=== PATIENT | male | born 1955 | race Caucasian/White ===

== ENCOUNTER 2019-10-03 13:52 | Inpatient (IN) | payer MEDICARE ==
[~2019-10-03] VITALS: Ht 175.3 cm; Wt 82.0 kg
[2019-10-03] MEDS ORDERED: LORazepam 2 mg/ml vial IV ONE (15:40)
[2019-10-03] MEDS ORDERED: thiamine 100mg/ml 2ml inj. IV ONE (15:40)
[2019-10-03] MEDS ORDERED: folic acid 1mg/0.2ml inj IV ONE (15:40)
[2019-10-03] MEDS ORDERED: normal saline 1000ML IV soln IVB ONE (15:40)
[2019-10-03 16:38] LABS: ALANINE AMINOTRANSFERASE 125 U/L (12-78); ALBUMIN 4.1 G/DL (3.4-5.0); ALKALINE PHOSPHATASE 87 IU/L (46-116); AMYLASE 80 U/L (25-115); ANION GAP 13 (8-16); ASPARTATE AMINO TRANSFERASE 111 U/L (10-37); BILIRUBIN,TOTAL 1.2 MG/DL (0.1-1.0); BLOOD UREA NITROGEN 40 MG/DL (7-18); BUN/CREATININE RATIO 15.2 (5.4-32.0); CALCIUM 10.2 MG/DL (8.5-10.1); CHLORIDE 90 MMOL/L (99-107); CREATININE 2.63 MG/DL (0.60-1.10); ETHANOL < 0.010 GM/DL (0.0-0.010); GLUCOSE 112 MG/DL (70-104); LIPASE 321 U/L (73-393); MAGNESIUM 1.4 MG/DL (1.5-2.4); POTASSIUM 5.2 MMOL/L (3.5-5.1); SODIUM 124 MMOL/L (135-145); TOTAL CARBON DIOXIDE 20.7 MMOL/L (24-32); TOTAL PROTEIN 8.1 G/DL (6.4-8.2); eGFR 24 ML/MIN
[2019-10-03] MEDS ORDERED: ondansetron/PF 4mg/2ml inj IV PRN (19:45)
[2019-10-03] MEDS ORDERED: acetaminophen 325mg tablet PO PRN (19:45)
[2019-10-03] MEDS ORDERED: potassium Cl 20 mEq SR tablet PO PRN ×2 (19:45)
[2019-10-03] MEDS ORDERED: potassium CL 10mEq/100ml bag 100 ML IV PRN ×2 (19:45)
[2019-10-03] MEDS ORDERED: magnesium 2GM in 50ml NS 50 ML IV PRN (19:45)
[2019-10-03] MEDS ORDERED: magnesium 4gm in 100ml NS 100 ML IV PRN (19:45)
[2019-10-03] MEDS: K and/or MAG REPLACEMENT MC SCH (20:00)
[2019-10-03 20:13] LABS: CLARITY,URINE CLEAR (Clear); COLOR,URINE AMBER (Yellow); GLUCOSE, URINE NEGATIVE (Neg); KETONES,URINE TRACE mg/dl (Neg); LEUKOCYTE ESTERASE ,URINE NEGATIVE (Neg); NITRITES, URINE NEGATIVE (Neg); OCCULT BLOOD,URINE NEGATIVE (Neg); PH,URINE 5.5 (4.8-8.0); PROTEIN,URINE NEGATIVE (Neg)
[2019-10-03 20:14] LABS: UA COLLECTION TYPE CLN CATCH MIDSTREAM
[2019-10-03 20:26] LABS: URINE AMPHETAMINE SCREEN NEGATIVE (Neg); URINE BARBITUATE SCREEN NEGATIVE (Neg); URINE BENZODIAZEPINES SCREEN NEGATIVE (Neg); URINE CANNABINOID SCREEN NEGATIVE (Neg); URINE COCAINE SCREEN NEGATIVE (Neg); URINE METHADONE SCREEN NEGATIVE (Neg); URINE OPIATE SCREEN NEGATIVE (Neg); URINE PHENCYCLIDINE SCREEN NEGATIVE (Neg)
--- NOTE | 2019-10-03 20:30 | NUR ---
Patient ER to be transferred in room PCU 3013A. I have received bedside report from Dale Campos RN and had the opportunity to ask questions and assume patient care.
[2019-10-03 20:50] VITALS: BP 152/61
[2019-10-03] MEDS: normal saline 1000ml 1,000 ML IV SCH (21:30)
[2019-10-03] MEDS: magnesium Cl slow-release 64mg tablet PO PRN (22:40)
[2019-10-03 23:00] VITALS: BP 134/57
--- NOTE | 2019-10-04 00:07 | NUR ---
PAGER ID: [phone] MESSAGE: Patient Sukhdeep Bolton in room 3013A is requesting a sleeping pill and/or pain pill due to ETOH tremor aches. [facility] Margo [phone]
--- NOTE | 2019-10-04 00:15 | NUR ---
has ordered PRN Tylenol 650 MG and stated she will soon be at bedside to do assessment.
[2019-10-04] MEDS ORDERED: dextrose 50%-water 50ml dispensing syringe IV PRN (00:55)
[2019-10-04] MEDS ORDERED: thiamine 100mg/ml 2ml inj. IV ONE (00:55)
[2019-10-04] MEDS ORDERED: haloperidol lactate 5mg/ml inj IM PRN (00:55)
[2019-10-04] MEDS ORDERED: haloperidol 5mg tablet PO PRN (00:55)
[2019-10-04] MEDS ORDERED: LORazepam 2 mg/ml vial IV PRN (00:55)
[2019-10-04] MEDS ORDERED: acetaminophen 325mg tablet PO PRN (01:00)
[2019-10-04 01:09] LABS: BASOPHILS # (AUTO) 0.1 X10'3 (0-0.2); BASOPHILS % (AUTO) 1.7 % (0-1); EOSINOPHILS # (AUTO) 0.1 X10'3 (0-0.9); EOSINOPHILS % (AUTO) 0.8 % (0-6); HEMOGLOBIN 12.8 g/dl (14.0-17.9); LYMPHOCYTES # (AUTO) 2.5 X10'3 (1.1-4.8); LYMPHOCYTES % (AUTO) 32.7 % (21-51); MEAN CORPUSCULAR HEMOGLOBIN 37.6 PG (27.0-31.0); MEAN CORPUSCULAR HGB CONC 34.7 g/dL (33.0-36.5); MEAN CORPUSCULAR VOLUME 108.5 FL (78-98); MEAN PLATELET VOLUME 8.7 FL (7.4-10.4); MONOCYTES # (AUTO) 1.1 X10'3 (0-0.9); MONOCYTES % (AUTO) 14.3 % (2-12); NEUTROPHILS # (AUTO) 3.8 X10'3 (1.8-7.7); NEUTROPHILS % (AUTO) 50.5 % (42-75); PLATELET COUNT 189 X10'3 (140-440); RED BLOOD COUNT 3.41 X10'6 (4.70-6.10); RED CELL DISTRIBUTION WIDTH 12.6 % (11.5-14.5); WHITE BLOOD COUNT 7.6 X10'3 (4.5-11.0)
[2019-10-04] MEDS: LORazepam 1 MG tablet PO PRN ×2 (01:12→20:32)
[2019-10-04] MEDS: Melatonin 3mg tablet PO PRN ×2 (01:13→20:32)
[2019-10-04 01:15] LABS: ALBUMIN 4.1 G/DL (3.4-5.0); ANION GAP 13 (8-16); BLOOD UREA NITROGEN 40 MG/DL (7-18); BUN/CREATININE RATIO 17.8 (5.4-32.0); CHLORIDE 91 MMOL/L (99-107); CREATININE 2.25 MG/DL (0.60-1.10); GLUCOSE 122 MG/DL (70-104); MAGNESIUM 1.4 MG/DL (1.5-2.4); SODIUM 125 MMOL/L (135-145); TOTAL CARBON DIOXIDE 20.8 MMOL/L (24-32); eGFR 29 ML/MIN
[2019-10-04 01:16] LABS: POTASSIUM 4.5 MMOL/L (3.5-5.1)
--- NOTE | 2019-10-04 01:20 | NUR ---
PAGER ID: [phone] MESSAGE: Patient Sukhdeep Bolton in room 3017P is experiencing constipation and is in need of MOM. U Margo [phone]
--- NOTE | 2019-10-04 01:25 | NUR ---
MD Garduno ordered a 1x order of MOM and BID colace 100 MG.
[2019-10-04] MEDS ORDERED: magnesium hydroxide 30ml (MOM) UD suspension PO ONE (01:30)
[2019-10-04 03:00] VITALS: BP 117/62
[2019-10-04 06:00] VITALS: BP 109/64
--- NOTE | 2019-10-04 06:24 | NUR ---
Patient in room PCU 3013. I have received report from RAFAELA Aragon and had the opportunity to ask questions and assume patient care.
--- NOTE | 2019-10-04 06:39 | NUR ---
Problems reprioritized. Patient report given, questions answered & plan of care reviewed with RAFAELA Esquivel.
[2019-10-04] MEDS: K and/or MAG REPLACEMENT MC SCH ×2 (08:00→20:00)
[2019-10-04] MEDS: docusate sod 100mg capsule PO SCH ×2 (08:24→20:30)
[2019-10-04] MEDS ORDERED: METO-411 (09:17)
[2019-10-04] MEDS ORDERED: SPIR25TA5 (09:17)
[2019-10-04] MEDS ORDERED: AMLO10TA13 (09:17)
[2019-10-04] MEDS ORDERED: LISI40TA4 (09:17)
[2019-10-04] MEDS ORDERED: PANT40TA4 (09:17)
[2019-10-04] MEDS ORDERED: HYDR12.55 (09:17)
[2019-10-04] MEDS ORDERED: pneumococcal 23-VAL P-sac vacc 25 mcg/0.5ml vial IMVAC ONE (10:00)
[2019-10-04] MEDS: normal saline 1000ml 1,000 ML IV SCH ×2 (10:51→21:12)
[2019-10-04] MEDS ORDERED: METO-411 PO (10:57)
[2019-10-04 11:00] VITALS: BP 100/52
[2019-10-04] MEDS ORDERED: PANT40TA4 PO (11:21)
[2019-10-04] MEDS ORDERED: HYDR12.55 PO (11:21)
[2019-10-04] MEDS ORDERED: AMLO10TA48 PO (11:21)
[2019-10-04] MEDS ORDERED: LISI40TA4 PO (11:21)
[2019-10-04] MEDS ORDERED: SPIR25TA5 PO (11:23)
[2019-10-04] MEDS: magnesium Cl slow-release 64mg tablet PO PRN (11:41)
[2019-10-04] MEDS ORDERED: bisacodyl 10mg suppository rectal RC STA (11:49)
[2019-10-04] MEDS: pantoprazole 40mg Tablet.DR PO SCH (14:03)
[2019-10-04 18:00] VITALS: BP 127/72
--- NOTE | 2019-10-04 18:16 | NUR ---
Problems reprioritized. Patient report given, questions answered & plan of care reviewed with RAFAELA Araujo.
--- NOTE | 2019-10-04 18:44 | NUR ---
Patient in room PCU 3013. I have received report from Eran RUSSO and had the opportunity to ask questions and assume patient care.
[2019-10-04] MEDS: lisinopril 20mg tablet PO SCH (20:31)
[2019-10-04 22:00] VITALS: BP 103/61
[2019-10-05 02:00] VITALS: BP 98/68
[2019-10-05] MEDS: LORazepam 1 MG tablet PO PRN (02:10)
[2019-10-05 06:00] VITALS: BP 132/69
[2019-10-05 06:07] LABS: BASOPHILS % (AUTO) 0.8 % (0-1); EOSINOPHILS % (AUTO) 0.6 % (0-6); HEMATOCRIT 29.3 % (42.0-52.0); HEMOGLOBIN 10.1 g/dl (14.0-17.9); LYMPHOCYTES # (AUTO) 1.7 X10'3 (1.1-4.8); LYMPHOCYTES % (AUTO) 30.4 % (21-51); MEAN CORPUSCULAR HEMOGLOBIN 37.5 PG (27.0-31.0); MEAN CORPUSCULAR HGB CONC 34.4 g/dL (33.0-36.5); MEAN CORPUSCULAR VOLUME 108.9 FL (78-98); MEAN PLATELET VOLUME 8.5 FL (7.4-10.4); MONOCYTES # (AUTO) 0.8 X10'3 (0-0.9); MONOCYTES % (AUTO) 14.5 % (2-12); NEUTROPHILS # (AUTO) 3.1 X10'3 (1.8-7.7); NEUTROPHILS % (AUTO) 53.7 % (42-75); PLATELET COUNT 145 X10'3 (140-440); RED BLOOD COUNT 2.69 X10'6 (4.70-6.10); RED CELL DISTRIBUTION WIDTH 13.1 % (11.5-14.5); WHITE BLOOD COUNT 5.8 X10'3 (4.5-11.0)
[2019-10-05 06:12] LABS: ALBUMIN 3.1 G/DL (3.4-5.0); ANION GAP 9 (8-16); BLOOD UREA NITROGEN 34 MG/DL (7-18); BUN/CREATININE RATIO 19.3 (5.4-32.0); CALCIUM 8.6 MG/DL (8.5-10.1); CHLORIDE 99 MMOL/L (99-107); CREATININE 1.76 MG/DL (0.60-1.10); GLUCOSE 103 MG/DL (70-104); MAGNESIUM 1.2 MG/DL (1.5-2.4); POTASSIUM 4.5 MMOL/L (3.5-5.1); SODIUM 131 MMOL/L (135-145); TOTAL CARBON DIOXIDE 22.6 MMOL/L (24-32); eGFR 39 ML/MIN
--- NOTE | 2019-10-05 07:22 | NUR ---
Problems reprioritized. Patient report given, questions answered & plan of care reviewed with Randa RUSSO.
[2019-10-05 07:25] LABS: PLATELET ESTIMATE NORMAL
[2019-10-05 07:26] LABS: ACANTHOCYTES FEW; BURR CELLS FEW
[2019-10-05] MEDS: K and/or MAG REPLACEMENT MC SCH ×2 (08:00→19:21)
[2019-10-05] MEDS ORDERED: amLODIPine 5mg tablet PO SCH (08:00)
[2019-10-05] MEDS: docusate sod 100mg capsule PO SCH ×2 (08:33→19:20)
[2019-10-05] MEDS: pantoprazole 40mg Tablet.DR PO SCH (08:33)
[2019-10-05] MEDS: lisinopril 20mg tablet PO SCH ×2 (08:34→19:20)
[2019-10-05] MEDS: normal saline 1000ml 1,000 ML IV SCH ×3 (08:36→22:37)
[2019-10-05 11:00] VITALS: BP 119/59
--- NOTE | 2019-10-05 12:44 | NUR ---
Patient in room PCU 3013. I have received report from RAFAELA Araujo and had the opportunity to ask questions and assume patient care. Patient currently sleeping, bed locked and low, call light in reach, visible rise and fall of chest, no acute distress, will continue to monitor.
[2019-10-05 15:00] VITALS: BP 149/70
[2019-10-05 18:00] VITALS: BP 125/70
--- NOTE | 2019-10-05 18:16 | NUR ---
Problems reprioritized. Patient report given, questions answered & plan of care reviewed with RAFAELA Dozier.
[2019-10-05] MEDS: magnesium Cl slow-release 64mg tablet PO PRN (19:21)
[2019-10-05] MEDS: Melatonin 3mg tablet PO PRN (21:47)
[2019-10-05 22:00] VITALS: BP 132/87
[2019-10-06 02:00] VITALS: BP 130/70
[2019-10-06 06:00] VITALS: BP 130/60
[2019-10-06 06:01] LABS: BASOPHILS # (AUTO) 0.1 X10'3 (0-0.2); BASOPHILS % (AUTO) 0.8 % (0-1); EOSINOPHILS % (AUTO) 0.7 % (0-6); HEMATOCRIT 26.9 % (42.0-52.0); HEMOGLOBIN 9.3 g/dl (14.0-17.9); LYMPHOCYTES # (AUTO) 2.1 X10'3 (1.1-4.8); LYMPHOCYTES % (AUTO) 31.5 % (21-51); MEAN CORPUSCULAR HEMOGLOBIN 37.9 PG (27.0-31.0); MEAN CORPUSCULAR HGB CONC 34.6 g/dL (33.0-36.5); MEAN CORPUSCULAR VOLUME 109.4 FL (78-98); MEAN PLATELET VOLUME 8.7 FL (7.4-10.4); MONOCYTES # (AUTO) 0.9 X10'3 (0-0.9); MONOCYTES % (AUTO) 13.1 % (2-12); NEUTROPHILS # (AUTO) 3.6 X10'3 (1.8-7.7); NEUTROPHILS % (AUTO) 53.9 % (42-75); PLATELET COUNT 137 X10'3 (140-440); RED BLOOD COUNT 2.46 X10'6 (4.70-6.10); WHITE BLOOD COUNT 6.7 X10'3 (4.5-11.0)
[2019-10-06 06:20] LABS: ALBUMIN 3.2 G/DL (3.4-5.0); ANION GAP 11 (8-16); BLOOD UREA NITROGEN 21 MG/DL (7-18); BUN/CREATININE RATIO 15.7 (5.4-32.0); CALCIUM 8.5 MG/DL (8.5-10.1); CHLORIDE 101 MMOL/L (99-107); CREATININE 1.34 MG/DL (0.60-1.10); GLUCOSE 100 MG/DL (70-104); POTASSIUM 3.9 MMOL/L (3.5-5.1); SODIUM 133 MMOL/L (135-145); TOTAL CARBON DIOXIDE 21.2 MMOL/L (24-32); eGFR 53 ML/MIN
--- NOTE | 2019-10-06 06:20 | NUR ---
Pt is stable on shift change. Patient report given, questions answered & plan of care reviewed with RAFAELA Tolentino.
--- NOTE | 2019-10-06 06:20 | NUR ---
Patient in room PCU 3013A. I have received report from aTsia RUSSO and had the opportunity to ask questions and assume patient care. Patient laying in bed, wakes to voice, stable at this time.
--- NOTE | 2019-10-06 06:24 | NUR ---
Critical lab result paged to Dr. Metcalf, replacement protocol in place. PAGER ID: [phone] MESSAGE: Randa duffy [phone]. Sandra Appiah [id number]. Critical lab: Mag 1.0. Replacement protocol in place. Will start replacement.
[2019-10-06] MEDS: normal saline 1000ml 1,000 ML IV SCH ×2 (08:07→17:45)
[2019-10-06] MEDS: K and/or MAG REPLACEMENT MC SCH ×2 (08:07→19:39)
[2019-10-06] MEDS: pantoprazole 40mg Tablet.DR PO SCH (08:08)
[2019-10-06] MEDS: amLODIPine 5mg tablet PO SCH (08:08)
[2019-10-06] MEDS: docusate sod 100mg capsule PO SCH ×2 (08:09→19:38)
[2019-10-06] MEDS: lisinopril 20mg tablet PO SCH ×2 (08:09→19:39)
[2019-10-06] MEDS: magnesium Cl slow-release 64mg tablet PO PRN ×2 (08:10→19:38)
[2019-10-06 11:00] VITALS: BP 145/85
[2019-10-06 15:00] VITALS: BP 135/65
[2019-10-06 18:00] VITALS: BP 135/63
--- NOTE | 2019-10-06 18:15 | NUR ---
Patient in room PCU 3013. I have received report from RAFAELA Tolentino and had the opportunity to ask questions and assume patient care.
--- NOTE | 2019-10-06 18:18 | NUR ---
Problems reprioritized. Patient report given, questions answered & plan of care reviewed with Dorothy RUSSO.
[2019-10-06 19:12] LABS: % IRON SATURATION 31 % (11-46); IRON 74 UG/DL (53-167); TOTAL IRON BINDING CAPACITY 241 UG/DL (259-388)
[2019-10-06] MEDS: Melatonin 3mg tablet PO PRN (21:01)
[2019-10-06 22:00] VITALS: BP 138/58
[2019-10-07 02:00] VITALS: BP 148/79
[2019-10-07] MEDS: normal saline 1000ml 1,000 ML IV SCH (03:51)
[2019-10-07 04:57] LABS: BASOPHILS % (AUTO) 0.8 % (0-1); EOSINOPHILS # (AUTO) 0.1 X10'3 (0-0.9); EOSINOPHILS % (AUTO) 0.9 % (0-6); HEMATOCRIT 28.8 % (42.0-52.0); HEMOGLOBIN 10.1 g/dl (14.0-17.9); LYMPHOCYTES # (AUTO) 1.8 X10'3 (1.1-4.8); MEAN CORPUSCULAR HEMOGLOBIN 38.5 PG (27.0-31.0); MEAN CORPUSCULAR VOLUME 109.8 FL (78-98); MEAN PLATELET VOLUME 8.6 FL (7.4-10.4); MONOCYTES # (AUTO) 0.7 X10'3 (0-0.9); MONOCYTES % (AUTO) 11.9 % (2-12); NEUTROPHILS # (AUTO) 3.3 X10'3 (1.8-7.7); NEUTROPHILS % (AUTO) 55.4 % (42-75); PLATELET COUNT 149 X10'3 (140-440); RED BLOOD COUNT 2.62 X10'6 (4.70-6.10); WHITE BLOOD COUNT 5.9 X10'3 (4.5-11.0)
[2019-10-07 05:07] LABS: ALBUMIN 3.2 G/DL (3.4-5.0); ANION GAP 10 (8-16); BLOOD UREA NITROGEN 13 MG/DL (7-18); BUN/CREATININE RATIO 10.5 (5.4-32.0); CALCIUM 8.6 MG/DL (8.5-10.1); CHLORIDE 104 MMOL/L (99-107); CREATININE 1.24 MG/DL (0.60-1.10); GLUCOSE 97 MG/DL (70-104); SODIUM 136 MMOL/L (135-145); TOTAL CARBON DIOXIDE 22.3 MMOL/L (24-32); eGFR 58 ML/MIN
[2019-10-07 05:10] LABS: POTASSIUM 4.1 MMOL/L (3.5-5.1)
[2019-10-07 05:13] LABS: MAGNESIUM 0.9 MG/DL (1.5-2.4)
[2019-10-07] MEDS: magnesium Cl slow-release 64mg tablet PO PRN ×2 (05:53→13:17)
--- NOTE | 2019-10-07 06:29 | NUR ---
Pt is stable on shift change. Patient report given, questions answered & plan of care reviewed with RAFAELA Bello.
--- NOTE | 2019-10-07 06:39 | NUR ---
Patient in room PCU 3013. I have received report from RAFAELA Ch and had the opportunity to ask questions and assume patient care.
[2019-10-07 07:00] VITALS: BP 153/76
--- NOTE | 2019-10-07 07:25 | NUR ---
Mark Garduno PAGER ID: [phone] MESSAGE: [id number]: Sukhdeep Bolton: FYI pt morning mag level was 0.9 from 1.0 yesterday. Currently being replaced with PO mag -Eugenia [phone]
--- NOTE | 2019-10-07 07:28 | NUR ---
New orders to place pt on Magnesium protocol from Laureen.
[2019-10-07] MEDS ORDERED: potassium CL 10mEq/100ml bag 100 ML IV PRN (07:30)
[2019-10-07] MEDS ORDERED: magnesium 2GM in 50ml NS 50 ML IV PRN (07:30)
[2019-10-07] MEDS ORDERED: magnesium Cl slow-release 64mg tablet PO PRN (07:30)
[2019-10-07] MEDS ORDERED: magnesium 4gm in 100ml NS 100 ML IV PRN (07:30)
[2019-10-07] MEDS ORDERED: potassium Cl 20 mEq SR tablet PO PRN ×2 (07:30)
[2019-10-07] MEDS: K and/or MAG REPLACEMENT MC SCH ×3 (08:00→08:10)
[2019-10-07] MEDS: docusate sod 100mg capsule PO SCH (08:09)
[2019-10-07] MEDS: pantoprazole 40mg Tablet.DR PO SCH (08:09)
[2019-10-07 08:11] VITALS: BP_SYST 137
[2019-10-07] MEDS: lisinopril 20mg tablet PO SCH (08:11)
[2019-10-07] MEDS: amLODIPine 5mg tablet PO SCH (08:11)
[2019-10-07] MEDS ORDERED: B12/1TAB3 PO (10:06)
--- NOTE | 2019-10-07 12:41 | NUR ---
Mark Garduno PAGER ID: [phone] MESSAGE: [id number]: Sukhdeep Bolton: Pt d/c paperwork states he is a transfer to a SNF, but case management does not see fit. Did you want to pt to be d/c home or with HH? Kindly advise! -zoe [phone]
--- NOTE | 2019-10-07 13:15 | NUR ---
Pt stable to be discharge per MD orders. Provided discharge teaching and instructions. Answered pt questions and concerns. No new medications to take shrimp picker from pharmacy at this time. Tele monitor removed. PIV removed with cannula intact. Belongings sent with pt. Pt transfer with aid via wheelchair to cab to home.
--- NOTE | 2019-10-07 13:18 | NUR ---
Notified Laureen of pts magnesium level of 0.9 today. Pt given 2gm of Mag IV per MD order. Pts PIV was infiltrated and pending discharge orders. Administered 128mg PO slow mag.
== END 2019-10-07 13:15 | disposition home or self-care (01) | DRG 640 ==
LOC: ER 13:52 → PCU 3S 21:10 → CMPBEDREQ 10-06 12:51
PROVIDERS: ADMIT Internal Medicine; ATTEND Internal Medicine
PROC: 3E0234Z Introduction of Serum, Toxoid and Vaccine into Muscle, Percutaneous Approach (ICD-10-PCS; principal; 2019-10-04)
DX: E87.1 Hypo-osmolality and hyponatremia (principal); N17.0 Acute kidney failure with tubular necrosis; F10.239 Alcohol dependence with withdrawal, unspecified; E86.0 Dehydration; G89.29 Other chronic pain; K21.9 Gastro-esophageal reflux disease without esophagitis; M10.9 Gout, unspecified; M54.9 Dorsalgia, unspecified; D53.9 Nutritional anemia, unspecified; E83.42 Hypomagnesemia; B18.2 Chronic viral hepatitis C; I10 Essential (primary) hypertension; Z23 Encounter for immunization
CPT/HCPCS: 36415; 80048; 80053; 80305; 80320; 81003; 82140; 82150; 82607; 82948; 83540; 83550; 83690; 83735; 85025; 87081; 90732; 96374; 96375; 99285; G0378; J2060; J3411; J3475; J3490; J7030

== ENCOUNTER 2019-11-17 18:41 | Inpatient (IN) | payer MEDICARE, MEDICAID ==
[~2019-11-17] VITALS: Ht 177.8 cm; Wt 87.0 kg
[~2019-11-17 18:41] MED LIST: ALLO100T PO; AMLO10TA13 PO; ATI1T PO; B12/1TAB3 PO; CHLO25CA10 PO; LISI40TA4 PO; METO-411 PO; PANT40TA4 PO; SPIR25TA5 PO
--- NOTE | 2019-11-17 19:15 | NUR ---
Pt arrived on floor acompanied by CROWN BLOCKER Pt ambulatory. Pt pleasant but confused asked to go to bathroom then urinated on floor of bed next to his. Easily redirected to use BR. Pt unable to provide History or Medication list.
[2019-11-17 20:05] LABS: MEAN PLATELET VOLUME 8.3 FL (7.4-10.4)
[2019-11-17 20:07] LABS: BASOPHILS % (AUTO) 0.6 % (0-1); EOSINOPHILS # (AUTO) 0.1 X10'3 (0-0.9); EOSINOPHILS % (AUTO) 0.7 % (0-6); HEMATOCRIT 28.8 % (42.0-52.0); LYMPHOCYTES # (AUTO) 1.8 X10'3 (1.1-4.8); LYMPHOCYTES % (AUTO) 21.9 % (21-51); MEAN CORPUSCULAR HEMOGLOBIN 38.2 PG (27.0-31.0); MEAN CORPUSCULAR HGB CONC 34.7 g/dL (33.0-36.5); MONOCYTES # (AUTO) 1.1 X10'3 (0-0.9); MONOCYTES % (AUTO) 13.3 % (2-12); NEUTROPHILS # (AUTO) 5.3 X10'3 (1.8-7.7); NEUTROPHILS % (AUTO) 63.5 % (42-75); PLATELET COUNT 229 X10'3 (140-440); RED BLOOD COUNT 2.61 X10'6 (4.70-6.10); RED CELL DISTRIBUTION WIDTH 13.5 % (11.5-14.5); WHITE BLOOD COUNT 8.3 X10'3 (4.5-11.0)
[2019-11-17 20:25] LABS: ALANINE AMINOTRANSFERASE 53 U/L (12-78); ALBUMIN 2.9 G/DL (3.4-5.0); ALBUMIN/GLOBULIN RATIO 0.8 (1.1-1.5); ALKALINE PHOSPHATASE 99 IU/L (46-116); ANION GAP 10 (8-16); ASPARTATE AMINO TRANSFERASE 55 U/L (10-37); BILIRUBIN,TOTAL 0.4 MG/DL (0.1-1.0); BLOOD UREA NITROGEN 12 MG/DL (7-18); BUN/CREATININE RATIO 8.7 (5.4-32.0); CALCIUM 8.7 MG/DL (8.5-10.1); CHLORIDE 100 MMOL/L (99-107); CREATININE 1.38 MG/DL (0.60-1.10); ETHANOL < 0.010 GM/DL (0.0-0.010); GLUCOSE 110 MG/DL (70-104); POTASSIUM 3.7 MMOL/L (3.5-5.1); SODIUM 135 MMOL/L (135-145); TOTAL CARBON DIOXIDE 25.3 MMOL/L (24-32); TOTAL PROTEIN 6.6 G/DL (6.4-8.2); eGFR 52 ML/MIN
[2019-11-17 21:16] LABS: TOTAL CELLS COUNTED 100
[2019-11-17 21:17] LABS: PLATELET ESTIMATE NORMAL
--- NOTE | 2019-11-17 21:51 | NUR ---
Up with assist to BR. Pt cooperative confused not oriented to place or situation.
--- NOTE | 2019-11-18 00:30 | NUR ---
This patient awoke and requested a urinal. The tech brought one to bedside and patient voided over self and bed. Patient is combative at times. Patient remains confused. Patient jumps out of bed. He is gently guided back to bed. Patient continues to get out of bed. Patient was cleaned and changed into new scrubs. Patient attempts to take clothing off.
[2019-11-18] MEDS ORDERED: LORazepam 2 mg/ml vial IM ONE ×2 (01:50→08:00)
[2019-11-18] MEDS ORDERED: diphenhydrAMINE 50 mg/ml inj IM ONE (01:50)
[2019-11-18] MEDS ORDERED: haloperidol lactate 5mg/ml inj IM ONE (01:50)
--- NOTE | 2019-11-18 01:50 | NUR ---
Patient is out of bed multiple times. Security at bedside. Patient postures at staff with an angry face. Patient raises a fist to staff. Patient gently placed to bed.
--- NOTE | 2019-11-18 02:26 | NUR ---
Patient has been given a B-52 IM. He still remains verbal and wants to get out of bed. Patient is redirected to person, place, and time.
--- NOTE | 2019-11-18 03:21 | NUR ---
Patient is restless, he still gets out of bed but can be brought to bed with gentle hands on and coaching. Patient remains disoriented.
--- NOTE | 2019-11-18 04:00 | NUR ---
Patient is awake and restless, somewhat sedate and more cooperative. Patient can now be coached to stay in bed.
[2019-11-18 04:22] LABS: CLARITY,URINE CLEAR (Clear); COLOR,URINE YELLOW (Yellow); GLUCOSE, URINE NEGATIVE (Neg); KETONES,URINE NEGATIVE (Neg); LEUKOCYTE ESTERASE ,URINE NEGATIVE (Neg); NITRITES, URINE NEGATIVE (Neg); OCCULT BLOOD,URINE NEGATIVE (Neg); PH,URINE 6.5 (4.8-8.0); PROTEIN,URINE NEGATIVE (Neg); UROBILINOGEN,URINE 0.2 E.U/dL (0.2-1.0)
[2019-11-18 04:23] LABS: UA COLLECTION TYPE VOIDED
[2019-11-18 04:39] LABS: URINE AMPHETAMINE SCREEN NEGATIVE (Neg); URINE BARBITUATE SCREEN POSITIVE (Neg); URINE BENZODIAZEPINES SCREEN POSITIVE (Neg); URINE CANNABINOID SCREEN NEGATIVE (Neg); URINE COCAINE SCREEN NEGATIVE (Neg); URINE METHADONE SCREEN NEGATIVE (Neg); URINE OPIATE SCREEN NEGATIVE (Neg); URINE PHENCYCLIDINE SCREEN NEGATIVE (Neg)
--- NOTE | 2019-11-18 05:00 | NUR ---
Patient is sleeping quietly on his left side.
--- NOTE | 2019-11-18 05:39 | NUR ---
Patient is now awake and out of bed. He is still confused. Patient ambulates to the restroom with assistance. After voiding in bathroom he returned to bed. Patient was given a clean scrub top as he kept taking the old one off. Patient was given warm blankets.
--- NOTE | 2019-11-18 06:30 | NUR ---
Patient is resting in bed peacefully right now on his right side. No distress observed.
[2019-11-18] MEDS ORDERED: LEVOMEFOLATE CALCIUM PO SCH (08:00)
[2019-11-18] MEDS ORDERED: B6 PO SCH (08:00)
[2019-11-18] MEDS ORDERED: B12 PO SCH (08:00)
[2019-11-18] MEDS: metoprolol succinate 25mg (24-HOUR) SR. Tablet PO SCH (08:00)
[2019-11-18] MEDS ORDERED: LORazepam 2 mg/ml vial ONE (08:03)
--- NOTE | 2019-11-18 08:15 | NUR ---
Received phone call from Hina in creative services writer. She is inquiring about patient's admit plan to the hospital. Discussed plan. Referred Hina to Dr. Lynch for further clarification of plan of care.
--- NOTE | 2019-11-18 08:28 | NUR ---
Patient woke up disoriented and soiled. Patient is oriented only to self with poor safety awareness and poor impulse control. Patient removed pants and was trying to leave the unit naked. Patient became agitated and was cussing when redirection was attempted. He states, "where is the kid? I want to see the kid". When asked who "the kid was" he responded "Allan". Patient was given Ativan IM for agitation. Patient is now sitting at side of bed eating.
--- NOTE | 2019-11-18 08:43 | NUR ---
Sangeetha santa in [facility] - 11/18/19 at 0928 by JOANNA Patient is Speaking on the phone to Ranjeet [phone].
--- NOTE | 2019-11-18 09:00 | NUR ---
RAFAELA Vigil at bedside attempting to place IV. Unsuccessful. Patient is pleasant and cooperative. No distress observed.
[2019-11-18] MEDS ORDERED: potassium CL 10mEq/100ml bag 100 ML IV PRN ×2 (09:15)
[2019-11-18] MEDS ORDERED: HYDROcodone/acetaminophen 10/325mg tab PO PRN (09:15)
[2019-11-18] MEDS ORDERED: magnesium 2GM in 50ml NS 50 ML IV PRN (09:15)
[2019-11-18] MEDS ORDERED: acetaminophen 325mg tablet PO PRN (09:15)
[2019-11-18] MEDS ORDERED: thiamine inj. 100 MG in normal saline 100ml IV soln 100 ML IV ONE (09:15)
[2019-11-18] MEDS ORDERED: potassium Cl 20 mEq SR tablet PO PRN ×2 (09:15)
[2019-11-18] MEDS ORDERED: mag hydrox/Alum hydrox/simeth 30ml oral suspension PO PRN (09:15)
[2019-11-18] MEDS ORDERED: magnesium 4gm in 100ml NS 100 ML IV PRN (09:15)
[2019-11-18] MEDS ORDERED: HYDROcodone/acetaminophen 5mg/325mg tablet PO PRN (09:15)
[2019-11-18] MEDS ORDERED: ondansetron/PF 4mg/2ml inj IV PRN (09:15)
--- NOTE | 2019-11-18 09:15 | NUR ---
Sangeetha santa in [facility] - 11/18/19 at 0928 by JOANNA Patient is being evaluated by Juan howe [facility].
[2019-11-18] MEDS: spironolactone 25 MG tablet PO SCH ×2 (09:46→20:37)
[2019-11-18] MEDS: amLODIPine 5mg tablet PO SCH (09:46)
[2019-11-18] MEDS: lisinopril 20mg tablet PO SCH ×2 (09:46→20:38)
[2019-11-18] MEDS: pantoprazole 40mg Tablet.DR PO SCH (09:47)
[2019-11-18] MEDS: allopurinol 100mg tablet PO SCH (09:55)
[2019-11-18] MEDS ORDERED: folic acid 1mg/0.2ml inj IV SCH (10:00)
[2019-11-18] MEDS ORDERED: thiamine 100mg/ml 2ml inj. IV SCH (10:00)
[2019-11-18] MEDS ORDERED: MVI, adult No.4 with vit. K 10 ML in dextrose 5% water 500ml 500 ML IV SCH ×2 (10:00)
--- NOTE | 2019-11-18 10:14 | NUR ---
Patient is seen attempting to get up out of bed. He reports that he needs to urinate and urinal was provided due to unsteady gait. Patient urinated small amount of dark yellow urine. He proceeds to try to walk towards other patient's bed on the unit. States "I want to go see the kids". Patient was re-directed back to bed.
--- NOTE | 2019-11-18 11:08 | NUR ---
Patient in room ED 21. I have received report from RAFAELA Serrano and had the opportunity to ask questions and assume patient care.
--- NOTE | 2019-11-18 11:09 | NUR ---
Called and gave report to RAFAELA Hunt on surgical who will be taking over care of this patient. IV saline locked in right wrist. Ordered fluids and medication are being transferred with patient. All items with patient and time of transfer to floor. He is transferred with assistance to W/C. Patient is pleasant and cooperative with care. No respiratory distress observed.
[2019-11-18 11:37] VITALS: BP 130/65
[2019-11-18 12:00] VITALS: BP 130/65
[2019-11-18] MEDS ORDERED: thiamine inj. 100 MG in normal saline 100ml IV soln 100 ML IV SCH (12:00)
[2019-11-18] MEDS: LORazepam 1 MG tablet PO PRN (16:14)
[2019-11-18 18:30] VITALS: BP 171/81
--- NOTE | 2019-11-18 18:45 | NUR ---
Problems reprioritized. Patient report given, questions answered & plan of care reviewed with RAFAELA Tejada. Pt had increased agitation this afternoon. Removed IV and Tele monitor by himself. PO Ativan given and notified. New order for sitter. Head MRI done. No s/s of seizure noted. will cont. to monitor.
[2019-11-18] MEDS: K and/or MAG REPLACEMENT MC SCH (20:00)
[2019-11-18] MEDS: QUEtiapine 25mg tablet PO SCH (20:39)
[2019-11-18] MEDS: lactulose 20gm/30ml cup PO SCH (20:39)
[2019-11-18] MEDS: chlordiazePOXIDE 25mg capsule PO SCH (20:39)
[2019-11-18] MEDS: heparin, porcine 5000 units/ml vial SQ SCH (20:39)
[2019-11-19] MEDS: LORazepam 1 MG tablet PO PRN ×5 (01:04→22:43)
[2019-11-19] MEDS ORDERED: LORazepam 2 mg/ml vial IV PRN (04:50)
--- NOTE | 2019-11-19 06:45 | NUR ---
Problems reprioritized. Patient report given, questions answered & plan of care reviewed with KAILASH. Addendum: 11/19/19 at 0646 by Hipolito Keating RN Amended: Links added.
--- NOTE | 2019-11-19 06:57 | NUR ---
Patient in room IGOR 355. I have received report from Terrell RUSSO and had the opportunity to ask questions and assume patient care.
[2019-11-19 07:41] VITALS: BP 148/63
[2019-11-19] MEDS: K and/or MAG REPLACEMENT MC SCH ×4 (08:00→20:00)
[2019-11-19] MEDS: thiamine 100mg tablet PO SCH (08:01)
[2019-11-19] MEDS: pantoprazole 40mg Tablet.DR PO SCH (08:01)
[2019-11-19] MEDS: allopurinol 100mg tablet PO SCH (08:02)
[2019-11-19] MEDS: folic acid 1mg tablet PO SCH (08:02)
[2019-11-19] MEDS: multivitamins, therapeutics tablet PO SCH (08:02)
[2019-11-19] MEDS: spironolactone 25 MG tablet PO SCH ×2 (08:03→20:17)
[2019-11-19] MEDS: lactulose 20gm/30ml cup PO SCH ×3 (08:03→20:17)
[2019-11-19] MEDS: heparin, porcine 5000 units/ml vial SQ SCH ×2 (08:04→20:00)
[2019-11-19] MEDS: amLODIPine 5mg tablet PO SCH (08:04)
[2019-11-19 09:17] LABS: BASOPHILS # (AUTO) 0.1 X10'3 (0-0.2); BASOPHILS % (AUTO) 1.7 % (0-1); EOSINOPHILS # (AUTO) 0.1 X10'3 (0-0.9); EOSINOPHILS % (AUTO) 1.5 % (0-6); HEMATOCRIT 35.4 % (42.0-52.0); HEMOGLOBIN 11.7 g/dl (14.0-17.9); LYMPHOCYTES # (AUTO) 2.2 X10'3 (1.1-4.8); LYMPHOCYTES % (AUTO) 33.9 % (21-51); MEAN CORPUSCULAR HEMOGLOBIN 36.7 PG (27.0-31.0); MEAN CORPUSCULAR HGB CONC 32.9 g/dL (33.0-36.5); MEAN CORPUSCULAR VOLUME 111.4 FL (78-98); MEAN PLATELET VOLUME 8.6 FL (7.4-10.4); MONOCYTES # (AUTO) 0.6 X10'3 (0-0.9); MONOCYTES % (AUTO) 9.5 % (2-12); NEUTROPHILS # (AUTO) 3.5 X10'3 (1.8-7.7); NEUTROPHILS % (AUTO) 53.4 % (42-75); PLATELET COUNT 213 X10'3 (140-440); RED BLOOD COUNT 3.18 X10'6 (4.70-6.10); RED CELL DISTRIBUTION WIDTH 13.8 % (11.5-14.5); WHITE BLOOD COUNT 6.6 X10'3 (4.5-11.0)
[2019-11-19 09:39] LABS: ALANINE AMINOTRANSFERASE 55 U/L (12-78); ALBUMIN 2.8 G/DL (3.4-5.0); ALBUMIN/GLOBULIN RATIO 0.7 (1.1-1.5); ALKALINE PHOSPHATASE 90 IU/L (46-116); AMYLASE 79 U/L (25-115); ANION GAP 11 (8-16); ASPARTATE AMINO TRANSFERASE 65 U/L (10-37); BILIRUBIN,TOTAL 0.4 MG/DL (0.1-1.0); BLOOD UREA NITROGEN 10 MG/DL (7-18); BUN/CREATININE RATIO 8.6 (5.4-32.0); CHLORIDE 100 MMOL/L (99-107); CREATININE 1.16 MG/DL (0.60-1.10); GLUCOSE 146 MG/DL (70-104); LIPASE 139 U/L (73-393); PHOSPHORUS 3.3 MG/DL (2.3-4.5); POTASSIUM 3.5 MMOL/L (3.5-5.1); SODIUM 135 MMOL/L (135-145); TOTAL CARBON DIOXIDE 24.1 MMOL/L (24-32); TOTAL PROTEIN 6.6 G/DL (6.4-8.2); eGFR 63 ML/MIN
[2019-11-19 09:41] LABS: MAGNESIUM 0.8 MG/DL (1.5-2.4)
--- NOTE | 2019-11-19 09:46 | NUR ---
PAGER ID: [phone] MESSAGE: Parker Hoang#[phone] - FYI critical mag of 0.8, will start Protocol ARJUN unless you want to do otherwise. Please advise. Thank you Tammy [phone] Notifmayela.
[2019-11-19 10:06] VITALS: BP 147/74
[2019-11-19] MEDS: metoprolol succinate 25mg (24-HOUR) SR. Tablet PO SCH (10:07)
[2019-11-19] MEDS: lisinopril 20mg tablet PO SCH ×2 (10:07→20:16)
[2019-11-19] MEDS: donepezil 5mg tablet PO SCH (10:09)
--- NOTE | 2019-11-19 10:27 | NUR ---
PAGER ID: [phone] MESSAGE: Sukhdeep mahoney#[phone] - Pt pulled his IV, do you want to leave him without one?? This is the 2nd IV pulled. Also, do you want to proceed replacing Mag 0.8 with PO per protocol, please call me let me know. Thank you so much. Tammy [phone]
[2019-11-19] MEDS ORDERED: potassium Cl 20 mEq SR tablet PO PRN ×2 (10:30)
[2019-11-19] MEDS ORDERED: potassium CL 10mEq/100ml bag 100 ML IV PRN (10:30)
[2019-11-19 11:00] VITALS: BP 157/75
[2019-11-19] MEDS: magnesium Cl slow-release 64mg tablet PO PRN ×2 (11:12→20:17)
--- NOTE | 2019-11-19 17:07 | NUR ---
PAGER ID: [phone] MESSAGE: Sukhdeep Hoang#[phone]-Spoke to my charge nurse Heide, she advised that Pt can be without an IV but we have to DC pt's telli. Or we can start new IV.Can you please advise.If IV off please put an order in for IV/telli DC.Thank you.Tammy [phone] order to either start a new IV or DC Iv & Telli.
[2019-11-19] MEDS: amox tr/potassium clavulanate 875/125mg TAB PO SCH (17:35)
--- NOTE | 2019-11-19 18:50 | NUR ---
Problems reprioritized. Patient report given, questions answered & plan of care reviewed with Ernesto RUSSO.
[2019-11-19] MEDS: QUEtiapine 25mg tablet PO SCH (20:16)
[2019-11-19] MEDS: lactobacillus rhamnosus 10,000 MMU CELLS/CAPSULE PO SCH (20:16)
[2019-11-19] MEDS: chlordiazePOXIDE 25mg capsule PO SCH (20:17)
[2019-11-20] VITALS: BP 141/57
--- NOTE | 2019-11-20 06:00 | NUR ---
Patient in room IGOR 355. I have received report from RAFAELA Orozco and had the opportunity to ask questions and assume patient care.
--- NOTE | 2019-11-20 06:11 | NUR ---
Problems reprioritized. Patient report given, questions answered & plan of care reviewed with Kelly RUSSO.
[2019-11-20 07:00] VITALS: BP 126/75
[2019-11-20] MEDS: K and/or MAG REPLACEMENT MC SCH ×2 (08:00→20:00)
[2019-11-20] MEDS: lactulose 20gm/30ml cup PO SCH ×3 (08:36→21:09)
[2019-11-20] MEDS: allopurinol 100mg tablet PO SCH (08:36)
[2019-11-20] MEDS: multivitamins, therapeutics tablet PO SCH (08:38)
[2019-11-20] MEDS: thiamine 100mg tablet PO SCH (08:38)
[2019-11-20] MEDS: amLODIPine 5mg tablet PO SCH (08:38)
[2019-11-20] MEDS: metoprolol succinate 25mg (24-HOUR) SR. Tablet PO SCH (08:38)
[2019-11-20] MEDS: folic acid 1mg tablet PO SCH (08:39)
[2019-11-20] MEDS: pantoprazole 40mg Tablet.DR PO SCH (08:39)
[2019-11-20] MEDS: amox tr/potassium clavulanate 875/125mg TAB PO SCH ×2 (08:39→17:23)
[2019-11-20] MEDS: heparin, porcine 5000 units/ml vial SQ SCH ×2 (08:39→21:10)
[2019-11-20] MEDS: spironolactone 25 MG tablet PO SCH ×2 (08:39→21:09)
[2019-11-20] MEDS: donepezil 5mg tablet PO SCH (08:39)
[2019-11-20] MEDS: lactobacillus rhamnosus 10,000 MMU CELLS/CAPSULE PO SCH ×2 (08:39→21:08)
[2019-11-20 08:50] LABS: BASOPHILS % (AUTO) 0.3 % (0-1); EOSINOPHILS # (AUTO) 0.1 X10'3 (0-0.9); HEMATOCRIT 32.2 % (42.0-52.0); HEMOGLOBIN 10.9 g/dl (14.0-17.9); LYMPHOCYTES # (AUTO) 1.9 X10'3 (1.1-4.8); LYMPHOCYTES % (AUTO) 27.8 % (21-51); MEAN CORPUSCULAR HEMOGLOBIN 37.1 PG (27.0-31.0); MEAN CORPUSCULAR HGB CONC 33.7 g/dL (33.0-36.5); MEAN CORPUSCULAR VOLUME 110.1 FL (78-98); MEAN PLATELET VOLUME 8.6 FL (7.4-10.4); MONOCYTES # (AUTO) 0.8 X10'3 (0-0.9); MONOCYTES % (AUTO) 11.6 % (2-12); NEUTROPHILS % (AUTO) 58.3 % (42-75); PLATELET COUNT 228 X10'3 (140-440); RED BLOOD COUNT 2.93 X10'6 (4.70-6.10); RED CELL DISTRIBUTION WIDTH 13.5 % (11.5-14.5); WHITE BLOOD COUNT 6.8 X10'3 (4.5-11.0)
[2019-11-20 10:38] LABS: ALANINE AMINOTRANSFERASE 57 U/L (12-78); ALBUMIN 2.9 G/DL (3.4-5.0); ALBUMIN/GLOBULIN RATIO 0.7 (1.1-1.5); ALKALINE PHOSPHATASE 78 IU/L (46-116); AMYLASE 70 U/L (25-115); ANION GAP 3 (8-16); ASPARTATE AMINO TRANSFERASE 63 U/L (10-37); BILIRUBIN,TOTAL 0.3 MG/DL (0.1-1.0); BLOOD UREA NITROGEN 8 MG/DL (7-18); BUN/CREATININE RATIO 6.5 (5.4-32.0); CALCIUM 9.2 MG/DL (8.5-10.1); CHLORIDE 101 MMOL/L (99-107); CREATININE 1.23 MG/DL (0.60-1.10); GLUCOSE 113 MG/DL (70-104); LIPASE 135 U/L (73-393); PHOSPHORUS 3.7 MG/DL (2.3-4.5); POTASSIUM 4.2 MMOL/L (3.5-5.1); SODIUM 133 MMOL/L (135-145); TOTAL CARBON DIOXIDE 28.9 MMOL/L (24-32); TOTAL PROTEIN 6.8 G/DL (6.4-8.2); eGFR 59 ML/MIN
[2019-11-20 10:46] LABS: PLATELET ESTIMATE NORMAL
[2019-11-20 11:00] VITALS: BP 132/63
[2019-11-20] MEDS: lisinopril 20mg tablet PO SCH ×2 (11:21→21:09)
[2019-11-20] MEDS: magnesium Cl slow-release 64mg tablet PO PRN ×2 (11:22→21:08)
[2019-11-20] MEDS: magnesium oxide 400mg tablet PO SCH ×2 (17:23→23:32)
--- NOTE | 2019-11-20 18:16 | NUR ---
Problems reprioritized. Patient report given, questions answered & plan of care reviewed with RAFAELA Owens.
--- NOTE | 2019-11-20 18:20 | NUR ---
Patient in room IGOR 359A. I have received report from Kelly RUSSO and had the opportunity to ask questions and assume patient care.
[2019-11-20 20:00] VITALS: BP 135/63
[2019-11-20] MEDS: chlordiazePOXIDE 25mg capsule PO SCH (21:08)
[2019-11-20] MEDS: QUEtiapine 25mg tablet PO SCH (21:09)
[2019-11-20] MEDS: LORazepam 1 MG tablet PO PRN (23:56)
[2019-11-21] MEDS: haloperidol lactate 5mg/ml inj IM PRN (00:47)
--- NOTE | 2019-11-21 06:00 | NUR ---
Patient in room IGOR 359. I have received report from RAFAELA Owens and had the opportunity to ask questions and assume patient care.
--- NOTE | 2019-11-21 06:31 | NUR ---
Problems reprioritized. Patient report given, questions answered & plan of care reviewed with Kelly RUSSO.
[2019-11-21 08:00] VITALS: BP 132/72
[2019-11-21] MEDS: lactulose 20gm/30ml cup PO SCH ×3 (08:00→21:27)
[2019-11-21] MEDS: K and/or MAG REPLACEMENT MC SCH ×2 (08:00→19:01)
[2019-11-21] MEDS: magnesium oxide 400mg tablet PO SCH ×3 (08:00→21:29)
[2019-11-21 08:08] LABS: BASOPHILS % (AUTO) 0.6 % (0-1); EOSINOPHILS # (AUTO) 0.1 X10'3 (0-0.9); EOSINOPHILS % (AUTO) 1.7 % (0-6); HEMATOCRIT 33.2 % (42.0-52.0); HEMOGLOBIN 11.3 g/dl (14.0-17.9); LYMPHOCYTES # (AUTO) 2.1 X10'3 (1.1-4.8); LYMPHOCYTES % (AUTO) 36.5 % (21-51); MEAN CORPUSCULAR HEMOGLOBIN 36.8 PG (27.0-31.0); MEAN CORPUSCULAR HGB CONC 33.9 g/dL (33.0-36.5); MEAN CORPUSCULAR VOLUME 108.5 FL (78-98); MEAN PLATELET VOLUME 8.5 FL (7.4-10.4); MONOCYTES # (AUTO) 0.6 X10'3 (0-0.9); MONOCYTES % (AUTO) 10.4 % (2-12); NEUTROPHILS # (AUTO) 2.9 X10'3 (1.8-7.7); NEUTROPHILS % (AUTO) 50.8 % (42-75); PLATELET COUNT 244 X10'3 (140-440); RED BLOOD COUNT 3.06 X10'6 (4.70-6.10); RED CELL DISTRIBUTION WIDTH 13.6 % (11.5-14.5); WHITE BLOOD COUNT 5.7 X10'3 (4.5-11.0)
[2019-11-21 08:31] LABS: ALANINE AMINOTRANSFERASE 57 U/L (12-78); ALBUMIN/GLOBULIN RATIO 0.8 (1.1-1.5); ALKALINE PHOSPHATASE 79 IU/L (46-116); AMYLASE 64 U/L (25-115); ANION GAP 8 (8-16); ASPARTATE AMINO TRANSFERASE 70 U/L (10-37); BILIRUBIN,TOTAL 0.4 MG/DL (0.1-1.0); BLOOD UREA NITROGEN 13 MG/DL (7-18); BUN/CREATININE RATIO 11.9 (5.4-32.0); CALCIUM 9.3 MG/DL (8.5-10.1); CHLORIDE 99 MMOL/L (99-107); CREATININE 1.09 MG/DL (0.60-1.10); GLUCOSE 79 MG/DL (70-104); LIPASE 123 U/L (73-393); MAGNESIUM 1.1 MG/DL (1.5-2.4); PHOSPHORUS 4.1 MG/DL (2.3-4.5); POTASSIUM 3.8 MMOL/L (3.5-5.1); SODIUM 134 MMOL/L (135-145); TOTAL CARBON DIOXIDE 26.7 MMOL/L (24-32); TOTAL PROTEIN 6.9 G/DL (6.4-8.2); eGFR 68 ML/MIN
--- NOTE | 2019-11-21 09:09 | NUR ---
Patient wakes with ease, but patient is too sedated to take oral medications at this time.
[2019-11-21 11:00] VITALS: BP 113/62
[2019-11-21] MEDS: folic acid 1mg tablet PO SCH (12:40)
[2019-11-21] MEDS: lisinopril 20mg tablet PO SCH ×2 (12:40→21:27)
[2019-11-21] MEDS: thiamine 100mg tablet PO SCH (12:40)
[2019-11-21] MEDS: pantoprazole 40mg Tablet.DR PO SCH (12:41)
[2019-11-21] MEDS: multivitamins, therapeutics tablet PO SCH (12:41)
[2019-11-21] MEDS: spironolactone 25 MG tablet PO SCH ×2 (12:41→21:26)
[2019-11-21] MEDS: allopurinol 100mg tablet PO SCH (12:41)
[2019-11-21] MEDS: amLODIPine 5mg tablet PO SCH (12:41)
[2019-11-21] MEDS: metoprolol succinate 25mg (24-HOUR) SR. Tablet PO SCH (12:41)
[2019-11-21] MEDS: amox tr/potassium clavulanate 875/125mg TAB PO SCH ×2 (12:42→17:46)
[2019-11-21] MEDS: donepezil 5mg tablet PO SCH (12:42)
[2019-11-21] MEDS: lactobacillus rhamnosus 10,000 MMU CELLS/CAPSULE PO SCH ×2 (12:42→21:25)
[2019-11-21] MEDS: heparin, porcine 5000 units/ml vial SQ SCH ×2 (12:43→21:29)
--- NOTE | 2019-11-21 18:00 | NUR ---
Problems reprioritized. Patient report given, questions answered & plan of care reviewed with RAFAELA Owens.
--- NOTE | 2019-11-21 18:10 | NUR ---
Patient in room IGOR 359. I have received report from Kelly RUSSO and had the opportunity to ask questions and assume patient care.
[2019-11-21 19:00] VITALS: BP 108/70
[2019-11-21] MEDS: QUEtiapine 25mg tablet PO SCH (21:26)
[2019-11-21] MEDS: chlordiazePOXIDE 25mg capsule PO SCH (21:26)
[2019-11-21] MEDS: LORazepam 0.5 MG tablet PO PRN (23:35)
--- NOTE | 2019-11-22 | NUR ---
Patient uncooperative and refuses to take vitals.
[2019-11-22] MEDS: haloperidol 5mg tablet PO PRN (00:54)
--- NOTE | 2019-11-22 01:00 | NUR ---
Patient received 0.5mg of Ativan but ineffective. Patient continues to be agitated, curses staff and refuses to wear hospital gown. Haldol given 5mg tab PRN as ordered.
--- NOTE | 2019-11-22 02:00 | NUR ---
Haldol 0.5mg effective, patient is resting comfortably in bed. No signs of distress.
[2019-11-22 06:30] VITALS: BP 127/77
--- NOTE | 2019-11-22 06:51 | NUR ---
Problems reprioritized. Patient report given, questions answered & plan of care reviewed with Evonne RUSSO.
[2019-11-22 07:46] LABS: BASOPHILS # (AUTO) 0.1 X10'3 (0-0.2); BASOPHILS % (AUTO) 1.4 % (0-1); EOSINOPHILS # (AUTO) 0.1 X10'3 (0-0.9); EOSINOPHILS % (AUTO) 1.6 % (0-6); HEMATOCRIT 33.4 % (42.0-52.0); HEMOGLOBIN 11.3 g/dl (14.0-17.9); LYMPHOCYTES # (AUTO) 2.1 X10'3 (1.1-4.8); MEAN CORPUSCULAR HEMOGLOBIN 36.7 PG (27.0-31.0); MEAN CORPUSCULAR HGB CONC 33.8 g/dL (33.0-36.5); MEAN CORPUSCULAR VOLUME 108.5 FL (78-98); MEAN PLATELET VOLUME 8.5 FL (7.4-10.4); MONOCYTES # (AUTO) 0.7 X10'3 (0-0.9); MONOCYTES % (AUTO) 10.6 % (2-12); NEUTROPHILS # (AUTO) 3.1 X10'3 (1.8-7.7); NEUTROPHILS % (AUTO) 51.4 % (42-75); PLATELET COUNT 251 X10'3 (140-440); RED BLOOD COUNT 3.08 X10'6 (4.70-6.10); RED CELL DISTRIBUTION WIDTH 13.5 % (11.5-14.5); WHITE BLOOD COUNT 6.1 X10'3 (4.5-11.0)
[2019-11-22 07:56] LABS: ALANINE AMINOTRANSFERASE 58 U/L (12-78); ALBUMIN 3.2 G/DL (3.4-5.0); ALBUMIN/GLOBULIN RATIO 0.8 (1.1-1.5); ALKALINE PHOSPHATASE 84 IU/L (46-116); AMYLASE 75 U/L (25-115); ANION GAP 8 (8-16); ASPARTATE AMINO TRANSFERASE 65 U/L (10-37); BILIRUBIN,TOTAL 0.5 MG/DL (0.1-1.0); BLOOD UREA NITROGEN 14 MG/DL (7-18); BUN/CREATININE RATIO 10.1 (5.4-32.0); CALCIUM 9.5 MG/DL (8.5-10.1); CHLORIDE 99 MMOL/L (99-107); CREATININE 1.38 MG/DL (0.60-1.10); GLUCOSE 99 MG/DL (70-104); LIPASE 131 U/L (73-393); MAGNESIUM 1.1 MG/DL (1.5-2.4); PHOSPHORUS 3.6 MG/DL (2.3-4.5); POTASSIUM 3.9 MMOL/L (3.5-5.1); SODIUM 133 MMOL/L (135-145); TOTAL CARBON DIOXIDE 25.9 MMOL/L (24-32); eGFR 52 ML/MIN
[2019-11-22] MEDS: K and/or MAG REPLACEMENT MC SCH ×2 (08:00→20:00)
[2019-11-22] MEDS: lisinopril 20mg tablet PO SCH ×2 (08:00→21:06)
[2019-11-22] MEDS: amox tr/potassium clavulanate 875/125mg TAB PO SCH ×2 (08:38→17:29)
[2019-11-22] MEDS: spironolactone 25 MG tablet PO SCH ×2 (08:38→21:06)
[2019-11-22] MEDS: lactobacillus rhamnosus 10,000 MMU CELLS/CAPSULE PO SCH ×2 (08:39→21:07)
[2019-11-22] MEDS: metoprolol succinate 25mg (24-HOUR) SR. Tablet PO SCH (08:39)
[2019-11-22] MEDS: thiamine 100mg tablet PO SCH (08:39)
[2019-11-22] MEDS: multivitamins, therapeutics tablet PO SCH (08:39)
[2019-11-22] MEDS: allopurinol 100mg tablet PO SCH (08:39)
[2019-11-22] MEDS: folic acid 1mg tablet PO SCH (08:39)
[2019-11-22] MEDS: magnesium oxide 400mg tablet PO SCH ×3 (08:39→21:05)
[2019-11-22] MEDS: amLODIPine 5mg tablet PO SCH (08:39)
[2019-11-22] MEDS: donepezil 5mg tablet PO SCH (08:40)
[2019-11-22] MEDS: QUEtiapine 25mg tablet PO SCH ×2 (08:40→21:05)
[2019-11-22] MEDS: heparin, porcine 5000 units/ml vial SQ SCH ×2 (08:40→21:07)
[2019-11-22] MEDS: pantoprazole 40mg Tablet.DR PO SCH (08:40)
[2019-11-22] MEDS: lactulose 20gm/30ml cup PO SCH ×3 (08:41→21:06)
--- NOTE | 2019-11-22 10:33 | NUR ---
Initial: Pt admit with ALOC with hx EtOH abuse. Pt currently receiving routine Thiamine, Folic acid, and MVI. Pt documented as confused and A/O x2, with a sitter at bedside. Despite ALOC pt eating well, on average with 75-100% PO intake on heart healthy diet meeting nutrient needs. LBM 11/20. Pt receiving routine Lactulose which may contribute to diarrhea. No nutrition intervention implemented at this time. Will continue to follow. Recommendations: 1) Continue heart healthy diet 2) Continue routine Thiamine, Folic acid, and MVI given EtOH hx and elevated MCV 3) Wt per rx Addendum: 11/22/19 at [address] Amended: Links added.
[2019-11-22] MEDS ORDERED: magnesium Cl slow-release 64mg tablet PO PRN (11:35)
[2019-11-22] MEDS ORDERED: magnesium 4gm in 100ml NS 100 ML IV PRN (11:35)
--- NOTE | 2019-11-22 15:15 | NUR ---
Patient in room IGOR 359. I have received report from RAFAELA Douglass and had the opportunity to ask questions and assume patient care.
--- NOTE | 2019-11-22 15:26 | NUR ---
Gave report to Tara RN.
[2019-11-22 15:36] VITALS: BP 145/70
--- NOTE | 2019-11-22 18:25 | NUR ---
Problems reprioritized. Patient report given, questions answered & plan of care reviewed with RAFAELA Owens.
--- NOTE | 2019-11-22 18:33 | NUR ---
Patient in room IGOR 359. I have received report from Tara RUSSO and had the opportunity to ask questions and assume patient care.
[2019-11-22 20:00] VITALS: BP 132/67
[2019-11-22] MEDS: chlordiazePOXIDE 25mg capsule PO SCH (21:04)
[2019-11-22] MEDS: LORazepam 0.5 MG tablet PO PRN (23:31)
[2019-11-23] VITALS: BP 135/72
[2019-11-23 06:00] VITALS: BP 134/68
[2019-11-23 06:37] LABS: BASOPHILS # (AUTO) 0.1 X10'3 (0-0.2); BASOPHILS % (AUTO) 1.3 % (0-1); EOSINOPHILS # (AUTO) 0.1 X10'3 (0-0.9); EOSINOPHILS % (AUTO) 1.1 % (0-6); HEMOGLOBIN 11.7 g/dl (14.0-17.9); LYMPHOCYTES # (AUTO) 2.1 X10'3 (1.1-4.8); MEAN CORPUSCULAR HEMOGLOBIN 36.2 PG (27.0-31.0); MEAN CORPUSCULAR HGB CONC 33.3 g/dL (33.0-36.5); MEAN CORPUSCULAR VOLUME 108.6 FL (78-98); MEAN PLATELET VOLUME 8.8 FL (7.4-10.4); MONOCYTES # (AUTO) 0.9 X10'3 (0-0.9); NEUTROPHILS # (AUTO) 3.8 X10'3 (1.8-7.7); NEUTROPHILS % (AUTO) 54.6 % (42-75); PLATELET COUNT 263 X10'3 (140-440); RED BLOOD COUNT 3.23 X10'6 (4.70-6.10); RED CELL DISTRIBUTION WIDTH 13.6 % (11.5-14.5)
--- NOTE | 2019-11-23 06:53 | NUR ---
Problems reprioritized. Patient report given, questions answered & plan of care reviewed with Annie RUSSO.
[2019-11-23 06:54] LABS: ALANINE AMINOTRANSFERASE 64 U/L (12-78); ALBUMIN 3.3 G/DL (3.4-5.0); ALBUMIN/GLOBULIN RATIO 0.8 (1.1-1.5); ALKALINE PHOSPHATASE 85 IU/L (46-116); AMYLASE 68 U/L (25-115); ANION GAP 9 (8-16); ASPARTATE AMINO TRANSFERASE 69 U/L (10-37); BILIRUBIN,TOTAL 0.5 MG/DL (0.1-1.0); BLOOD UREA NITROGEN 14 MG/DL (7-18); BUN/CREATININE RATIO 9.7 (5.4-32.0); CALCIUM 9.6 MG/DL (8.5-10.1); CHLORIDE 100 MMOL/L (99-107); CREATININE 1.44 MG/DL (0.60-1.10); GLUCOSE 105 MG/DL (70-104); LIPASE 127 U/L (73-393); MAGNESIUM 1.2 MG/DL (1.5-2.4); PHOSPHORUS 3.8 MG/DL (2.3-4.5); POTASSIUM 4.1 MMOL/L (3.5-5.1); SODIUM 134 MMOL/L (135-145); TOTAL CARBON DIOXIDE 25.1 MMOL/L (24-32); TOTAL PROTEIN 7.5 G/DL (6.4-8.2); eGFR 49 ML/MIN
--- NOTE | 2019-11-23 06:56 | NUR ---
Patient in room IGOR 359. I have received report from Graciela RUSSO and had the opportunity to ask questions and assume patient care.
[2019-11-23] MEDS: K and/or MAG REPLACEMENT MC SCH ×2 (08:00→20:00)
[2019-11-23] MEDS: metoprolol succinate 25mg (24-HOUR) SR. Tablet PO SCH (08:44)
[2019-11-23] MEDS: folic acid 1mg tablet PO SCH (08:44)
[2019-11-23] MEDS: pantoprazole 40mg Tablet.DR PO SCH (08:44)
[2019-11-23] MEDS: donepezil 5mg tablet PO SCH (08:44)
[2019-11-23] MEDS: multivitamins, therapeutics tablet PO SCH (08:44)
[2019-11-23] MEDS: magnesium oxide 400mg tablet PO SCH ×3 (08:45→20:29)
[2019-11-23] MEDS: lactobacillus rhamnosus 10,000 MMU CELLS/CAPSULE PO SCH ×2 (08:45→20:27)
[2019-11-23] MEDS: spironolactone 25 MG tablet PO SCH ×2 (08:45→20:27)
[2019-11-23] MEDS: amox tr/potassium clavulanate 875/125mg TAB PO SCH ×2 (08:45→17:54)
[2019-11-23] MEDS: QUEtiapine 25mg tablet PO SCH ×2 (08:45→20:29)
[2019-11-23] MEDS: lisinopril 20mg tablet PO SCH ×2 (08:45→20:28)
[2019-11-23] MEDS: allopurinol 100mg tablet PO SCH (08:45)
[2019-11-23] MEDS: lactulose 20gm/30ml cup PO SCH ×3 (08:46→20:29)
[2019-11-23] MEDS: amLODIPine 5mg tablet PO SCH (08:46)
[2019-11-23] MEDS: heparin, porcine 5000 units/ml vial SQ SCH ×2 (08:46→20:28)
[2019-11-23] MEDS: thiamine 100mg tablet PO SCH (08:46)
[2019-11-23 11:00] VITALS: BP 112/41
[2019-11-23] MEDS: LORazepam 0.5 MG tablet PO PRN (18:47)
--- NOTE | 2019-11-23 19:22 | NUR ---
patient has sitter all cares given. patient sleepy at times reluctant towards care. AGitated at times when awake. Ambulated x3 times with sitter which appears to help . Incontinent of B&B . Patient seen by Dr Clay. This staff member asked DR clay if she should continue to replace MG as it was 1,2. patient is already been given MG oxide TID so DR Clay recommended to not give any extra mg supplement and recheck labs in am as scheduled. Report given to Naz RUSSO
[2019-11-23 19:30] VITALS: BP 128/71
--- NOTE | 2019-11-23 20:08 | NUR ---
informed by am shift nurse Annie that Dr Garduno did not want any addition magnesium given; has scheduled mag ordered
[2019-11-23] MEDS: chlordiazePOXIDE 25mg capsule PO SCH (20:29)
[2019-11-24] MEDS: LORazepam 0.5 MG tablet PO PRN (02:44)
[2019-11-24 07:39] VITALS: BP 122/57
[2019-11-24] MEDS: amLODIPine 5mg tablet PO SCH (08:00)
[2019-11-24] MEDS: lisinopril 20mg tablet PO SCH ×2 (08:00→20:12)
[2019-11-24] MEDS: metoprolol succinate 25mg (24-HOUR) SR. Tablet PO SCH (08:00)
[2019-11-24] MEDS: heparin, porcine 5000 units/ml vial SQ SCH ×2 (08:00→20:08)
[2019-11-24] MEDS: K and/or MAG REPLACEMENT MC SCH ×2 (08:00→20:00)
[2019-11-24] MEDS: multivitamins, therapeutics tablet PO SCH (09:07)
[2019-11-24] MEDS: allopurinol 100mg tablet PO SCH (09:07)
[2019-11-24] MEDS: spironolactone 25 MG tablet PO SCH (09:07)
[2019-11-24] MEDS: thiamine 100mg tablet PO SCH (09:07)
[2019-11-24] MEDS: lactobacillus rhamnosus 10,000 MMU CELLS/CAPSULE PO SCH ×2 (09:07→20:08)
[2019-11-24] MEDS: folic acid 1mg tablet PO SCH (09:07)
[2019-11-24] MEDS: donepezil 5mg tablet PO SCH (09:08)
[2019-11-24] MEDS: QUEtiapine 25mg tablet PO SCH ×2 (09:08→20:09)
[2019-11-24] MEDS: amox tr/potassium clavulanate 875/125mg TAB PO SCH ×2 (09:08→20:31)
[2019-11-24] MEDS: pantoprazole 40mg Tablet.DR PO SCH (09:08)
[2019-11-24] MEDS: magnesium oxide 400mg tablet PO SCH ×3 (09:08→20:08)
[2019-11-24] MEDS: lactulose 20gm/30ml cup PO SCH ×3 (09:09→20:07)
--- NOTE | 2019-11-24 18:15 | NUR ---
Patient in room IGOR 359. I have received report from Tammy RUSSO and had the opportunity to ask questions and assume patient care.
--- NOTE | 2019-11-24 18:30 | NUR ---
Problems reprioritized. Patient report given, questions answered & plan of care reviewed with Manasa RUSSO.
[2019-11-24 20:00] VITALS: BP 120/65
[2019-11-24] MEDS: chlordiazePOXIDE 25mg capsule PO SCH (20:09)
[2019-11-24] MEDS: dextrose 5%-water 1,000 ML IV SCH (23:41)
[2019-11-24] MEDS: haloperidol 5mg tablet PO PRN (23:45)
[2019-11-25] VITALS: BP 100/53
--- NOTE | 2019-11-25 06:30 | NUR ---
Problems reprioritized. Patient report given, questions answered & plan of care reviewed with Camille RUSSO.
--- NOTE | 2019-11-25 06:34 | NUR ---
Patient in room IGOR 359. I have received report from RAFAELA GARCIAS and had the opportunity to ask questions and assume patient care.
[2019-11-25] MEDS: lisinopril 20mg tablet PO SCH ×2 (07:51→20:26)
[2019-11-25] MEDS: amox tr/potassium clavulanate 875/125mg TAB PO SCH ×2 (07:51→17:17)
[2019-11-25] MEDS: donepezil 5mg tablet PO SCH (07:51)
[2019-11-25] MEDS: thiamine 100mg tablet PO SCH (07:51)
[2019-11-25] MEDS: QUEtiapine 25mg tablet PO SCH ×2 (07:51→20:26)
[2019-11-25] MEDS: magnesium oxide 400mg tablet PO SCH ×3 (07:52→20:26)
[2019-11-25] MEDS: lactobacillus rhamnosus 10,000 MMU CELLS/CAPSULE PO SCH ×2 (07:52→20:26)
[2019-11-25] MEDS: folic acid 1mg tablet PO SCH (07:52)
[2019-11-25] MEDS: metoprolol succinate 25mg (24-HOUR) SR. Tablet PO SCH (07:52)
[2019-11-25] MEDS: multivitamins, therapeutics tablet PO SCH (07:52)
[2019-11-25] MEDS: pantoprazole 40mg Tablet.DR PO SCH (07:52)
[2019-11-25] MEDS: amLODIPine 5mg tablet PO SCH (07:52)
[2019-11-25] MEDS: lactulose 20gm/30ml cup PO SCH ×3 (07:52→20:25)
[2019-11-25] MEDS: heparin, porcine 5000 units/ml vial SQ SCH ×3 (07:53→20:25)
[2019-11-25 08:00] VITALS: BP 127/60
[2019-11-25] MEDS: allopurinol 100mg tablet PO SCH (08:00)
[2019-11-25] MEDS: K and/or MAG REPLACEMENT MC SCH ×2 (08:00→20:00)
[2019-11-25] MEDS: dextrose 5%-water 1,000 ML IV SCH (10:15)
[2019-11-25 11:32] VITALS: BP 119/62
--- NOTE | 2019-11-25 18:39 | NUR ---
Problems reprioritized. Patient report given, questions answered & plan of care reviewed with RAFAELA GARCIAS.
[2019-11-25 20:00] VITALS: BP 117/66
[2019-11-25] MEDS: chlordiazePOXIDE 25mg capsule PO SCH (20:26)
[2019-11-26 00:12] VITALS: BP 107/66
--- NOTE | 2019-11-26 06:24 | NUR ---
Problems reprioritized. Patient report given, questions answered & plan of care reviewed with Maryan RUSSO.
--- NOTE | 2019-11-26 06:29 | NUR ---
Patient in room IGOR 359. I have received report from RAFAELA Goel and had the opportunity to ask questions and assume patient care.
[2019-11-26 07:00] VITALS: BP 128/72
[2019-11-26] MEDS: lactulose 20gm/30ml cup PO SCH (07:04)
[2019-11-26] MEDS: dextrose 5%-water 1,000 ML IV SCH (07:31)
[2019-11-26] MEDS: allopurinol 100mg tablet PO SCH (07:31)
[2019-11-26] MEDS: QUEtiapine 25mg tablet PO SCH ×2 (07:31→20:39)
[2019-11-26] MEDS: amLODIPine 5mg tablet PO SCH (07:31)
[2019-11-26] MEDS: metoprolol succinate 25mg (24-HOUR) SR. Tablet PO SCH (07:31)
[2019-11-26] MEDS: lactobacillus rhamnosus 10,000 MMU CELLS/CAPSULE PO SCH ×2 (07:31→20:39)
[2019-11-26] MEDS: thiamine 100mg tablet PO SCH (07:31)
[2019-11-26] MEDS: lisinopril 20mg tablet PO SCH ×2 (07:31→20:40)
[2019-11-26] MEDS: donepezil 5mg tablet PO SCH (07:31)
[2019-11-26] MEDS: folic acid 1mg tablet PO SCH (07:32)
[2019-11-26] MEDS: heparin, porcine 5000 units/ml vial SQ SCH ×2 (07:32→20:41)
[2019-11-26] MEDS: pantoprazole 40mg Tablet.DR PO SCH (07:32)
[2019-11-26] MEDS: multivitamins, therapeutics tablet PO SCH (07:32)
[2019-11-26] MEDS: magnesium oxide 400mg tablet PO SCH ×3 (07:32→20:39)
[2019-11-26] MEDS: amox tr/potassium clavulanate 875/125mg TAB PO SCH ×2 (07:33→17:11)
[2019-11-26] MEDS: K and/or MAG REPLACEMENT MC SCH ×2 (08:00→20:00)
--- NOTE | 2019-11-26 10:20 | NUR ---
Pt moved to room 357A with all belongings.
[2019-11-26 11:00] VITALS: BP 108/43
[2019-11-26] MEDS: haloperidol 5mg tablet PO PRN ×2 (12:35→17:11)
[2019-11-26] MEDS: haloperidol lactate 5mg/ml inj IM PRN (13:42)
--- NOTE | 2019-11-26 17:00 | NUR ---
Pt becoming increasingly agitated and combative. Hospitalist paged.
--- NOTE | 2019-11-26 17:15 | NUR ---
Orders received for 1mg IV ativan x1 dose. Repeat in 15 minutes if not effective.
[2019-11-26] MEDS ORDERED: LORazepam 2 mg/ml vial IV ONE ×2 (17:30→17:55)
--- NOTE | 2019-11-26 18:30 | NUR ---
Patient in room IGOR 357. I have received report from Maryan RUSSO and had the opportunity to ask questions and assume patient care.
--- NOTE | 2019-11-26 18:37 | NUR ---
Problems reprioritized. Patient report given, questions answered & plan of care reviewed with RAFAELA Goel.
[2019-11-26 20:00] VITALS: BP 128/66
[2019-11-26] MEDS: chlordiazePOXIDE 25mg capsule PO SCH (20:40)
[2019-11-27] VITALS: BP 143/76
[2019-11-27] MEDS: haloperidol lactate 5mg/ml inj IM PRN (02:07)
[2019-11-27] MEDS: dextrose 5%-water 1,000 ML IV SCH ×2 (02:22→22:25)
--- NOTE | 2019-11-27 06:19 | NUR ---
Problems reprioritized. Patient report given, questions answered & plan of care reviewed with Maryan RUSSO.
--- NOTE | 2019-11-27 06:33 | NUR ---
Patient in room IGOR 357. I have received report from RAFAELA Goel and had the opportunity to ask questions and assume patient care.
[2019-11-27 07:30] VITALS: BP 119/60
[2019-11-27 07:32] LABS: BASOPHILS # (AUTO) 0.1 X10'3 (0-0.2); BASOPHILS % (AUTO) 0.9 % (0-1); EOSINOPHILS # (AUTO) 0.3 X10'3 (0-0.9); HEMATOCRIT 35.9 % (42.0-52.0); LYMPHOCYTES # (AUTO) 2.4 X10'3 (1.1-4.8); LYMPHOCYTES % (AUTO) 33.7 % (21-51); MEAN CORPUSCULAR HEMOGLOBIN 36.3 PG (27.0-31.0); MEAN CORPUSCULAR HGB CONC 33.6 g/dL (33.0-36.5); MEAN CORPUSCULAR VOLUME 108.3 FL (78-98); MEAN PLATELET VOLUME 8.8 FL (7.4-10.4); MONOCYTES % (AUTO) 13.2 % (2-12); NEUTROPHILS # (AUTO) 3.5 X10'3 (1.8-7.7); NEUTROPHILS % (AUTO) 48.2 % (42-75); PLATELET COUNT 245 X10'3 (140-440); RED BLOOD COUNT 3.31 X10'6 (4.70-6.10); RED CELL DISTRIBUTION WIDTH 13.3 % (11.5-14.5); WHITE BLOOD COUNT 7.2 X10'3 (4.5-11.0)
[2019-11-27] MEDS: folic acid 1mg tablet PO SCH (08:00)
[2019-11-27] MEDS: magnesium oxide 400mg tablet PO SCH ×3 (08:00→20:45)
[2019-11-27] MEDS: lactobacillus rhamnosus 10,000 MMU CELLS/CAPSULE PO SCH ×2 (08:00→20:45)
[2019-11-27] MEDS: multivitamins, therapeutics tablet PO SCH (08:00)
[2019-11-27] MEDS: lisinopril 20mg tablet PO SCH ×2 (08:00→20:46)
[2019-11-27] MEDS: metoprolol succinate 25mg (24-HOUR) SR. Tablet PO SCH (08:00)
[2019-11-27] MEDS: pantoprazole 40mg Tablet.DR PO SCH (08:00)
[2019-11-27] MEDS: K and/or MAG REPLACEMENT MC SCH ×2 (08:00→20:00)
[2019-11-27] MEDS: thiamine 100mg tablet PO SCH (08:00)
[2019-11-27 08:01] LABS: ALBUMIN 3.1 G/DL (3.4-5.0); ANION GAP 8 (8-16); BLOOD UREA NITROGEN 17 MG/DL (7-18); BUN/CREATININE RATIO 12.1 (5.4-32.0); CALCIUM 9.5 MG/DL (8.5-10.1); CHLORIDE 102 MMOL/L (99-107); GLUCOSE 102 MG/DL (70-104); POTASSIUM 4.1 MMOL/L (3.5-5.1); SODIUM 136 MMOL/L (135-145); TOTAL CARBON DIOXIDE 25.8 MMOL/L (24-32); eGFR 51 ML/MIN
[2019-11-27] MEDS: amox tr/potassium clavulanate 875/125mg TAB PO SCH (09:12)
[2019-11-27] MEDS: heparin, porcine 5000 units/ml vial SQ SCH ×2 (09:16→20:00)
[2019-11-27] MEDS: lactulose 20gm/30ml cup PO SCH (09:17)
[2019-11-27] MEDS: donepezil 5mg tablet PO SCH (09:19)
[2019-11-27] MEDS: QUEtiapine 25mg tablet PO SCH ×2 (09:19→20:45)
[2019-11-27] MEDS: allopurinol 100mg tablet PO SCH (09:21)
[2019-11-27] MEDS: amLODIPine 5mg tablet PO SCH (09:21)
[2019-11-27 11:00] VITALS: BP 114/56
--- NOTE | 2019-11-27 11:19 | NUR ---
Reassessment: Pt remains A/O x 1 and confused. Pt combative at times per physical assessment. Per MD notes pt with possible Wernicke encephalopathy and MRI is negative for any acute CVA. PO intake fluctuates with average 50-75% with some 100% PO intake likely closely meeting nutrient needs. Pt continues with a sitter and documented to be receiving assistance with meals. LBM 11/26. Per MD notes Lactulose rx was decreased d/t patient's c/o diarrhea. Will continue to follow and make recommendations as appropriate. Recommendations: 1) Continue heart healthy diet 2) Encourage PO intake 3) Continue routine Thiamine, Folic acid, and MVI given EtOH hx and elevated MCV 4) Wt per rx Addendum: 11/27/19 at [address] Amended: Links added.
--- NOTE | 2019-11-27 18:28 | NUR ---
Problems reprioritized. Patient report given, questions answered & plan of care reviewed with RAFAELA Orozco.
[2019-11-27 20:00] VITALS: BP 136/65
[2019-11-27] MEDS: chlordiazePOXIDE 25mg capsule PO SCH (20:46)
[2019-11-27] MEDS: haloperidol 5mg tablet PO PRN (22:10)
[2019-11-28] VITALS: BP 144/62
--- NOTE | 2019-11-28 06:33 | NUR ---
Patient in room IGOR 357. I have received report from Ernesto RUSSO and had the opportunity to ask questions and assume patient care.
[2019-11-28 07:44] VITALS: BP 99/47
[2019-11-28] MEDS: allopurinol 100mg tablet PO SCH (08:00)
[2019-11-28] MEDS: folic acid 1mg tablet PO SCH (08:00)
[2019-11-28] MEDS: K and/or MAG REPLACEMENT MC SCH ×2 (08:00→20:00)
[2019-11-28] MEDS: pantoprazole 40mg Tablet.DR PO SCH (08:00)
[2019-11-28] MEDS: multivitamins, therapeutics tablet PO SCH (08:00)
[2019-11-28] MEDS: thiamine 100mg tablet PO SCH (08:00)
[2019-11-28] MEDS: lactobacillus rhamnosus 10,000 MMU CELLS/CAPSULE PO SCH ×2 (08:00→22:02)
[2019-11-28] MEDS: metoprolol succinate 25mg (24-HOUR) SR. Tablet PO SCH (08:00)
[2019-11-28] MEDS: QUEtiapine 25mg tablet PO SCH ×2 (08:00→22:01)
[2019-11-28] MEDS: lisinopril 20mg tablet PO SCH ×2 (08:00→22:01)
[2019-11-28] MEDS: magnesium oxide 400mg tablet PO SCH ×3 (08:00→22:02)
[2019-11-28] MEDS: amLODIPine 5mg tablet PO SCH (08:00)
[2019-11-28] MEDS: lactulose 20gm/30ml cup PO SCH (08:00)
[2019-11-28] MEDS: heparin, porcine 5000 units/ml vial SQ SCH ×2 (08:47→20:00)
[2019-11-28 11:00] VITALS: BP 111/56
--- NOTE | 2019-11-28 16:00 | NUR ---
Patient very sleepy woke a few times. Sitter present, patient when awake refusing to take meds. 1100hrs managed to give patient meds in applesauce. Seen by DR segovia. B/P 56 ,, Dr henriquez aware, Refused to keep clothes on, restless at times but able to calm down without meds. will continue to monitor Addendum: 11/28/19 at 1800 by Annie Vazquez RN patient only seen by Dr Eisenberg not Dr Segovia
[2019-11-28] MEDS: dextrose 5%-water 1,000 ML IV SCH (17:23)
--- NOTE | 2019-11-28 18:00 | NUR ---
Problems reprioritized. Patient report given, questions answered & plan of care reviewed with Ernesto RUSSO.
[2019-11-28 20:00] VITALS: BP 111/54
[2019-11-28] MEDS: chlordiazePOXIDE 25mg capsule PO SCH (22:02)
[2019-11-29] VITALS: BP 120/60
--- NOTE | 2019-11-29 06:00 | NUR ---
Patient in room IGOR 357. I have received report from RAFAELA Orozco and had the opportunity to ask questions and assume patient care.
[2019-11-29 08:00] VITALS: BP 124/52
[2019-11-29] MEDS: K and/or MAG REPLACEMENT MC SCH ×2 (08:00→20:00)
[2019-11-29] MEDS: folic acid 1mg tablet PO SCH (08:18)
[2019-11-29] MEDS: lactulose 20gm/30ml cup PO SCH (08:18)
[2019-11-29] MEDS: metoprolol succinate 25mg (24-HOUR) SR. Tablet PO SCH (08:19)
[2019-11-29] MEDS: pantoprazole 40mg Tablet.DR PO SCH (08:19)
[2019-11-29] MEDS: lisinopril 20mg tablet PO SCH ×2 (08:19→20:52)
[2019-11-29] MEDS: magnesium oxide 400mg tablet PO SCH ×3 (08:19→20:49)
[2019-11-29] MEDS: allopurinol 100mg tablet PO SCH (08:20)
[2019-11-29] MEDS: lactobacillus rhamnosus 10,000 MMU CELLS/CAPSULE PO SCH ×2 (08:20→20:52)
[2019-11-29] MEDS: amLODIPine 5mg tablet PO SCH (08:20)
[2019-11-29] MEDS: heparin, porcine 5000 units/ml vial SQ SCH ×2 (08:20→20:00)
[2019-11-29] MEDS: multivitamins, therapeutics tablet PO SCH (08:20)
[2019-11-29] MEDS: QUEtiapine 25mg tablet PO SCH ×2 (08:20→20:52)
[2019-11-29] MEDS: thiamine 100mg tablet PO SCH (08:20)
[2019-11-29 11:00] VITALS: BP 122/61
[2019-11-29] MEDS: dextrose 5%-water 1,000 ML IV SCH (11:06)
[2019-11-29 18:00] VITALS: BP 108/60
--- NOTE | 2019-11-29 18:12 | NUR ---
Problems reprioritized. Patient report given, questions answered & plan of care reviewed with RAFAELA Orozco.
[2019-11-29] MEDS: chlordiazePOXIDE 25mg capsule PO SCH (20:49)
[2019-11-30] VITALS: BP 140/57
[2019-11-30 07:38] VITALS: BP 107/63
[2019-11-30] MEDS: lisinopril 20mg tablet PO SCH ×2 (08:00→19:59)
[2019-11-30] MEDS: K and/or MAG REPLACEMENT MC SCH ×2 (08:00→20:00)
[2019-11-30] MEDS: metoprolol succinate 25mg (24-HOUR) SR. Tablet PO SCH (08:00)
[2019-11-30] MEDS: lactulose 20gm/30ml cup PO SCH (09:22)
[2019-11-30] MEDS: pantoprazole 40mg Tablet.DR PO SCH (09:23)
[2019-11-30] MEDS: multivitamins, therapeutics tablet PO SCH (09:23)
[2019-11-30] MEDS: magnesium oxide 400mg tablet PO SCH ×3 (09:23→20:20)
[2019-11-30] MEDS: lactobacillus rhamnosus 10,000 MMU CELLS/CAPSULE PO SCH ×2 (09:23→20:02)
[2019-11-30] MEDS: allopurinol 100mg tablet PO SCH (09:23)
[2019-11-30] MEDS: amLODIPine 5mg tablet PO SCH (09:24)
[2019-11-30] MEDS: folic acid 1mg tablet PO SCH (09:24)
[2019-11-30] MEDS: thiamine 100mg tablet PO SCH (09:27)
[2019-11-30] MEDS: QUEtiapine 25mg tablet PO SCH ×2 (09:27→19:53)
[2019-11-30] MEDS: heparin, porcine 5000 units/ml vial SQ SCH ×2 (09:33→20:08)
[2019-11-30] MEDS: dextrose 5%-water 1,000 ML IV SCH (10:25)
[2019-11-30 11:00] VITALS: BP 107/64
--- NOTE | 2019-11-30 13:43 | NUR ---
Reassessment: Pt PO fluctuates overall 25-50% meals, 50% avg outside of 3 meal refusals past 5 days w/ Wernicke's encephalopathy and AOx1. PO does increase to 100% some meals as well. Ensure pudding added to breakfasts since appear to be pt most consistent PO intake. LBM 11/26 receiving lactulose. Will continue to monitor. Recommendations: 1) Continue heart healthy diet 2) Encourage PO intake; ensure pudding at breakfasts 3) Continue routine Thiamine, Folic acid, and MVI given EtOH hx and elevated MCV 4) Routine bowel care 5) Wt per rx Addendum: 11/30/19 at [address] Amended: Links added.
--- NOTE | 2019-11-30 18:40 | NUR ---
Patient in room IGOR 357. I have received report from Evonne RUSSO and had the opportunity to ask questions and assume patient care.
--- NOTE | 2019-11-30 18:58 | NUR ---
Gave report to Marleny RUSSO.
[2019-11-30 20:00] VITALS: BP 101/62
[2019-11-30] MEDS: chlordiazePOXIDE 25mg capsule PO SCH (20:01)
[2019-12-01 00:04] VITALS: BP 121/40
[2019-12-01] MEDS: haloperidol 5mg tablet PO PRN (00:27)
[2019-12-01] MEDS: dextrose 5%-water 1,000 ML IV SCH (00:37)
[2019-12-01 05:34] LABS: BASOPHILS # (AUTO) 0.1 X10'3 (0-0.2); BASOPHILS % (AUTO) 0.6 % (0-1); EOSINOPHILS # (AUTO) 0.2 X10'3 (0-0.9); EOSINOPHILS % (AUTO) 1.9 % (0-6); HEMATOCRIT 32.2 % (42.0-52.0); HEMOGLOBIN 11.2 g/dl (14.0-17.9); MEAN CORPUSCULAR HEMOGLOBIN 36.7 PG (27.0-31.0); MEAN CORPUSCULAR HGB CONC 34.7 g/dL (33.0-36.5); MEAN CORPUSCULAR VOLUME 105.7 FL (78-98); MONOCYTES # (AUTO) 1.1 X10'3 (0-0.9); MONOCYTES % (AUTO) 12.7 % (2-12); NEUTROPHILS # (AUTO) 4.5 X10'3 (1.8-7.7); NEUTROPHILS % (AUTO) 50.8 % (42-75); PLATELET COUNT 237 X10'3 (140-440); RED BLOOD COUNT 3.05 X10'6 (4.70-6.10); RED CELL DISTRIBUTION WIDTH 13.1 % (11.5-14.5); WHITE BLOOD COUNT 8.9 X10'3 (4.5-11.0)
[2019-12-01 06:05] LABS: ALBUMIN 3.1 G/DL (3.4-5.0); ANION GAP 13 (8-16); BLOOD UREA NITROGEN 23 MG/DL (7-18); BUN/CREATININE RATIO 10.8 (5.4-32.0); CALCIUM 9.3 MG/DL (8.5-10.1); CHLORIDE 93 MMOL/L (99-107); CREATININE 2.12 MG/DL (0.60-1.10); GLUCOSE 107 MG/DL (70-104); SODIUM 127 MMOL/L (135-145); TOTAL CARBON DIOXIDE 20.9 MMOL/L (24-32); eGFR 31 ML/MIN
--- NOTE | 2019-12-01 06:35 | NUR ---
Problems reprioritized. Patient report given, questions answered & plan of care reviewed with Dale RN.
--- NOTE | 2019-12-01 06:57 | NUR ---
Patient in room IGOR 357. I have received report from Marleny RUSSO and had the opportunity to ask questions and assume patient care.
[2019-12-01 07:38] VITALS: BP 141/56
[2019-12-01] MEDS: K and/or MAG REPLACEMENT MC SCH ×2 (08:00→20:00)
[2019-12-01] MEDS: lisinopril 20mg tablet PO SCH ×2 (09:22→21:44)
[2019-12-01] MEDS: magnesium oxide 400mg tablet PO SCH ×3 (09:22→21:38)
[2019-12-01] MEDS: multivitamins, therapeutics tablet PO SCH (09:23)
[2019-12-01] MEDS: folic acid 1mg tablet PO SCH (09:23)
[2019-12-01] MEDS: allopurinol 100mg tablet PO SCH (09:23)
[2019-12-01] MEDS: QUEtiapine 25mg tablet PO SCH ×2 (09:24→21:39)
[2019-12-01] MEDS: lactobacillus rhamnosus 10,000 MMU CELLS/CAPSULE PO SCH ×2 (09:24→21:35)
[2019-12-01] MEDS: pantoprazole 40mg Tablet.DR PO SCH (09:25)
[2019-12-01] MEDS: thiamine 100mg tablet PO SCH (09:25)
[2019-12-01] MEDS: metoprolol succinate 25mg (24-HOUR) SR. Tablet PO SCH (09:25)
[2019-12-01] MEDS: lactulose 20gm/30ml cup PO SCH (09:26)
[2019-12-01] MEDS: heparin, porcine 5000 units/ml vial SQ SCH ×2 (09:40→21:51)
[2019-12-01 11:53] VITALS: BP 92/44
[2019-12-01] MEDS: normal saline 1000ml 1,000 ML IV SCH (12:21)
--- NOTE | 2019-12-01 18:35 | NUR ---
Problems reprioritized. Patient report given, questions answered & plan of care reviewed with Marleny RUSSO.
[2019-12-01] MEDS: chlordiazePOXIDE 25mg capsule PO SCH (21:36)
[2019-12-01 21:40] VITALS: BP 155/80
--- NOTE | 2019-12-01 22:02 | NUR ---
Called MD about patient being ALOC and not wanting a new PIV (d/t last one infiltrating). MD orderd 1 x ativan 1 MG po and then try to start an IV.
[2019-12-01] MEDS ORDERED: LORazepam 1 MG tablet PO ONE (22:05)
--- NOTE | 2019-12-01 23:30 | NUR ---
On the 4th attempt, new PIV 22 gauge started on RFA. NS is now infusing per MD orders.
[2019-12-02] MEDS: normal saline 1000ml 1,000 ML IV SCH ×2 (02:18→09:45)
[2019-12-02] MEDS: dextrose 5%-water 1,000 ML IV SCH ×2 (02:25→22:25)
--- NOTE | 2019-12-02 06:20 | NUR ---
Reported off to Daxa RUSSO
[2019-12-02] MEDS: lactobacillus rhamnosus 10,000 MMU CELLS/CAPSULE PO SCH ×2 (07:25→21:12)
[2019-12-02] MEDS: pantoprazole 40mg Tablet.DR PO SCH (07:25)
[2019-12-02] MEDS: magnesium oxide 400mg tablet PO SCH ×3 (07:25→21:15)
[2019-12-02] MEDS: metoprolol succinate 25mg (24-HOUR) SR. Tablet PO SCH (07:25)
[2019-12-02] MEDS: folic acid 1mg tablet PO SCH (07:25)
[2019-12-02] MEDS: multivitamins, therapeutics tablet PO SCH (07:25)
[2019-12-02] MEDS: allopurinol 100mg tablet PO SCH (07:25)
[2019-12-02] MEDS: thiamine 100mg tablet PO SCH (07:25)
[2019-12-02] MEDS: QUEtiapine 25mg tablet PO SCH ×2 (07:26→21:13)
[2019-12-02] MEDS: lisinopril 20mg tablet PO SCH ×2 (07:27→21:25)
[2019-12-02] MEDS: lactulose 20gm/30ml cup PO SCH ×2 (07:27→08:00)
[2019-12-02] MEDS: heparin, porcine 5000 units/ml vial SQ SCH ×2 (07:27→21:14)
[2019-12-02 07:30] VITALS: BP 122/63
[2019-12-02] MEDS: K and/or MAG REPLACEMENT MC SCH ×2 (08:00→20:00)
[2019-12-02 11:49] VITALS: BP 108/50
--- NOTE | 2019-12-02 18:25 | NUR ---
Patient in room IGOR 357. I have received report from Daxa RUSSO and had the opportunity to ask questions and assume patient care.
--- NOTE | 2019-12-02 18:29 | NUR ---
Problems reprioritized. Patient report given, questions answered & plan of care reviewed with RAFAELA OCAMPO.
[2019-12-02 19:00] VITALS: BP 134/61
[2019-12-02] MEDS: chlordiazePOXIDE 25mg capsule PO SCH (21:13)
[2019-12-02] MEDS: acetaminophen 325mg tablet PO PRN (21:33)
[2019-12-03] VITALS: BP 143/80
[2019-12-03] MEDS: normal saline 1000ml 1,000 ML IV SCH (05:39)
[2019-12-03 06:00] VITALS: BP 137/66
[2019-12-03 06:01] LABS: BASOPHILS % (AUTO) 0.6 % (0-1); EOSINOPHILS # (AUTO) 0.2 X10'3 (0-0.9); EOSINOPHILS % (AUTO) 3.1 % (0-6); HEMATOCRIT 35.3 % (42.0-52.0); LYMPHOCYTES # (AUTO) 2.5 X10'3 (1.1-4.8); LYMPHOCYTES % (AUTO) 38.8 % (21-51); MEAN CORPUSCULAR HEMOGLOBIN 36.3 PG (27.0-31.0); MEAN CORPUSCULAR VOLUME 106.7 FL (78-98); MEAN PLATELET VOLUME 8.4 FL (7.4-10.4); MONOCYTES # (AUTO) 0.8 X10'3 (0-0.9); MONOCYTES % (AUTO) 12.9 % (2-12); NEUTROPHILS # (AUTO) 2.8 X10'3 (1.8-7.7); NEUTROPHILS % (AUTO) 44.6 % (42-75); PLATELET COUNT 259 X10'3 (140-440); RED BLOOD COUNT 3.31 X10'6 (4.70-6.10); RED CELL DISTRIBUTION WIDTH 13.3 % (11.5-14.5); WHITE BLOOD COUNT 6.3 X10'3 (4.5-11.0)
--- NOTE | 2019-12-03 06:07 | NUR ---
Problems reprioritized. Patient report given, questions answered & plan of care reviewed with Anita RUSSO.
[2019-12-03 06:11] LABS: ANION GAP 6 (8-16); BLOOD UREA NITROGEN 16 MG/DL (7-18); CALCIUM 9.5 MG/DL (8.5-10.1); CHLORIDE 102 MMOL/L (99-107); CREATININE 1.33 MG/DL (0.60-1.10); GLUCOSE 82 MG/DL (70-104); POTASSIUM 4.5 MMOL/L (3.5-5.1); SODIUM 134 MMOL/L (135-145); TOTAL CARBON DIOXIDE 26.3 MMOL/L (24-32); eGFR 54 ML/MIN
--- NOTE | 2019-12-03 06:59 | NUR ---
Patient in room IGOR 357. I have received report from Marleny RUSSO and had the opportunity to ask questions and assume patient care.
[2019-12-03] MEDS: folic acid 1mg tablet PO SCH (07:49)
[2019-12-03] MEDS: QUEtiapine 25mg tablet PO SCH ×2 (07:49→19:58)
[2019-12-03] MEDS: lactulose 20gm/30ml cup PO SCH (07:49)
[2019-12-03] MEDS: magnesium oxide 400mg tablet PO SCH ×3 (07:49→19:57)
[2019-12-03] MEDS: allopurinol 100mg tablet PO SCH (07:49)
[2019-12-03] MEDS: thiamine 100mg tablet PO SCH (07:49)
[2019-12-03] MEDS: pantoprazole 40mg Tablet.DR PO SCH (07:49)
[2019-12-03] MEDS: lactobacillus rhamnosus 10,000 MMU CELLS/CAPSULE PO SCH ×2 (07:49→19:57)
[2019-12-03] MEDS: multivitamins, therapeutics tablet PO SCH (07:50)
[2019-12-03] MEDS: heparin, porcine 5000 units/ml vial SQ SCH ×2 (07:51→20:06)
[2019-12-03] MEDS: metoprolol succinate 25mg (24-HOUR) SR. Tablet PO SCH (07:51)
[2019-12-03] MEDS: lisinopril 20mg tablet PO SCH ×2 (07:52→19:58)
[2019-12-03] MEDS: K and/or MAG REPLACEMENT MC SCH ×2 (08:00→20:00)
[2019-12-03 11:00] VITALS: BP 137/76
[2019-12-03] MEDS: dextrose 5%-normal saline 1,000 ML IV SCH (13:46)
--- NOTE | 2019-12-03 18:09 | NUR ---
Problems reprioritized. Patient report given, questions answered & plan of care reviewed with Shonna RUSSO.
[2019-12-03 19:00] VITALS: BP 143/64
[2019-12-04] VITALS: BP 142/92
--- NOTE | 2019-12-04 06:23 | NUR ---
RECEIVED REPORT FROM RAFAELA MONTOYA
[2019-12-04 08:00] VITALS: BP 154/85
[2019-12-04] MEDS: K and/or MAG REPLACEMENT MC SCH ×2 (08:00→19:09)
[2019-12-04] MEDS: lactobacillus rhamnosus 10,000 MMU CELLS/CAPSULE PO SCH ×2 (08:27→19:06)
[2019-12-04] MEDS: lactulose 20gm/30ml cup PO SCH (08:27)
[2019-12-04] MEDS: magnesium oxide 400mg tablet PO SCH ×3 (08:29→19:08)
[2019-12-04] MEDS: folic acid 1mg tablet PO SCH (08:29)
[2019-12-04] MEDS: multivitamins, therapeutics tablet PO SCH (08:30)
[2019-12-04] MEDS: pantoprazole 40mg Tablet.DR PO SCH (08:30)
[2019-12-04] MEDS: thiamine 100mg tablet PO SCH (08:31)
[2019-12-04] MEDS: allopurinol 100mg tablet PO SCH (08:32)
[2019-12-04] MEDS: metoprolol succinate 25mg (24-HOUR) SR. Tablet PO SCH (08:34)
[2019-12-04] MEDS: heparin, porcine 5000 units/ml vial SQ SCH ×2 (08:35→19:08)
[2019-12-04] MEDS: dextrose 5%-normal saline 1,000 ML IV SCH (08:40)
[2019-12-04] MEDS: lisinopril 20mg tablet PO SCH ×2 (08:40→19:07)
--- NOTE | 2019-12-04 08:41 | NUR ---
scanner not scanning meds in to [facility] at this time, checked all medication prior to admin
--- NOTE | 2019-12-04 12:17 | NUR ---
Reassessment: Pt with low Rakesh of 12. Per physical assessment pt with bilat foot 1+ edema and skin is intact. Pt continues on heart healthy diet however PO intake has declined with documented average 0-25% with refusal of some meals over the last three days. Pt with delirium tremors with Wernicke encephalopathy per MD notes. Pt documented to be confused, A/O x 1, agitated, and resistive to care. Corpak likely not appropriate at this time given mentation. Pt with a sitter at bedside and receiving moderate assistance with meals. D/w dietary to send cottage cheese with lunch and yogurt with dinner for easy to feed food items. LBM 12/03. Pt receiving routine Lactulose. Will continue to follow closely and make recommendations as appropriate. Recommendations: 1) Continue heart healthy diet; consider liberalization to regular in view of recent poor PO intake 2) Encourage PO intake; assist with meals 3) Ensure pudding q breakfast, cottage cheese q lunch, yogurt q dinner 4) Continue routine Thiamine, Folic acid, and MVI given EtOH hx and elevated MCV 5) Routine bowel care 6) Wt per rx Addendum: 12/04/19 at [address] Amended: Links added.
[2019-12-04 18:00] VITALS: BP 140/56
--- NOTE | 2019-12-04 18:09 | NUR ---
gave report to joao fernandez
[2019-12-04] MEDS: QUEtiapine 25mg tablet PO SCH (19:06)
[2019-12-04] MEDS: LORazepam 0.5 MG tablet PO PRN (23:31)
[2019-12-05] MEDS: dextrose 5%-normal saline 1,000 ML IV SCH (03:43)
--- NOTE | 2019-12-05 06:00 | NUR ---
Patient in room IGOR 357. I have received report from RAFAELA Chavez and had the opportunity to ask questions and assume patient care.
[2019-12-05 07:00] VITALS: BP 166/82
[2019-12-05] MEDS: lactulose 20gm/30ml cup PO SCH (07:51)
[2019-12-05] MEDS: heparin, porcine 5000 units/ml vial SQ SCH ×2 (07:52→19:56)
[2019-12-05] MEDS: pantoprazole 40mg Tablet.DR PO SCH (07:52)
[2019-12-05] MEDS: LORazepam 0.5 MG tablet PO PRN ×2 (07:53→17:39)
[2019-12-05] MEDS: allopurinol 100mg tablet PO SCH (07:53)
[2019-12-05] MEDS: folic acid 1mg tablet PO SCH (07:53)
[2019-12-05] MEDS: lactobacillus rhamnosus 10,000 MMU CELLS/CAPSULE PO SCH ×2 (07:53→19:56)
[2019-12-05] MEDS: magnesium oxide 400mg tablet PO SCH ×3 (07:54→19:56)
[2019-12-05] MEDS: metoprolol succinate 25mg (24-HOUR) SR. Tablet PO SCH (07:54)
[2019-12-05] MEDS: multivitamins, therapeutics tablet PO SCH (07:54)
[2019-12-05] MEDS: lisinopril 20mg tablet PO SCH ×2 (07:54→19:56)
[2019-12-05] MEDS: thiamine 100mg tablet PO SCH (07:54)
[2019-12-05] MEDS: K and/or MAG REPLACEMENT MC SCH ×2 (08:00→20:00)
[2019-12-05] MEDS ORDERED: LORazepam 2 mg/ml vial IV ONE (10:50)
[2019-12-05 11:00] VITALS: BP 138/90
[2019-12-05 18:00] VITALS: BP 137/59
--- NOTE | 2019-12-05 18:39 | NUR ---
Problems reprioritized. Patient report given, questions answered & plan of care reviewed with Perri Lundberg RN.
--- NOTE | 2019-12-05 18:45 | NUR ---
Patient in room U 3014. I have received report from RAFAELA Mendoza and had the opportunity to ask questions and assume patient care. Addendum: 12/05/19 at 1846 by Simran Schuler RN Amended: Links added.
[2019-12-05] MEDS: QUEtiapine 25mg tablet PO SCH (19:56)
[2019-12-05 22:00] VITALS: BP 151/41
[2019-12-06] MEDS: dextrose 5%-normal saline 1,000 ML IV SCH ×2 (00:35→20:35)
[2019-12-06 02:00] VITALS: BP 114/37
[2019-12-06 06:00] VITALS: BP 131/38
--- NOTE | 2019-12-06 06:17 | NUR ---
Problems reprioritized. Patient report given, questions answered & plan of care reviewed with RAFAELA Bello.
--- NOTE | 2019-12-06 06:33 | NUR ---
Patient in room PCU 3014. I have received report from RAFAELA Rayo and had the opportunity to ask questions and assume patient care.
[2019-12-06] MEDS: pantoprazole 40mg Tablet.DR PO SCH (08:00)
[2019-12-06] MEDS: K and/or MAG REPLACEMENT MC SCH ×2 (08:00→20:00)
[2019-12-06] MEDS: lisinopril 20mg tablet PO SCH ×2 (08:59→19:03)
[2019-12-06] MEDS: metoprolol succinate 25mg (24-HOUR) SR. Tablet PO SCH (08:59)
[2019-12-06] MEDS: lactobacillus rhamnosus 10,000 MMU CELLS/CAPSULE PO SCH ×2 (09:00→19:03)
[2019-12-06] MEDS: multivitamins, therapeutics tablet PO SCH (09:00)
[2019-12-06] MEDS: folic acid 1mg tablet PO SCH (09:00)
[2019-12-06] MEDS: allopurinol 100mg tablet PO SCH (09:00)
[2019-12-06] MEDS: magnesium oxide 400mg tablet PO SCH ×3 (09:00→19:03)
[2019-12-06] MEDS: thiamine 100mg tablet PO SCH (09:00)
[2019-12-06] MEDS: lactulose 20gm/30ml cup PO SCH (09:01)
[2019-12-06] MEDS: heparin, porcine 5000 units/ml vial SQ SCH ×2 (09:08→19:05)
--- NOTE | 2019-12-06 09:50 | NUR ---
PAGER ID: [phone] MESSAGE: [id number] Hoang. spitting at people and room. code strong called. pt placed in wrist restraints and face mask. Citlali webb
--- NOTE | 2019-12-06 09:51 | NUR ---
housekeeping attendant informed of pt behavior.
[2019-12-06 11:00] VITALS: BP 119/71
[2019-12-06] MEDS: LORazepam 0.5 MG tablet PO PRN ×2 (13:26→23:07)
[2019-12-06 15:00] VITALS: BP 154/67
[2019-12-06 18:00] VITALS: BP 152/81
--- NOTE | 2019-12-06 18:23 | NUR ---
Problems reprioritized. Patient report given, questions answered & plan of care reviewed with RAFAELA Vo.
--- NOTE | 2019-12-06 18:23 | NUR ---
Patient in room PCU 3014. I have received report from Eugenia RUSSO and had the opportunity to ask questions and assume patient care.
[2019-12-06] MEDS: QUEtiapine 25mg tablet PO SCH (19:03)
[2019-12-06 22:00] VITALS: BP 128/71
[2019-12-07] VITALS (7 sets, daily range): BP systolic 101–153; BP diastolic 65–93
[2019-12-07] MEDS: dextrose 5%-normal saline 1,000 ML IV SCH (03:52)
[2019-12-07] MEDS: acetaminophen 325mg tablet PO PRN (03:52)
--- NOTE | 2019-12-07 06:23 | NUR ---
Problems reprioritized. Patient report given, questions answered & plan of care reviewed with Anita RUSSO and Emily RN.
--- NOTE | 2019-12-07 06:30 | NUR ---
Patient in room PCU 3014. I have received report from Gilda RUSSO and had the opportunity to ask questions and assume patient care.
[2019-12-07] MEDS: lactulose 20gm/30ml cup PO SCH (07:56)
[2019-12-07] MEDS: heparin, porcine 5000 units/ml vial SQ SCH ×2 (07:57→21:39)
[2019-12-07] MEDS: lactobacillus rhamnosus 10,000 MMU CELLS/CAPSULE PO SCH ×2 (07:57→21:41)
[2019-12-07] MEDS: allopurinol 100mg tablet PO SCH (07:57)
[2019-12-07] MEDS: magnesium oxide 400mg tablet PO SCH ×3 (07:57→21:40)
[2019-12-07] MEDS: pantoprazole 40mg Tablet.DR PO SCH (07:57)
[2019-12-07] MEDS: folic acid 1mg tablet PO SCH (07:57)
[2019-12-07] MEDS: multivitamins, therapeutics tablet PO SCH (07:58)
[2019-12-07] MEDS: metoprolol succinate 25mg (24-HOUR) SR. Tablet PO SCH (07:58)
[2019-12-07] MEDS: lisinopril 20mg tablet PO SCH ×2 (07:58→21:40)
[2019-12-07] MEDS: K and/or MAG REPLACEMENT MC SCH ×2 (07:58→20:00)
[2019-12-07] MEDS: thiamine 100mg tablet PO SCH (07:58)
--- NOTE | 2019-12-07 12:07 | NUR ---
Dr. Eisenberg ordered CBC and CMP for tomorrow 12/07 at 0300.
--- NOTE | 2019-12-07 13:14 | NUR ---
Reassessment: Pt PO 25% avg meals continues to fluctuate up to 50% at times w/ ALOC AOx2 DX Wernicke's encephalopathy not meeting needs. ISRAEL campos MD regarding liberalization to regular diet given poor PO hx. Receiving additional protein sources w/ each meal; see recs below. LBM 12/04. Will continue to monitor. Recommendations: 1) Continue heart healthy diet; consider liberalization to regular in view of recent poor PO intake 2) Encourage PO intake; assist with meals 3) Ensure pudding q breakfast, cottage cheese q lunch, yogurt q dinner 4) Continue routine Thiamine, Folic acid, and MVI given EtOH hx and elevated MCV 5) Routine bowel care 6) scaled wts Addendum: 12/07/19 at [address] Amended: Links added.
[2019-12-07] MEDS: LORazepam 0.5 MG tablet PO PRN ×2 (15:37→21:39)
--- NOTE | 2019-12-07 18:00 | NUR ---
Patient in room PCU 3014. I have received report from MELISSA RUSSO and had the opportunity to ask questions and assume patient care.
--- NOTE | 2019-12-07 18:30 | NUR ---
Problems reprioritized. Patient report given, questions answered & plan of care reviewed with RAFAELA Tanner.
[2019-12-07] MEDS: QUEtiapine 25mg tablet PO SCH (21:40)
[2019-12-07] MEDS ORDERED: haloperidol lactate 5mg/ml inj IM ONE (22:50)
[2019-12-08 02:00] VITALS: BP 119/41
[2019-12-08 05:46] LABS: ALANINE AMINOTRANSFERASE 50 U/L (12-78); ALBUMIN 2.8 G/DL (3.4-5.0); ALBUMIN/GLOBULIN RATIO 0.8 (1.1-1.5); ALKALINE PHOSPHATASE 62 IU/L (46-116); ANION GAP 9 (8-16); ASPARTATE AMINO TRANSFERASE 69 U/L (10-37); BILIRUBIN,TOTAL 0.4 MG/DL (0.1-1.0); BLOOD UREA NITROGEN 9 MG/DL (7-18); BUN/CREATININE RATIO 7.5 (5.4-32.0); CALCIUM 9.1 MG/DL (8.5-10.1); CHLORIDE 105 MMOL/L (99-107); GLUCOSE 94 MG/DL (70-104); POTASSIUM 3.5 MMOL/L (3.5-5.1); SODIUM 140 MMOL/L (135-145); TOTAL CARBON DIOXIDE 26.2 MMOL/L (24-32); TOTAL PROTEIN 6.3 G/DL (6.4-8.2); eGFR 61 ML/MIN
[2019-12-08] MEDS: dextrose 5%-normal saline 1,000 ML IV SCH (05:57)
[2019-12-08 06:00] LABS: BASOPHILS # (AUTO) 0.1 X10'3 (0-0.2); BASOPHILS % (AUTO) 1.2 % (0-1); EOSINOPHILS # (AUTO) 0.1 X10'3 (0-0.9); EOSINOPHILS % (AUTO) 1.9 % (0-6); HEMATOCRIT 31.6 % (42.0-52.0); HEMOGLOBIN 10.8 g/dl (14.0-17.9); LYMPHOCYTES % (AUTO) 43.6 % (21-51); MEAN CORPUSCULAR HEMOGLOBIN 36.4 PG (27.0-31.0); MEAN CORPUSCULAR HGB CONC 34.2 g/dL (33.0-36.5); MEAN CORPUSCULAR VOLUME 106.3 FL (78-98); MEAN PLATELET VOLUME 8.9 FL (7.4-10.4); MONOCYTES # (AUTO) 0.7 X10'3 (0-0.9); MONOCYTES % (AUTO) 10.8 % (2-12); NEUTROPHILS # (AUTO) 2.9 X10'3 (1.8-7.7); NEUTROPHILS % (AUTO) 42.5 % (42-75); PLATELET COUNT 203 X10'3 (140-440); RED BLOOD COUNT 2.97 X10'6 (4.70-6.10); RED CELL DISTRIBUTION WIDTH 13.3 % (11.5-14.5); WHITE BLOOD COUNT 6.8 X10'3 (4.5-11.0)
--- NOTE | 2019-12-08 06:08 | NUR ---
Problems reprioritized. Patient report given, questions answered & plan of care reviewed with Anita RUSSO.
--- NOTE | 2019-12-08 06:24 | NUR ---
Patient in room PCU 3014. I have received report from Misty RN, and had the opportunity to ask questions and assume patient care.
[2019-12-08 07:05] VITALS: BP 100/52
[2019-12-08] MEDS: lactulose 20gm/30ml cup PO SCH ×2 (07:12→10:54)
[2019-12-08] MEDS: heparin, porcine 5000 units/ml vial SQ SCH ×2 (07:13→21:54)
[2019-12-08] MEDS: pantoprazole 40mg Tablet.DR PO SCH ×2 (07:13→10:54)
[2019-12-08] MEDS: magnesium oxide 400mg tablet PO SCH ×4 (07:13→21:53)
[2019-12-08] MEDS: multivitamins, therapeutics tablet PO SCH (07:13)
[2019-12-08] MEDS: folic acid 1mg tablet PO SCH ×2 (07:13→10:54)
[2019-12-08] MEDS: lisinopril 20mg tablet PO SCH ×3 (07:14→21:52)
[2019-12-08] MEDS: K and/or MAG REPLACEMENT MC SCH ×2 (07:15→20:00)
[2019-12-08] MEDS: allopurinol 100mg tablet PO SCH ×2 (07:15→10:54)
[2019-12-08] MEDS: lactobacillus rhamnosus 10,000 MMU CELLS/CAPSULE PO SCH ×3 (07:15→21:53)
[2019-12-08] MEDS: metoprolol succinate 25mg (24-HOUR) SR. Tablet PO SCH ×2 (07:15→10:53)
[2019-12-08] MEDS: thiamine 100mg tablet PO SCH ×2 (07:15→10:54)
--- NOTE | 2019-12-08 10:00 | NUR ---
Received report from RAFAELA Howard
--- NOTE | 2019-12-08 10:20 | NUR ---
Problems reprioritized. Patient report given, questions answered & plan of care reviewed with Kelly RUSSO.
[2019-12-08 11:00] VITALS: BP 164/73
[2019-12-08] MEDS: LORazepam 0.5 MG tablet PO PRN ×2 (14:54→21:52)
[2019-12-08 15:00] VITALS: BP 121/68
[2019-12-08 18:00] VITALS: BP 168/102
--- NOTE | 2019-12-08 18:20 | NUR ---
Patient in room PCU 3014A. I have received report from RAFAELA Mendoza and had the opportunity to ask questions and assume patient care.
--- NOTE | 2019-12-08 18:44 | NUR ---
Problems reprioritized. Patient report given, questions answered & plan of care reviewed with RAFAELA Morgan.
[2019-12-08] MEDS: QUEtiapine 25mg tablet PO SCH (21:53)
[2019-12-08 22:00] VITALS: BP 139/85
[2019-12-09] VITALS (7 sets, daily range): BP systolic 134–172; BP diastolic 55–84
[2019-12-09] MEDS: dextrose 5%-normal saline 1,000 ML IV SCH ×2 (01:38→21:25)
--- NOTE | 2019-12-09 02:05 | NUR ---
Patient's blood pressure at 0200 was 172/84. I informed Dr Shay; no new orders received
[2019-12-09 05:20] LABS: BASOPHILS # (AUTO) 0.1 X10'3 (0-0.2); BASOPHILS % (AUTO) 0.6 % (0-1); EOSINOPHILS # (AUTO) 0.1 X10'3 (0-0.9); EOSINOPHILS % (AUTO) 1.3 % (0-6); HEMATOCRIT 33.8 % (42.0-52.0); HEMOGLOBIN 11.5 g/dl (14.0-17.9); LYMPHOCYTES # (AUTO) 2.2 X10'3 (1.1-4.8); LYMPHOCYTES % (AUTO) 24.4 % (21-51); MEAN CORPUSCULAR HEMOGLOBIN 35.7 PG (27.0-31.0); MEAN CORPUSCULAR HGB CONC 33.9 g/dL (33.0-36.5); MEAN PLATELET VOLUME 8.9 FL (7.4-10.4); MONOCYTES # (AUTO) 0.9 X10'3 (0-0.9); NEUTROPHILS # (AUTO) 5.8 X10'3 (1.8-7.7); NEUTROPHILS % (AUTO) 63.7 % (42-75); PLATELET COUNT 192 X10'3 (140-440); RED BLOOD COUNT 3.22 X10'6 (4.70-6.10); RED CELL DISTRIBUTION WIDTH 13.2 % (11.5-14.5); WHITE BLOOD COUNT 9.1 X10'3 (4.5-11.0)
[2019-12-09 05:31] LABS: ALBUMIN 2.8 G/DL (3.4-5.0); ANION GAP 6 (8-16); BLOOD UREA NITROGEN 6 MG/DL (7-18); BUN/CREATININE RATIO 5.2 (5.4-32.0); CALCIUM 8.9 MG/DL (8.5-10.1); CHLORIDE 105 MMOL/L (99-107); CREATININE 1.15 MG/DL (0.60-1.10); GLUCOSE 96 MG/DL (70-104); POTASSIUM 3.5 MMOL/L (3.5-5.1); SODIUM 139 MMOL/L (135-145); TOTAL CARBON DIOXIDE 27.6 MMOL/L (24-32); eGFR 64 ML/MIN
--- NOTE | 2019-12-09 06:15 | NUR ---
Problems reprioritized. Patient report given, questions answered & plan of care reviewed with RAFAELA Howard.
--- NOTE | 2019-12-09 06:49 | NUR ---
Patient in room PCU 3014. I have received report from Eddie RUSSO and had the opportunity to ask questions and assume patient care.
[2019-12-09] MEDS: lactulose 20gm/30ml cup PO SCH (07:56)
[2019-12-09] MEDS: heparin, porcine 5000 units/ml vial SQ SCH ×2 (07:57→20:54)
[2019-12-09] MEDS: lactobacillus rhamnosus 10,000 MMU CELLS/CAPSULE PO SCH ×2 (07:57→20:54)
[2019-12-09] MEDS: thiamine 100mg tablet PO SCH (07:58)
[2019-12-09] MEDS: pantoprazole 40mg Tablet.DR PO SCH (07:58)
[2019-12-09] MEDS: magnesium oxide 400mg tablet PO SCH ×3 (07:58→20:55)
[2019-12-09] MEDS: allopurinol 100mg tablet PO SCH (07:58)
[2019-12-09] MEDS: metoprolol succinate 25mg (24-HOUR) SR. Tablet PO SCH (07:58)
[2019-12-09] MEDS: lisinopril 20mg tablet PO SCH ×2 (07:58→20:55)
[2019-12-09] MEDS: multivitamins, therapeutics tablet PO SCH (07:58)
[2019-12-09] MEDS: folic acid 1mg tablet PO SCH (07:58)
[2019-12-09] MEDS: K and/or MAG REPLACEMENT MC SCH ×2 (07:59→20:00)
[2019-12-09] MEDS: LORazepam 0.5 MG tablet PO PRN (13:10)
--- NOTE | 2019-12-09 18:30 | NUR ---
Patient in room PCU 3014. I have received report from Anita RUSSO and had the opportunity to ask questions and assume patient care.
--- NOTE | 2019-12-09 18:39 | NUR ---
Problems reprioritized. Patient report given, questions answered & plan of care reviewed with RAFAELA Myrick.
--- NOTE | 2019-12-09 18:41 | NUR ---
Orientee documentation: I have reviewed and agree with all interventions, assessments performed and documented by RAFAELA Diaz .
[2019-12-09] MEDS: risperiDONE 0.5mg tablet PO SCH (20:55)
[2019-12-10 02:00] VITALS: BP 148/67
[2019-12-10 05:21] LABS: BASOPHILS # (AUTO) 0.1 X10'3 (0-0.2); BASOPHILS % (AUTO) 0.8 % (0-1); EOSINOPHILS # (AUTO) 0.1 X10'3 (0-0.9); EOSINOPHILS % (AUTO) 1.7 % (0-6); HEMATOCRIT 32.6 % (42.0-52.0); HEMOGLOBIN 11.2 g/dl (14.0-17.9); LYMPHOCYTES # (AUTO) 2.4 X10'3 (1.1-4.8); LYMPHOCYTES % (AUTO) 33.4 % (21-51); MEAN CORPUSCULAR HEMOGLOBIN 35.8 PG (27.0-31.0); MEAN CORPUSCULAR HGB CONC 34.3 g/dL (33.0-36.5); MEAN CORPUSCULAR VOLUME 104.5 FL (78-98); MEAN PLATELET VOLUME 9.2 FL (7.4-10.4); MONOCYTES # (AUTO) 0.7 X10'3 (0-0.9); NEUTROPHILS % (AUTO) 54.1 % (42-75); PLATELET COUNT 190 X10'3 (140-440); RED BLOOD COUNT 3.12 X10'6 (4.70-6.10); RED CELL DISTRIBUTION WIDTH 13.2 % (11.5-14.5); WHITE BLOOD COUNT 7.3 X10'3 (4.5-11.0)
[2019-12-10 05:36] LABS: ALANINE AMINOTRANSFERASE 47 U/L (12-78); ALBUMIN 2.8 G/DL (3.4-5.0); ALBUMIN/GLOBULIN RATIO 0.8 (1.1-1.5); ALKALINE PHOSPHATASE 60 IU/L (46-116); ANION GAP 5 (8-16); ASPARTATE AMINO TRANSFERASE 66 U/L (10-37); BILIRUBIN,TOTAL 0.5 MG/DL (0.1-1.0); BLOOD UREA NITROGEN 7 MG/DL (7-18); BUN/CREATININE RATIO 6.5 (5.4-32.0); CALCIUM 8.9 MG/DL (8.5-10.1); CHLORIDE 103 MMOL/L (99-107); CREATININE 1.08 MG/DL (0.60-1.10); GLUCOSE 101 MG/DL (70-104); POTASSIUM 3.2 MMOL/L (3.5-5.1); SODIUM 135 MMOL/L (135-145); TOTAL PROTEIN 6.4 G/DL (6.4-8.2); eGFR 68 ML/MIN
[2019-12-10 06:00] VITALS: BP 135/50
--- NOTE | 2019-12-10 06:17 | NUR ---
Problems reprioritized. Patient report given, questions answered & plan of care reviewed with Randa RUSSO and Viktoriya RUSSO.
--- NOTE | 2019-12-10 06:39 | NUR ---
Patient in room PCU 3014. I have received report from Elen RUSSO and had the opportunity to ask questions and assume patient care.
--- NOTE | 2019-12-10 06:41 | NUR ---
Patient in room PCU 3014. I have received report from RAFAELA Myrick and had the opportunity to ask questions and assume patient care.
[2019-12-10] MEDS: lactulose 20gm/30ml cup PO SCH (08:58)
[2019-12-10] MEDS: heparin, porcine 5000 units/ml vial SQ SCH ×2 (09:00→20:08)
[2019-12-10] MEDS: folic acid 1mg tablet PO SCH (09:02)
[2019-12-10] MEDS: magnesium oxide 400mg tablet PO SCH ×3 (09:02→20:06)
[2019-12-10] MEDS: pantoprazole 40mg Tablet.DR PO SCH (09:02)
[2019-12-10] MEDS: metoprolol succinate 25mg (24-HOUR) SR. Tablet PO SCH (09:03)
[2019-12-10] MEDS: lisinopril 20mg tablet PO SCH ×2 (09:03→20:07)
[2019-12-10] MEDS: multivitamins, therapeutics tablet PO SCH (09:03)
[2019-12-10] MEDS: allopurinol 100mg tablet PO SCH (09:04)
[2019-12-10] MEDS: thiamine 100mg tablet PO SCH (09:04)
[2019-12-10] MEDS: lactobacillus rhamnosus 10,000 MMU CELLS/CAPSULE PO SCH ×2 (09:04→20:06)
[2019-12-10] MEDS ORDERED: magnesium 2GM in 50ml NS 50 ML IV PRN (10:30)
[2019-12-10] MEDS ORDERED: magnesium 4gm in 100ml NS 100 ML IV PRN (10:30)
[2019-12-10] MEDS ORDERED: magnesium Cl slow-release 64mg tablet PO PRN (10:30)
[2019-12-10] MEDS ORDERED: potassium Cl 20 mEq SR tablet PO PRN (10:30)
[2019-12-10] MEDS ORDERED: potassium CL 10mEq/100ml bag 100 ML IV PRN ×2 (10:30)
--- NOTE | 2019-12-10 10:39 | NUR ---
Reassessment: Patient continues with poor PO note meeting needs, average PO intake is 25-49% of heart healthy meals. Poor PO likely r/t confusion and A/O x1 d/t Wernicke's encephalopathy dx. Patient has feeder, has restraints d/t pulling at lines and not following safe directions per bedside RN. In view of needing feeder recommend chop all diet for feeding, d/w dietary. ISRAEL [email or web address] regarding liberalization to regular diet given poor PO hx. Receiving additional protein sources w/ each meal; see recs below. Last BM is a smear on 12/08, BM prior to that on 11/27. Patient is likely constipated r/t inactivity and however is receiving daily lactulose, ammonia is WNL. Will continue to monitor. Recommendations: 1) Continue heart healthy diet; consider liberalization to regular in view of recent poor PO intake 2) Encourage PO intake, send chop all; assist with meals 3) Ensure pudding q breakfast, cottage cheese q lunch, yogurt q dinner 4) Continue routine Thiamine, Folic acid, and MVI given EtOH hx and elevated MCV 5) Routine bowel care (receiving lactulose) 6) scaled wts Addendum: 12/10/19 at [address] Amended: Links added.
[2019-12-10 11:00] VITALS: BP 165/89
[2019-12-10] MEDS: potassium Cl 20 mEq SR tablet PO PRN ×2 (12:28→17:17)
[2019-12-10 15:00] VITALS: BP 161/75
[2019-12-10 18:00] VITALS: BP 160/78
--- NOTE | 2019-12-10 18:23 | NUR ---
Problems reprioritized. Patient report given, questions answered & plan of care reviewed with Elen.
--- NOTE | 2019-12-10 18:24 | NUR ---
Problems reprioritized. Patient report given, questions answered & plan of care reviewed with RAFAELA Myrick. All patient needs met at this time.
--- NOTE | 2019-12-10 18:24 | NUR ---
[place] Medication Administration: For this medication-pass time frame, all medication were reviewed, dispensed, administered and documented per hospital policy by RAFAELA Lang.
--- NOTE | 2019-12-10 18:24 | NUR ---
Orientee documentation: I have reviewed and agree with all interventions, assessments performed and documented by RAFAELA Lang
--- NOTE | 2019-12-10 18:30 | NUR ---
Patient in room PCU 3014. I have received report from Randa RUSSO and Precious RUSSO and had the opportunity to ask questions and assume patient care.
[2019-12-10] MEDS: K and/or MAG REPLACEMENT MC SCH (20:00)
[2019-12-10] MEDS: risperiDONE 0.5mg tablet PO SCH (20:07)
[2019-12-10 22:00] VITALS: BP 156/82
[2019-12-11] MEDS: potassium Cl 20 mEq SR tablet PO PRN (00:23)
[2019-12-11 02:00] VITALS: BP 169/80
[2019-12-11 06:00] VITALS: BP 169/83
--- NOTE | 2019-12-11 06:07 | NUR ---
Problems reprioritized. Patient report given, questions answered & plan of care reviewed with Bhargav RUSSO.
--- NOTE | 2019-12-11 06:10 | NUR ---
Patient in room PCU 3014. I have received report from Elen RUSSO and had the opportunity to ask questions and assume patient care.
--- NOTE | 2019-12-11 06:10 | NUR ---
Patient in room PCU 3014. I have received report from Margo RUSSO, and had the opportunity to ask questions and assume patient care.
--- NOTE | 2019-12-11 07:22 | NUR ---
PAGER ID: [phone] MESSAGE: Re: Sukhdeep Bolton. U [id number]. He does not have CBC, BMP ordered for this morning. Would you also like to re-order for soft restraints? Gilda U #[id number]
[2019-12-11] MEDS: K and/or MAG REPLACEMENT MC SCH ×2 (08:00→20:00)
[2019-12-11] MEDS: lactobacillus rhamnosus 10,000 MMU CELLS/CAPSULE PO SCH ×2 (08:33→21:04)
[2019-12-11] MEDS: metoprolol succinate 25mg (24-HOUR) SR. Tablet PO SCH (08:33)
[2019-12-11] MEDS: folic acid 1mg tablet PO SCH (08:36)
[2019-12-11] MEDS: lisinopril 20mg tablet PO SCH ×2 (08:36→21:04)
[2019-12-11] MEDS: magnesium oxide 400mg tablet PO SCH ×3 (08:37→21:02)
[2019-12-11] MEDS: pantoprazole 40mg Tablet.DR PO SCH (08:38)
[2019-12-11] MEDS: multivitamins, therapeutics tablet PO SCH (08:39)
[2019-12-11] MEDS: thiamine 100mg tablet PO SCH (08:39)
[2019-12-11] MEDS: allopurinol 100mg tablet PO SCH (08:41)
[2019-12-11] MEDS: lactulose 20gm/30ml cup PO SCH (08:43)
[2019-12-11] MEDS: heparin, porcine 5000 units/ml vial SQ SCH ×2 (08:50→20:59)
[2019-12-11 11:00] VITALS: BP 133/67
[2019-12-11] MEDS: dextrose 5%-normal saline 1,000 ML IV SCH ×2 (14:40→20:35)
[2019-12-11 15:00] VITALS: BP 148/75
--- NOTE | 2019-12-11 16:34 | NUR ---
Reassessment: BSS evaluation performed by speech therapist on 12/09, reports patient does have difficulty chewing, slow chewing solids, needing feeder for safety d/t cognition and recommends mechanical soft foods grind all and thin liquids. Patient's PO intake has improved slightly since to average of 50-75% for two days from 0-25% prior. Poor PO likely r/t confusion and A/O x1 d/t Wernicke's encephalopathy dx and possible constipation. Receiving additional protein sources w/ each meal; see recs below. Last BM is a smear on 12/08, BM prior to that on 11/27. Patient is likely constipated r/t inactivity and however is receiving daily lactulose, ammonia is WNL. Will continue to monitor. Recommendations: 1) Continue heart healthy, texture mechanical soft grind all per speech therapy recommendations. 2) Encourage PO intake; assist with meals 3) Ensure pudding q breakfast, cottage cheese q lunch, yogurt q dinner 4) Continue routine Thiamine, Folic acid, and MVI given EtOH hx and elevated MCV 5) Routine bowel care (receiving lactulose) 6) scaled wts Addendum: 12/11/19 at [address] Amended: Links added.
--- NOTE | 2019-12-11 18:00 | NUR ---
I have reviewed my orientee's, Gilda Lowery RN, charting and I agree with it.
--- NOTE | 2019-12-11 18:25 | NUR ---
Problems reprioritized. Patient report given, questions answered & plan of care reviewed with Rissa Kwok RN.
--- NOTE | 2019-12-11 18:25 | NUR ---
Problems reprioritized. Patient report given, questions answered & plan of care reviewed with RAFAELA Srivastava.
--- NOTE | 2019-12-11 18:30 | NUR ---
Patient in room PCU 3014. I have received report from KIKE RN AND HARPAL RN and had the opportunity to ask questions and assume patient care.
[2019-12-11 19:00] VITALS: BP 158/61
[2019-12-11] MEDS: risperiDONE 0.5mg tablet PO SCH (21:02)
[2019-12-11 23:00] VITALS: BP 157/59
[2019-12-12] VITALS (7 sets, daily range): BP systolic 137–186; BP diastolic 56–97
[2019-12-12 05:56] LABS: BASOPHILS # (AUTO) 0.1 X10'3 (0-0.2); BASOPHILS % (AUTO) 0.7 % (0-1); EOSINOPHILS # (AUTO) 0.2 X10'3 (0-0.9); EOSINOPHILS % (AUTO) 2.2 % (0-6); HEMATOCRIT 36.2 % (42.0-52.0); HEMOGLOBIN 12.1 g/dl (14.0-17.9); LYMPHOCYTES # (AUTO) 2.6 X10'3 (1.1-4.8); LYMPHOCYTES % (AUTO) 29.1 % (21-51); MEAN CORPUSCULAR HEMOGLOBIN 35.2 PG (27.0-31.0); MEAN CORPUSCULAR HGB CONC 33.5 g/dL (33.0-36.5); MEAN CORPUSCULAR VOLUME 105.2 FL (78-98); MEAN PLATELET VOLUME 9.8 FL (7.4-10.4); MONOCYTES # (AUTO) 1.1 X10'3 (0-0.9); MONOCYTES % (AUTO) 11.9 % (2-12); NEUTROPHILS % (AUTO) 56.1 % (42-75); PLATELET COUNT 200 X10'3 (140-440); RED BLOOD COUNT 3.44 X10'6 (4.70-6.10); RED CELL DISTRIBUTION WIDTH 13.5 % (11.5-14.5); WHITE BLOOD COUNT 8.9 X10'3 (4.5-11.0)
[2019-12-12 06:00] LABS: ALBUMIN 2.9 G/DL (3.4-5.0); ANION GAP 6 (8-16); BLOOD UREA NITROGEN 9 MG/DL (7-18); BUN/CREATININE RATIO 7.3 (5.4-32.0); CALCIUM 9.4 MG/DL (8.5-10.1); CHLORIDE 103 MMOL/L (99-107); CREATININE 1.24 MG/DL (0.60-1.10); GLUCOSE 92 MG/DL (70-104); POTASSIUM 3.9 MMOL/L (3.5-5.1); SODIUM 137 MMOL/L (135-145); TOTAL CARBON DIOXIDE 27.7 MMOL/L (24-32); eGFR 58 ML/MIN
--- NOTE | 2019-12-12 06:00 | NUR ---
Patient in room PCU 3012. I have received report from RAFAELA Le and had the opportunity to ask questions and assume patient care.
--- NOTE | 2019-12-12 06:23 | NUR ---
Problems reprioritized. Patient report given, questions answered & plan of care reviewed with MIR RUSSO.
[2019-12-12] MEDS: thiamine 100mg tablet PO SCH (08:00)
[2019-12-12] MEDS: lactobacillus rhamnosus 10,000 MMU CELLS/CAPSULE PO SCH ×2 (08:00→20:00)
[2019-12-12] MEDS: magnesium oxide 400mg tablet PO SCH ×3 (08:00→20:00)
[2019-12-12] MEDS: multivitamins, therapeutics tablet PO SCH (08:00)
[2019-12-12] MEDS: lactulose 20gm/30ml cup PO SCH (08:00)
[2019-12-12] MEDS: K and/or MAG REPLACEMENT MC SCH ×2 (08:00→18:40)
[2019-12-12] MEDS: allopurinol 100mg tablet PO SCH (08:00)
[2019-12-12] MEDS: lisinopril 20mg tablet PO SCH ×2 (08:00→20:00)
[2019-12-12] MEDS: folic acid 1mg tablet PO SCH (08:00)
[2019-12-12] MEDS: metoprolol succinate 25mg (24-HOUR) SR. Tablet PO SCH (08:00)
[2019-12-12] MEDS: pantoprazole 40mg Tablet.DR PO SCH (08:00)
[2019-12-12] MEDS: dextrose 5%-normal saline 1,000 ML IV SCH (10:20)
[2019-12-12] MEDS: heparin, porcine 5000 units/ml vial SQ SCH ×2 (10:20→19:11)
[2019-12-12] MEDS ORDERED: ziprasidone IM 20mg inj **IM only IM PRN (12:45)
--- NOTE | 2019-12-12 13:00 | NUR ---
Unable to Give oral meds due to patient's sedation level and inability to swallow. MD aware.
[2019-12-12] MEDS: metoprolol tartrate 1mg/ml inj IV PRN ×2 (13:34→23:35)
--- NOTE | 2019-12-12 18:16 | NUR ---
Problems reprioritized. Patient report given, questions answered & plan of care reviewed with RAFAELA Mancini.
--- NOTE | 2019-12-12 18:22 | NUR ---
Patient in room PCU 3012. I have received report from RAFAELA Mendoza and had the opportunity to ask questions and assume patient care.
[2019-12-12] MEDS: risperiDONE 0.5mg tablet PO SCH (21:00)
[2019-12-13 02:00] VITALS: BP 159/72
[2019-12-13] MEDS: dextrose 5%-normal saline 1,000 ML IV SCH (02:33)
[2019-12-13 06:00] VITALS: BP 144/78
--- NOTE | 2019-12-13 06:00 | NUR ---
Patient in room PCU 3012. I have received report from Addis RUSSO and had the opportunity to ask questions and assume patient care.
--- NOTE | 2019-12-13 06:23 | NUR ---
Problems reprioritized. Patient report given, questions answered & plan of care reviewed with RAFAELA Ridley.
--- NOTE | 2019-12-13 07:34 | NUR ---
PAGER ID: [phone] MESSAGE: [phone] Sandra Bolton Holding all AM meds except SQ heparin d/t pt having difficulty swallowing. Awaiting ST re-eval. CARLA Ridley [phone]
--- NOTE | 2019-12-13 07:37 | NUR ---
Paged Speech Therapy [phone] Sandra Bolton Has a ST [id number] ordered for difficulty swallowing. Has been refusing meals and meds. Order placed 12/12/19. Thank you!
[2019-12-13] MEDS: heparin, porcine 5000 units/ml vial SQ SCH ×2 (07:40→21:45)
[2019-12-13] MEDS: lactulose 20gm/30ml cup PO SCH (07:42)
[2019-12-13] MEDS: pantoprazole 40mg Tablet.DR PO SCH (07:43)
[2019-12-13] MEDS: multivitamins, therapeutics tablet PO SCH (07:43)
[2019-12-13] MEDS: folic acid 1mg tablet PO SCH (07:43)
[2019-12-13] MEDS: lactobacillus rhamnosus 10,000 MMU CELLS/CAPSULE PO SCH ×2 (07:43→20:00)
[2019-12-13] MEDS: magnesium oxide 400mg tablet PO SCH ×3 (07:43→20:00)
[2019-12-13] MEDS: lisinopril 20mg tablet PO SCH ×2 (07:44→20:00)
[2019-12-13] MEDS: thiamine 100mg tablet PO SCH (07:44)
[2019-12-13] MEDS: metoprolol succinate 25mg (24-HOUR) SR. Tablet PO SCH (07:44)
[2019-12-13] MEDS: allopurinol 100mg tablet PO SCH (07:45)
[2019-12-13] MEDS: K and/or MAG REPLACEMENT MC SCH ×2 (08:00→20:00)
[2019-12-13 10:29] LABS: CLARITY,URINE CLEAR (Clear); COLOR,URINE YELLOW (Yellow); GLUCOSE, URINE NEGATIVE (Neg); KETONES,URINE NEGATIVE (Neg); LEUKOCYTE ESTERASE ,URINE NEGATIVE (Neg); NITRITES, URINE NEGATIVE (Neg); OCCULT BLOOD,URINE NEGATIVE (Neg); PROTEIN,URINE NEGATIVE (Neg); UROBILINOGEN,URINE 0.2 E.U/dL (0.2-1.0)
[2019-12-13 10:39] LABS: UA COLLECTION TYPE FOLEY CATH
[2019-12-13 10:51] LABS: BASOPHILS # (AUTO) 0.1 X10'3 (0-0.2); BASOPHILS % (AUTO) 0.7 % (0-1); EOSINOPHILS # (AUTO) 0.1 X10'3 (0-0.9); EOSINOPHILS % (AUTO) 0.6 % (0-6); LYMPHOCYTES # (AUTO) 2.1 X10'3 (1.1-4.8); MEAN CORPUSCULAR HEMOGLOBIN 35.2 PG (27.0-31.0); PLATELET COUNT 237 X10'3 (140-440)
[2019-12-13 10:53] LABS: HEMATOCRIT 35.7 % (42.0-52.0); LYMPHOCYTES % (AUTO) 19.6 % (21-51); MEAN CORPUSCULAR HGB CONC 33.5 g/dL (33.0-36.5); MEAN CORPUSCULAR VOLUME 105.2 FL (78-98); MEAN PLATELET VOLUME 9.4 FL (7.4-10.4); MONOCYTES # (AUTO) 1.3 X10'3 (0-0.9); NEUTROPHILS # (AUTO) 7.4 X10'3 (1.8-7.7); NEUTROPHILS % (AUTO) 67.1 % (42-75); RED CELL DISTRIBUTION WIDTH 13.4 % (11.5-14.5); WHITE BLOOD COUNT 10.9 X10'3 (4.5-11.0)
[2019-12-13 11:00] VITALS: BP 137/61
[2019-12-13 11:16] LABS: ALANINE AMINOTRANSFERASE 32 U/L (12-78); ALBUMIN 2.9 G/DL (3.4-5.0); ALBUMIN/GLOBULIN RATIO 0.7 (1.1-1.5); ALKALINE PHOSPHATASE 70 IU/L (46-116); ANION GAP 4 (8-16); ASPARTATE AMINO TRANSFERASE 62 U/L (10-37); BILIRUBIN,TOTAL 0.8 MG/DL (0.1-1.0); BLOOD UREA NITROGEN 9 MG/DL (7-18); BUN/CREATININE RATIO 8.2 (5.4-32.0); CALCIUM 9.1 MG/DL (8.5-10.1); CHLORIDE 101 MMOL/L (99-107); GLUCOSE 100 MG/DL (70-104); POTASSIUM 3.8 MMOL/L (3.5-5.1); SODIUM 133 MMOL/L (135-145); TOTAL CARBON DIOXIDE 27.6 MMOL/L (24-32); TOTAL PROTEIN 7.1 G/DL (6.4-8.2); eGFR 67 ML/MIN
--- NOTE | 2019-12-13 11:49 | NUR ---
PAGER ID: [phone] MESSAGE: [phone] Sandra Bolton Restraint orders need to be renewed. Just FYI! Thank you! Keyana [phone]
[2019-12-13] MEDS ORDERED: thiamine 100mg/ml 2ml inj. IV SCH (12:25)
--- NOTE | 2019-12-13 13:44 | NUR ---
Reassessment: Patient's PO intake recently declined, documented with 0% PO intake x 3 most recent meals. Likely that decrease in PO intake is r/t mentation. Pt is documented to be receiving total assistance with meals and eats fairly well with recent average up to 75-100% when he does eat. Noted that pt documented to be unable to swallow both yesterday and today in nutrition intake and PO medications are not being given r/t inability to swallow. RN has already consulted for f/u BSS. LBM 12/11 although unknown size. Routine Lactulose not being given at this time as it is a PO medication. Possible that pt constipated however nutrition intervention for constipation not appropriate at this time. Will continue to follow closely. Recommendations: 1) Continue heart healthy mechanical soft grind all diet per recs with possible additional texture modification pending f/u BSS with 2) Encourage PO intake; assist with meals 3) Ensure pudding q breakfast, cottage cheese q lunch, yogurt q dinner 4) Continue routine Thiamine, Folic acid, and MVI given EtOH hx and elevated MCV 5) Routine bowel care (receiving Lactulose) 6) Scaled wts Addendum: 12/13/19 at [address] Amended: Links added.
[2019-12-13 15:00] VITALS: BP 137/86
[2019-12-13] MEDS: thiamine inj. 100 MG in normal saline 100ml IV soln 100 ML IV SCH (15:27)
[2019-12-13] MEDS: folic acid 1mg/0.2ml inj IV SCH (15:27)
--- NOTE | 2019-12-13 18:12 | NUR ---
Problems reprioritized. Patient report given, questions answered & plan of care reviewed with Petty RUSSO.
[2019-12-13 18:30] VITALS: BP 153/80
--- NOTE | 2019-12-13 18:30 | NUR ---
Patient in room PCU 3012. I have received report from ELLIOTT and had the opportunity to ask questions and assume patient care.
[2019-12-13] MEDS: risperiDONE 0.5mg tablet PO SCH (21:00)
[2019-12-13 22:15] VITALS: BP 158/92
[2019-12-14 02:00] VITALS: BP 115/76
[2019-12-14] MEDS: dextrose 5%-normal saline 1,000 ML IV SCH ×2 (02:05→21:15)
--- NOTE | 2019-12-14 06:20 | NUR ---
Patient in room PCU 3012. I have received report from RAFAELA Dove and had the opportunity to ask questions and assume patient care.
[2019-12-14 06:30] VITALS: BP 159/74
[2019-12-14] MEDS: K and/or MAG REPLACEMENT MC SCH ×2 (06:57→20:00)
[2019-12-14] MEDS: magnesium oxide 400mg tablet PO SCH ×3 (06:58→20:00)
[2019-12-14] MEDS: pantoprazole 40mg Tablet.DR PO SCH (06:58)
[2019-12-14] MEDS: lactulose 20gm/30ml cup PO SCH (06:58)
[2019-12-14] MEDS: lactobacillus rhamnosus 10,000 MMU CELLS/CAPSULE PO SCH ×2 (06:58→20:00)
[2019-12-14] MEDS: metoprolol succinate 25mg (24-HOUR) SR. Tablet PO SCH (06:58)
[2019-12-14] MEDS: lisinopril 20mg tablet PO SCH ×2 (06:59→20:00)
[2019-12-14] MEDS: allopurinol 100mg tablet PO SCH (06:59)
[2019-12-14] MEDS: thiamine inj. 100 MG in normal saline 100ml IV soln 100 ML IV SCH (08:19)
[2019-12-14] MEDS: heparin, porcine 5000 units/ml vial SQ SCH ×2 (08:19→21:14)
[2019-12-14] MEDS: folic acid 1mg/0.2ml inj IV SCH (10:12)
[2019-12-14 11:00] VITALS: BP 143/71
[2019-12-14 15:00] VITALS: BP 158/62
--- NOTE | 2019-12-14 18:05 | NUR ---
Problems reprioritized. Patient report given, questions answered & plan of care reviewed with RAFAELA Dove.
--- NOTE | 2019-12-14 18:30 | NUR ---
Patient in room PCU 3012. I have received report from ANUEL and had the opportunity to ask questions and assume patient care.
[2019-12-14 19:00] VITALS: BP 147/86
[2019-12-14] MEDS: risperiDONE 0.5mg tablet PO SCH (21:00)
[2019-12-14 23:00] VITALS: BP 174/86
[2019-12-15] VITALS (7 sets, daily range): BP systolic 124–161; BP diastolic 48–86
--- NOTE | 2019-12-15 06:16 | NUR ---
Patient in room PCU 3012. I have received report from Petty RUSSO and had the opportunity to ask questions and assume patient care.
--- NOTE | 2019-12-15 06:29 | NUR ---
Problems reprioritized. Patient report given, questions answered & plan of care reviewed with DORY.
--- NOTE | 2019-12-15 07:30 | NUR ---
Per Speech therapist soniya, patient did not passed the swallow test. Will keep patient NPO for now. Patient currently on D5NS @ 50ml/hr. Charge nurse Kenton notified.
--- NOTE | 2019-12-15 07:58 | NUR ---
Pageconrad Eisenberg to let him know that patient did not passed the swallow eval done by ST today Addendum: 12/15/19 at 1457 by Nilsa Arriaga RN Discussed this concern with Dr. Eisenberg about patient did not passed the swallow eval when he made rounds. He agreed to keep patient NPO for now and have speech therapist reevaluate the patient tomorrow.
[2019-12-15] MEDS: lactulose 20gm/30ml cup PO SCH (08:00)
[2019-12-15] MEDS: pantoprazole 40mg Tablet.DR PO SCH (08:00)
[2019-12-15] MEDS: lisinopril 20mg tablet PO SCH ×2 (08:00→20:00)
[2019-12-15] MEDS: allopurinol 100mg tablet PO SCH (08:00)
[2019-12-15] MEDS: lactobacillus rhamnosus 10,000 MMU CELLS/CAPSULE PO SCH ×2 (08:00→20:00)
[2019-12-15] MEDS: metoprolol succinate 25mg (24-HOUR) SR. Tablet PO SCH (08:00)
[2019-12-15] MEDS: K and/or MAG REPLACEMENT MC SCH ×2 (08:00→20:00)
[2019-12-15] MEDS: magnesium oxide 400mg tablet PO SCH ×3 (08:00→20:00)
[2019-12-15] MEDS: thiamine inj. 100 MG in normal saline 100ml IV soln 100 ML IV SCH (08:26)
[2019-12-15] MEDS: folic acid 1mg/0.2ml inj IV SCH (08:27)
[2019-12-15] MEDS: heparin, porcine 5000 units/ml vial SQ SCH ×2 (08:27→20:59)
[2019-12-15] MEDS: dextrose 5%-normal saline 1,000 ML IV SCH (16:03)
--- NOTE | 2019-12-15 18:23 | NUR ---
Problems reprioritized. Patient report given, questions answered & plan of care reviewed with Petty RUSSO.
--- NOTE | 2019-12-15 18:30 | NUR ---
Patient in room PCU 3012. I have received report from FERNANDO and had the opportunity to ask questions and assume patient care. ASSUMED CARE OF PT WITH RN STUDENT MAURO Gardiner
--- NOTE | 2019-12-15 18:59 | NUR ---
Problems reprioritized. Patient report given, questions answered & plan of care reviewed with Graciela RUSSO.
[2019-12-15] MEDS: risperiDONE 0.5mg tablet PO SCH (21:00)
[2019-12-16 02:00] VITALS: BP 147/62
--- NOTE | 2019-12-16 06:03 | NUR ---
Student documentation: I have reviewed and agree with all interventions, assessments performed and documented by MAURO Powell Medication Administration: For this medication-pass time frame, all medication were reviewed, dispensed, administered and documented per hospital policy by MAURO Gardiner
--- NOTE | 2019-12-16 06:33 | NUR ---
Problems reprioritized. Patient report given, questions answered & plan of care reviewed with KEYONNA.
[2019-12-16 07:00] VITALS: BP 174/88
[2019-12-16] MEDS: lactobacillus rhamnosus 10,000 MMU CELLS/CAPSULE PO SCH ×2 (08:00→19:18)
[2019-12-16] MEDS: lisinopril 20mg tablet PO SCH ×2 (08:00→19:19)
[2019-12-16] MEDS: metoprolol succinate 25mg (24-HOUR) SR. Tablet PO SCH (08:00)
[2019-12-16] MEDS: lactulose 20gm/30ml cup PO SCH (08:00)
[2019-12-16] MEDS: magnesium oxide 400mg tablet PO SCH ×3 (08:00→19:18)
[2019-12-16] MEDS: K and/or MAG REPLACEMENT MC SCH ×2 (08:00→19:18)
[2019-12-16] MEDS: pantoprazole 40mg Tablet.DR PO SCH (08:00)
[2019-12-16] MEDS: allopurinol 100mg tablet PO SCH (08:00)
[2019-12-16] MEDS: heparin, porcine 5000 units/ml vial SQ SCH ×2 (08:53→19:23)
[2019-12-16] MEDS: thiamine inj. 100 MG in normal saline 100ml IV soln 100 ML IV SCH (08:53)
[2019-12-16] MEDS: folic acid 1mg/0.2ml inj IV SCH (08:53)
--- NOTE | 2019-12-16 09:14 | NUR ---
Reassessment: Pt s/p BSS yesterday and today with recs NPO d/t inability to swallow safely secondary to cognitive state. Diet order has been adjusted as such. Pt continues with a sitter at bedside. [facility] 12/11. Will continue to follow closely and monitor need for alternative nutrition. Recommendations: 1) Advance to regular diet as medically indicated per ST recs pending f/u BSS 2) Once PO diet is advanced, encourage PO intake; assist with meals 3) Once PO diet is advanced, Ensure pudding q breakfast, cottage cheese q lunch, yogurt q dinner 4) Continue routine Thiamine, Folic acid, and MVI given EtOH hx and elevated MCV 5) Routine bowel care (receiving Lactulose) 6) Scaled wts 7) Monitor need for alternative nutrition Addendum: 12/16/19 at [address] Amended: Links added.
[2019-12-16 11:00] VITALS: BP 154/91
[2019-12-16] MEDS: dextrose 5%-normal saline 1,000 ML IV SCH (14:09)
--- NOTE | 2019-12-16 19:05 | NUR ---
Patient in room IGOR 359. I have received report from RAFAELA Lemus and had the opportunity to ask questions and assume patient care. Addendum: 12/16/19 at 1908 by Gayle Mckenna RN Amended: Links added.
[2019-12-16] MEDS: risperiDONE 0.5mg tablet PO SCH (19:19)
[2019-12-16 19:29] VITALS: BP 123/84
[2019-12-16 23:39] VITALS: BP 164/88
[2019-12-17] MEDS: metoprolol tartrate 1mg/ml inj IV PRN (00:40)
[2019-12-17 02:12] VITALS: BP 142/68
--- NOTE | 2019-12-17 06:16 | NUR ---
Problems reprioritized. Patient report given, questions answered & plan of care reviewed with RAFAELA Munoz. Addendum: 12/17/19 at 0616 by Gayle Mckenna RN Amended: Links added.
--- NOTE | 2019-12-17 06:27 | NUR ---
Patient in room IGOR 359. I have received report from Gayle RUSSO and had the opportunity to ask questions and assume patient care.
[2019-12-17 07:00] VITALS: BP 176/83
[2019-12-17] MEDS: lactulose 20gm/30ml cup PO SCH (08:00)
[2019-12-17] MEDS: K and/or MAG REPLACEMENT MC SCH ×2 (08:00→20:00)
[2019-12-17] MEDS: metoprolol succinate 25mg (24-HOUR) SR. Tablet PO SCH (08:00)
[2019-12-17] MEDS: magnesium oxide 400mg tablet PO SCH ×4 (08:00→20:00)
[2019-12-17] MEDS: lactobacillus rhamnosus 10,000 MMU CELLS/CAPSULE PO SCH ×2 (08:00→19:18)
[2019-12-17] MEDS: allopurinol 100mg tablet PO SCH (08:00)
[2019-12-17] MEDS: lisinopril 20mg tablet PO SCH ×3 (08:00→20:00)
[2019-12-17] MEDS: dextrose 5%-normal saline 1,000 ML IV SCH (08:25)
[2019-12-17] MEDS: heparin, porcine 5000 units/ml vial SQ SCH ×3 (08:25→20:00)
[2019-12-17] MEDS: thiamine inj. 100 MG in normal saline 100ml IV soln 100 ML IV SCH (08:26)
[2019-12-17 08:32] VITALS: BP 188/84
[2019-12-17] MEDS: pantoprazole 40 MG vial IV SCH (08:33)
--- NOTE | 2019-12-17 09:34 | NUR ---
paged Dr Eisenberg, pt IVF D5 at 50ml/hr. Pt NPO 5x, BP increased. Pt weak, Swallow test today at noon. Will follow up with Rao Speech therapist this afternoon. PAGER ID: [phone] MESSAGE: Sukhdeep Bolton#[phone] -Pt has been NPO (5X) and still has several meds PO including BP meds.Speech therapy will re-access him today. In the mean time, can we get him some IV HTN meds to give him.BP 176/83 HR96. Increase IVF? Please advise.
[2019-12-17] MEDS ORDERED: multivitamins, therapeutics tablet PO SCH (09:42)
[2019-12-17] MEDS: thiamine 100mg tablet PO SCH (09:42)
[2019-12-17] MEDS: folic acid 1mg tablet PO SCH (09:42)
--- NOTE | 2019-12-17 11:00 | NUR ---
pt passed the swallow test, A & O x1, pt drank 4oz of water, no cough or choking. pt able to chew and swallow ice chips with out a problem. Dr Eisenberg aware of results. pt to be started on fluids and advanced as tolerated.
[2019-12-17 18:00] VITALS: BP 177/79
--- NOTE | 2019-12-17 18:00 | NUR ---
Problems reprioritized. Patient report given, questions answered & plan of care reviewed with Gayle Ragland.
[2019-12-17] MEDS: risperiDONE 0.5mg tablet PO SCH ×2 (19:19→20:59)
--- NOTE | 2019-12-17 20:59 | NUR ---
pt. refused all meds. pt. stating "no, no, no". pushing my arm away.
--- NOTE | 2019-12-17 21:52 | NUR ---
Patient in room IGOR 359. I have received report from RAFAELA Munoz and had the opportunity to ask questions and assume patient care. Addendum: 12/17/19 at 2154 by Gayle Mckenna RN Amended: Links added.
[2019-12-17 23:23] VITALS: BP 167/84
[2019-12-18] VITALS: BP 164/94
--- NOTE | 2019-12-18 00:10 | NUR ---
Problems reprioritized. Patient report given, questions answered & plan of care reviewed with RAFAELA Grajeda. Addendum: 12/18/19 at 0011 by Gayle Mckenna RN Amended: Links added.
--- NOTE | 2019-12-18 00:12 | NUR ---
Problems reprioritized. Patient report given, questions answered & plan of care reviewed with RAFAELA Childs. Addendum: 12/18/19 at 0013 by Gayle Mckenna RN Amended: Links added.
[2019-12-18] MEDS: LORazepam 0.5 MG tablet PO PRN (00:40)
[2019-12-18 07:00] VITALS: BP 178/90
--- NOTE | 2019-12-18 07:00 | NUR ---
Patient in room IGOR 359. I have received report from Pat RN and had the opportunity to ask questions and assume patient care.
[2019-12-18] MEDS: K and/or MAG REPLACEMENT MC SCH ×2 (08:00→20:00)
[2019-12-18] MEDS: lactulose 20gm/30ml cup PO SCH (08:00)
[2019-12-18] MEDS: lactobacillus rhamnosus 10,000 MMU CELLS/CAPSULE PO SCH ×2 (09:47→21:09)
[2019-12-18] MEDS: magnesium oxide 400mg tablet PO SCH ×3 (09:47→21:09)
[2019-12-18] MEDS: thiamine 100mg tablet PO SCH (09:47)
[2019-12-18] MEDS: folic acid 1mg tablet PO SCH (09:47)
[2019-12-18] MEDS: allopurinol 100mg tablet PO SCH (09:47)
[2019-12-18] MEDS: metoprolol succinate 25mg (24-HOUR) SR. Tablet PO SCH (09:47)
[2019-12-18] MEDS: pantoprazole 40 MG vial IV SCH (09:48)
[2019-12-18] MEDS: heparin, porcine 5000 units/ml vial SQ SCH ×2 (09:48→21:10)
[2019-12-18] MEDS: lisinopril 20mg tablet PO SCH ×2 (09:49→21:09)
[2019-12-18 11:00] VITALS: BP 179/92
[2019-12-18] MEDS: dextrose 5%-normal saline 1,000 ML IV SCH (12:35)
[2019-12-18 18:00] VITALS: BP 161/92
--- NOTE | 2019-12-18 18:31 | NUR ---
Problems reprioritized. Patient report given, questions answered & plan of care reviewed with Rissa Kwok Rn.
--- NOTE | 2019-12-18 18:35 | NUR ---
Patient in room IGOR 359. I have received report from KAILASH RUSSO and had the opportunity to ask questions and assume patient care.
[2019-12-18] MEDS: risperiDONE 0.5mg tablet PO SCH (21:08)
[2019-12-19 00:13] VITALS: BP 153/81
[2019-12-19] MEDS: dextrose 5%-normal saline 1,000 ML IV SCH (03:47)
--- NOTE | 2019-12-19 06:28 | NUR ---
Problems reprioritized. Patient report given, questions answered & plan of care reviewed with KAILASH RUSSO.
--- NOTE | 2019-12-19 07:00 | NUR ---
Patient in room IGOR 359. I have received report from Rissa Kwok RN and had the opportunity to ask questions and assume patient care.
[2019-12-19] MEDS: heparin, porcine 5000 units/ml vial SQ SCH ×2 (08:00→20:31)
[2019-12-19] MEDS: K and/or MAG REPLACEMENT MC SCH ×2 (08:00→20:00)
[2019-12-19 09:01] VITALS: BP 173/82
[2019-12-19] MEDS: thiamine 100mg tablet PO SCH (09:33)
[2019-12-19] MEDS: lactobacillus rhamnosus 10,000 MMU CELLS/CAPSULE PO SCH ×2 (09:33→20:28)
[2019-12-19] MEDS: metoprolol succinate 25mg (24-HOUR) SR. Tablet PO SCH (09:33)
[2019-12-19] MEDS: magnesium oxide 400mg tablet PO SCH ×3 (09:33→20:28)
[2019-12-19] MEDS: allopurinol 100mg tablet PO SCH (09:33)
[2019-12-19] MEDS: lisinopril 20mg tablet PO SCH ×2 (09:34→20:29)
[2019-12-19] MEDS: folic acid 1mg tablet PO SCH (09:34)
[2019-12-19] MEDS: lactulose 20gm/30ml cup PO SCH (09:35)
[2019-12-19] MEDS: pantoprazole 40 MG vial IV SCH (09:35)
[2019-12-19 11:00] VITALS: BP 140/69
--- NOTE | 2019-12-19 12:40 | NUR ---
Reassessment: Pt s/p f/u BSS with ST recs pureed food with thin liquids and pt needs a feeder. Pt initially with 0-25% PO intake with diet advancement however up to average 75% PO intake at dinner last night. Pending documentation of PO intake for today. Pt continues with a sitter and is documented to be receiving assistance with meals. D/w dietary to send yogurt with lunches instead of cottage cheese since pt is now on a pureed diet. LBM / however documented with smears 12/14-12/17. Pt received first dose of Lactulose today since 12/10. Constipation as well as ALOC could be contributing to poor PO intake. D/w dietary to send prune juice with next meal to assist with bowel regularity. Will continue to follow closely. Recommendations: 1) Continue pureed food with thin liquids per ST recs 2) Advance to regular diet as medically indicated 3) Encourage PO intake; assist with meals 4) Ensure pudding q breakfast, yogurt BIDLD 5) Continue routine Thiamine, Folic acid, and MVI given EtOH hx and elevated MCV 6) Routine bowel care (receiving Lactulose) 7) Scaled wts 8) Monitor need for alternative nutrition to meet nutrient needs Addendum: 12/19/19 at [address] Amended: Links added.
[2019-12-19 18:00] VITALS: BP 168/81
--- NOTE | 2019-12-19 18:40 | NUR ---
Received report from primary care nurse Tammy RUSSO. Assumed patient care. Patient is awake and alert with sitter at his bedside. Call light and items of frequent use within reach. Will continue to monitor for changes.
--- NOTE | 2019-12-19 19:00 | NUR ---
Patient making more complete sentences. Addendum: 12/19/19 at 2145 by Lulu Porter RN Amended: Links added.
[2019-12-19] MEDS: risperiDONE 0.5mg tablet PO SCH (20:31)
[2019-12-20] VITALS (7 sets, daily range): BP systolic 130–178; BP diastolic 54–89
[2019-12-20] MEDS: dextrose 5%-normal saline 1,000 ML IV SCH (05:19)
--- NOTE | 2019-12-20 06:27 | NUR ---
Patient in room IGOR 359. I have received report from Lulu RUSSO and had the opportunity to ask questions and assume patient care.
--- NOTE | 2019-12-20 06:51 | NUR ---
Reported off to Kristen RUSSO. Patient is resting with relaxed and unlabored respirations on room air. In no apparent distress. Sitter is at the bedside.
[2019-12-20] MEDS: K and/or MAG REPLACEMENT MC SCH ×2 (08:00→20:00)
[2019-12-20] MEDS: pantoprazole 40 MG vial IV SCH (08:13)
[2019-12-20] MEDS: heparin, porcine 5000 units/ml vial SQ SCH ×2 (08:13→20:43)
[2019-12-20] MEDS: lactulose 20gm/30ml cup PO SCH (08:13)
[2019-12-20] MEDS: lisinopril 20mg tablet PO SCH ×2 (08:14→20:50)
[2019-12-20] MEDS: metoprolol succinate 25mg (24-HOUR) SR. Tablet PO SCH (08:14)
[2019-12-20] MEDS: lactobacillus rhamnosus 10,000 MMU CELLS/CAPSULE PO SCH ×2 (08:14→20:43)
[2019-12-20] MEDS: folic acid 1mg tablet PO SCH (08:14)
[2019-12-20] MEDS: magnesium oxide 400mg tablet PO SCH ×3 (08:15→20:45)
[2019-12-20] MEDS: allopurinol 100mg tablet PO SCH (08:15)
[2019-12-20] MEDS: thiamine 100mg tablet PO SCH (08:15)
--- NOTE | 2019-12-20 18:04 | NUR ---
Problems reprioritized. Patient report given, questions answered & plan of care reviewed with Kavya RUSSO.
--- NOTE | 2019-12-20 18:10 | NUR ---
Patient in room IGOR 359. I have received report from Nilsa RUSSO and had the opportunity to ask questions and assume patient care.
[2019-12-20] MEDS: risperiDONE 0.5mg tablet PO SCH (20:43)
[2019-12-20] MEDS: hydrALAZINE 20mg/ml inj. IV PRN (21:07)
[2019-12-21] VITALS (8 sets, daily range): BP systolic 130–190; BP diastolic 58–111
[2019-12-21] MEDS: dextrose 5%-normal saline 1,000 ML IV SCH ×2 (01:53→20:08)
--- NOTE | 2019-12-21 06:00 | NUR ---
Problems reprioritized. Patient report given, questions answered & plan of care reviewed with Nilsa RUSSO.
--- NOTE | 2019-12-21 06:09 | NUR ---
Patient in room IGOR 359. I have received report from Kavya RUSSO and had the opportunity to ask questions and assume patient care.
[2019-12-21] MEDS: pantoprazole 40 MG vial IV SCH (07:13)
[2019-12-21] MEDS: heparin, porcine 5000 units/ml vial SQ SCH ×2 (07:14→20:05)
[2019-12-21] MEDS: allopurinol 100mg tablet PO SCH ×2 (08:00→08:34)
[2019-12-21] MEDS: lactulose 20gm/30ml cup PO SCH ×2 (08:00→08:34)
[2019-12-21] MEDS: folic acid 1mg tablet PO SCH ×2 (08:00→08:34)
[2019-12-21] MEDS: metoprolol succinate 25mg (24-HOUR) SR. Tablet PO SCH ×2 (08:00→08:34)
[2019-12-21] MEDS: K and/or MAG REPLACEMENT MC SCH ×3 (08:00→20:00)
[2019-12-21] MEDS: lactobacillus rhamnosus 10,000 MMU CELLS/CAPSULE PO SCH ×3 (08:00→20:04)
[2019-12-21] MEDS: magnesium oxide 400mg tablet PO SCH ×4 (08:00→20:04)
[2019-12-21] MEDS: lisinopril 20mg tablet PO SCH ×3 (08:00→20:05)
[2019-12-21] MEDS: thiamine 100mg tablet PO SCH ×2 (08:00→08:34)
[2019-12-21] MEDS: hydrALAZINE 20mg/ml inj. IV PRN (08:29)
--- NOTE | 2019-12-21 09:33 | NUR ---
Paged Dr. Eisenberg: PAGER ID: [phone] MESSAGE: Surgical flr Nilsa RN ext [phone]. RE: Sukhdeep Bolton. Patient had high SBP 180-190 this am, gave hydralazine now 140/80 . Pt unable to swallow pills. Can we have labs CBC, BMP today? He has not had x 8 days he is on heparin & Mag Oxide
[2019-12-21 11:33] LABS: BASOPHILS # (AUTO) 0.1 X10'3 (0-0.2); BASOPHILS % (AUTO) 1.2 % (0-1); EOSINOPHILS # (AUTO) 0.2 X10'3 (0-0.9); EOSINOPHILS % (AUTO) 3.2 % (0-6); HEMOGLOBIN 11.7 g/dl (14.0-17.9); LYMPHOCYTES # (AUTO) 1.9 X10'3 (1.1-4.8); LYMPHOCYTES % (AUTO) 26.1 % (21-51); MEAN CORPUSCULAR HEMOGLOBIN 35.2 PG (27.0-31.0); MEAN CORPUSCULAR HGB CONC 34.3 g/dL (33.0-36.5); MEAN CORPUSCULAR VOLUME 102.8 FL (78-98); MEAN PLATELET VOLUME 8.3 FL (7.4-10.4); MONOCYTES # (AUTO) 0.7 X10'3 (0-0.9); MONOCYTES % (AUTO) 9.5 % (2-12); NEUTROPHILS # (AUTO) 4.4 X10'3 (1.8-7.7); PLATELET COUNT 321 X10'3 (140-440); RED BLOOD COUNT 3.31 X10'6 (4.70-6.10); RED CELL DISTRIBUTION WIDTH 13.4 % (11.5-14.5); WHITE BLOOD COUNT 7.3 X10'3 (4.5-11.0)
[2019-12-21 11:37] LABS: ALBUMIN 2.8 G/DL (3.4-5.0); ANION GAP 10 (8-16); BLOOD UREA NITROGEN 12 MG/DL (7-18); BUN/CREATININE RATIO 11.8 (5.4-32.0); CALCIUM 9.4 MG/DL (8.5-10.1); CHLORIDE 105 MMOL/L (99-107); CREATININE 1.02 MG/DL (0.60-1.10); GLUCOSE 112 MG/DL (70-104); POTASSIUM 3.2 MMOL/L (3.5-5.1); SODIUM 143 MMOL/L (135-145); TOTAL CARBON DIOXIDE 27.6 MMOL/L (24-32); eGFR 73 ML/MIN
--- NOTE | 2019-12-21 11:59 | NUR ---
K today is 3.2. Paged Dr. Eisenberg to report this and to obtain order for K replacement protocol.
--- NOTE | 2019-12-21 12:55 | NUR ---
Attempted to feed patient, patient won't cooperate. Patient won't open his mouth well when feeding him and patient kept the food in his mouth. I told Dr. Eisenberg about patient not cooperative with feeding and just keeping the food in his mouth.
[2019-12-21] MEDS ORDERED: potassium Cl 20 mEq SR tablet PO PRN ×2 (13:30)
[2019-12-21] MEDS: potassium CL 10mEq/100ml bag 100 ML IV PRN ×4 (14:33→18:51)
--- NOTE | 2019-12-21 14:43 | NUR ---
KCl 10 mEq IV given for K of 3.2. Patient unable to swallow the pill safely
--- NOTE | 2019-12-21 18:21 | NUR ---
Problems reprioritized. Patient report given, questions answered & plan of care reviewed with Isela RUSSO.
[2019-12-21] MEDS: risperiDONE 0.5mg tablet PO SCH (20:05)
[2019-12-22 08:00] VITALS: BP 114/87
[2019-12-22] MEDS: pantoprazole 40 MG vial IV SCH (08:36)
[2019-12-22] MEDS: lactulose 20gm/30ml cup PO SCH (08:42)
[2019-12-22] MEDS: lisinopril 20mg tablet PO SCH ×2 (08:46→20:05)
[2019-12-22] MEDS: thiamine 100mg tablet PO SCH (08:47)
[2019-12-22] MEDS: allopurinol 100mg tablet PO SCH (08:47)
[2019-12-22] MEDS: metoprolol succinate 25mg (24-HOUR) SR. Tablet PO SCH (08:47)
[2019-12-22] MEDS: magnesium oxide 400mg tablet PO SCH ×3 (08:48→20:04)
[2019-12-22] MEDS: folic acid 1mg tablet PO SCH (08:48)
[2019-12-22] MEDS: heparin, porcine 5000 units/ml vial SQ SCH ×2 (08:55→20:05)
[2019-12-22 09:02] LABS: ANION GAP 6 (8-16); CHLORIDE 107 MMOL/L (99-107); POTASSIUM 3.6 MMOL/L (3.5-5.1); SODIUM 142 MMOL/L (135-145); TOTAL CARBON DIOXIDE 29.4 MMOL/L (24-32)
[2019-12-22] MEDS: K and/or MAG REPLACEMENT MC SCH ×2 (10:39→19:13)
[2019-12-22] MEDS ORDERED: LORazepam 2 mg/ml vial IV PRN (10:40)
--- NOTE | 2019-12-22 10:42 | NUR ---
Patient refusing to swallow medications. Spits them all back out. Notified Dr Hedrick. Pt pulling at lines, broke IV tubing. Notified SS that in report noc RN stated that had requested comfort care. CELINE Santamaria states she will f/u with .
[2019-12-22 11:00] VITALS: BP 175/86
[2019-12-22] MEDS: LORazepam 0.5 MG tablet PO PRN (13:47)
--- NOTE | 2019-12-22 14:28 | NUR ---
Patient is restless, moving around in bed & leaning over bed rail to spit on the floor.
--- NOTE | 2019-12-22 15:41 | NUR ---
Reassessment: Pt poor PO continues 0-25% avg/refusing meals day 10 not meeting needs. LBM 5/8. Wernicke's ALOC AOx1 at baseline and pt refusing all PO, spitting out all PO, drooling on the floor per RN and EMR today. RD d/w RN regarding long-term nutrition support options if pt to go to long-term care may benefit from PEG. RN reports pending family meeting w/ MD today regarding code status given poor prognosis. RD d/w RN regarding scaled wt this admit since pt has not scaled wt hx this admit 33 days. Pt meets severe malnutrition criteria at this time given poor PO hx and rigid strength; MD notified. Not appropriate for malnutrition ed given ALOC and DX. Will continue to monitor for nutrition support needs, PO acceptance, and for any changes in code status. Recommendations: 1) Continue pureed food with thin liquids per ST recs 2) Advance to regular diet as medically indicated 3) Encourage PO intake; assist with meals 4) Ensure pudding q breakfast, yogurt BIDLD 5) Continue routine Thiamine, Folic acid, and MVI given EtOH hx and elevated MCV 6) Routine bowel care (receiving Lactulose) 7) Weekly scaled wts 8) Monitor need for alternative nutrition to meet nutrient needs given prolonged low PO day 10; consider PEG IF to receive long-term care to better meet nutrient needs Addendum: 12/22/19 at [address] Amended: Links added.
--- NOTE | 2019-12-22 18:42 | NUR ---
Patient in room IGOR 359. I have received report from joao Yadav and had the opportunity to ask questions and assume patient care.
[2019-12-22 20:00] VITALS: BP 172/67
[2019-12-22] MEDS: risperiDONE 0.5mg tablet PO SCH (20:05)
[2019-12-23] VITALS: BP 128/80
[2019-12-23] MEDS: dextrose 5%-normal saline 1,000 ML IV SCH ×2 (03:53→12:35)
--- NOTE | 2019-12-23 06:32 | NUR ---
Problems reprioritized. Patient report given, questions answered & plan of care reviewed with RAFAELA PEGUERO.
--- NOTE | 2019-12-23 07:00 | NUR ---
Patient in room IGOR 359. I have received report from RAFAELA Keyes and had the opportunity to ask questions and assume patient care.
[2019-12-23 07:30] VITALS: BP 139/94
[2019-12-23] MEDS: K and/or MAG REPLACEMENT MC SCH ×2 (08:00→20:00)
[2019-12-23] MEDS: thiamine 100mg tablet PO SCH (08:39)
[2019-12-23] MEDS: magnesium oxide 400mg tablet PO SCH ×3 (08:39→20:14)
[2019-12-23] MEDS: metoprolol succinate 25mg (24-HOUR) SR. Tablet PO SCH (08:39)
[2019-12-23] MEDS: folic acid 1mg tablet PO SCH (08:40)
[2019-12-23] MEDS: allopurinol 100mg tablet PO SCH (08:40)
[2019-12-23] MEDS: lisinopril 20mg tablet PO SCH ×2 (08:41→20:08)
[2019-12-23] MEDS: pantoprazole 40 MG vial IV SCH (08:41)
[2019-12-23] MEDS: heparin, porcine 5000 units/ml vial SQ SCH ×2 (08:45→20:08)
[2019-12-23] MEDS: lactulose 20gm/30ml cup PO SCH (08:52)
[2019-12-23 12:00] VITALS: BP 110/51
--- NOTE | 2019-12-23 18:40 | NUR ---
Patient in room IGOR 359. I have received report from Shanika RUSSO and had the opportunity to ask questions and assume patient care.
--- NOTE | 2019-12-23 18:58 | NUR ---
Problems reprioritized. Patient report given, questions answered & plan of care reviewed with RAFAELA Farmer.
[2019-12-23 19:00] VITALS: BP 179/69
[2019-12-23] MEDS: risperiDONE 0.5mg tablet PO SCH (20:07)
[2019-12-24] VITALS: BP 159/90
--- NOTE | 2019-12-24 07:05 | NUR ---
Patient in room IG[facility] 359. I have received report from Marleny RUSSO and had the opportunity to ask questions and assume patient care.
[2019-12-24 08:00] VITALS: BP 135/69
[2019-12-24] MEDS: K and/or MAG REPLACEMENT MC SCH ×2 (08:00→20:00)
[2019-12-24] MEDS: heparin, porcine 5000 units/ml vial SQ SCH ×2 (08:00→20:49)
[2019-12-24] MEDS: pantoprazole 40 MG vial IV SCH (09:45)
[2019-12-24] MEDS: lisinopril 20mg tablet PO SCH ×2 (09:46→20:50)
[2019-12-24] MEDS: magnesium oxide 400mg tablet PO SCH ×3 (09:46→20:50)
[2019-12-24] MEDS: allopurinol 100mg tablet PO SCH (09:46)
[2019-12-24] MEDS: metoprolol succinate 25mg (24-HOUR) SR. Tablet PO SCH (09:47)
[2019-12-24] MEDS: folic acid 1mg tablet PO SCH (09:47)
[2019-12-24] MEDS: thiamine 100mg tablet PO SCH (09:51)
[2019-12-24] MEDS: dextrose 5%-normal saline 1,000 ML IV SCH (09:52)
[2019-12-24] MEDS: lactulose 20gm/30ml cup PO SCH (09:52)
--- NOTE | 2019-12-24 10:51 | NUR ---
Per note 12/22 at 16:19 patient changed to DNR with comfort care. Will follow per policy. Addendum: 12/24/19 at [address] Amended: Links added.
[2019-12-24 11:00] VITALS: BP 159/80
[2019-12-24] MEDS ORDERED: MAGN400T52 PO (12:07)
[2019-12-24] MEDS ORDERED: folic acid tablet PO (12:07)
[2019-12-24] MEDS ORDERED: thiamine tablet PO (12:07)
[2019-12-24] MEDS ORDERED: LISI-600 PO (12:07)
[2019-12-24] MEDS ORDERED: METO-395 PO (12:07)
[2019-12-24] MEDS ORDERED: LACT10SO32 PO (12:07)
[2019-12-24] MEDS ORDERED: RISP0.5T3 PO (12:07)
[2019-12-24] MEDS ORDERED: Lorazepam PO (12:07)
[2019-12-24 19:00] VITALS: BP 161/63
[2019-12-24] MEDS: risperiDONE 0.5mg tablet PO SCH (20:50)
[2019-12-24 23:00] VITALS: BP 156/79
[2019-12-24 23:27] VITALS: BP 161/63
[2019-12-25 08:00] VITALS: BP 138/80
[2019-12-25] MEDS: K and/or MAG REPLACEMENT MC SCH ×2 (08:00→19:57)
[2019-12-25] MEDS: dextrose 5%-normal saline 1,000 ML IV SCH ×2 (10:23→23:59)
[2019-12-25] MEDS: lactulose 20gm/30ml cup PO SCH (10:23)
[2019-12-25] MEDS: pantoprazole 40 MG vial IV SCH (10:23)
[2019-12-25] MEDS: magnesium hydroxide 30ml (MOM) UD suspension PO PRN (10:23)
[2019-12-25] MEDS: lisinopril 20mg tablet PO SCH ×2 (10:24→20:00)
[2019-12-25] MEDS: metoprolol succinate 25mg (24-HOUR) SR. Tablet PO SCH (10:24)
[2019-12-25] MEDS: allopurinol 100mg tablet PO SCH (10:24)
[2019-12-25] MEDS: folic acid 1mg tablet PO SCH (10:24)
[2019-12-25] MEDS: thiamine 100mg tablet PO SCH (10:24)
[2019-12-25] MEDS: magnesium oxide 400mg tablet PO SCH ×3 (10:24→19:59)
[2019-12-25] MEDS: heparin, porcine 5000 units/ml vial SQ SCH ×2 (10:26→20:01)
[2019-12-25 11:00] VITALS: BP 166/93
--- NOTE | 2019-12-25 18:13 | NUR ---
Received report from primary care nurse Radha RUSSO and student RN Manasa. Assumed patient care. Patient is awake and alert on room air in no apparent distress. Call light and items of frequent use within reach. Will continue to monitor for changes. Sitter is at the bedside.
[2019-12-25 19:00] VITALS: BP 134/48
[2019-12-25] MEDS: risperiDONE 0.5mg tablet PO SCH (20:03)
[2019-12-25] MEDS: acetaminophen 325mg tablet PO PRN (21:15)
[2019-12-26] VITALS: BP 175/92
--- NOTE | 2019-12-26 00:35 | NUR ---
Patient was moving and flexing his arm the during vitals Addendum: 12/26/19 at 0037 by Lulu Porter RN Amended: Links added.
--- NOTE | 2019-12-26 06:27 | NUR ---
Reported off to Maryan RUSSO. Patient is resting with relaxed and unlabored respirations. Call light and items of frequent use within reach.
--- NOTE | 2019-12-26 06:34 | NUR ---
Patient in room IGOR 359. I have received report from Lulu RUSSO and had the opportunity to ask questions and assume patient care.
[2019-12-26 07:00] VITALS: BP 125/86
[2019-12-26] MEDS: K and/or MAG REPLACEMENT MC SCH ×2 (08:00→19:32)
[2019-12-26] MEDS: lactulose 20gm/30ml cup PO SCH ×2 (08:50→20:22)
[2019-12-26] MEDS: magnesium oxide 400mg tablet PO SCH ×5 (08:50→20:22)
[2019-12-26] MEDS: pantoprazole 40 MG vial IV SCH (08:50)
[2019-12-26] MEDS: heparin, porcine 5000 units/ml vial SQ SCH ×2 (08:50→20:22)
[2019-12-26] MEDS: lisinopril 20mg tablet PO SCH ×2 (08:51→20:23)
[2019-12-26] MEDS: metoprolol succinate 25mg (24-HOUR) SR. Tablet PO SCH (08:51)
[2019-12-26] MEDS: thiamine 100mg tablet PO SCH (08:51)
[2019-12-26] MEDS: allopurinol 100mg tablet PO SCH (08:51)
[2019-12-26] MEDS: folic acid 1mg tablet PO SCH (08:51)
[2019-12-26 11:00] VITALS: BP 81/59
--- NOTE | 2019-12-26 11:00 | NUR ---
I spoke with Dr. Sukhdeep Betts about bowel care and low BP. He added colace and increased lactulose dose to BID. He said just monitor the BP since this is the first times he has been low.
--- NOTE | 2019-12-26 14:18 | NUR ---
Patient report given to Maryan RUSSO
--- NOTE | 2019-12-26 14:18 | NUR ---
Patient in room IG[facility] 359. I have received report from RAFAELA Aragon and had the opportunity to ask questions and assume patient care.
[2019-12-26 18:00] VITALS: BP 172/89
--- NOTE | 2019-12-26 18:54 | NUR ---
Problems reprioritized. Patient report given, questions answered & plan of care reviewed with Rayna. RUSSO.
--- NOTE | 2019-12-26 18:55 | NUR ---
Patient in room IGOR 359. I have received report from RAFAELA Steinberg and had the opportunity to ask questions and assume patient care.
[2019-12-26] MEDS: docusate sodium 100mg/10ml UD cup PO SCH (20:22)
[2019-12-26] MEDS: dextrose 5%-normal saline 1,000 ML IV SCH (20:24)
[2019-12-26] MEDS: risperiDONE 0.5mg tablet PO SCH (20:26)
--- NOTE | 2019-12-27 06:27 | NUR ---
Problems reprioritized. Patient report given, questions answered & plan of care reviewed with RAFAELA Obrien.
--- NOTE | 2019-12-27 06:35 | NUR ---
Patient in room IGOR 359. I have received report from RAFAELA DONALDSON and had the opportunity to ask questions and assume patient care.
[2019-12-27] MEDS: docusate sodium 100mg/10ml UD cup PO SCH ×3 (07:59→20:31)
[2019-12-27] MEDS: metoprolol succinate 25mg (24-HOUR) SR. Tablet PO SCH (07:59)
[2019-12-27] MEDS: pantoprazole 40mg Tablet.DR PO SCH (07:59)
[2019-12-27] MEDS: lactulose 20gm/30ml cup PO SCH ×3 (07:59→20:31)
[2019-12-27] MEDS: magnesium oxide 400mg tablet PO SCH ×3 (07:59→20:32)
[2019-12-27] MEDS: lisinopril 20mg tablet PO SCH ×2 (07:59→20:32)
[2019-12-27] MEDS: allopurinol 100mg tablet PO SCH (07:59)
[2019-12-27] MEDS: folic acid 1mg tablet PO SCH (07:59)
[2019-12-27] MEDS: thiamine 100mg tablet PO SCH (07:59)
[2019-12-27] MEDS: heparin, porcine 5000 units/ml vial SQ SCH ×3 (08:00→20:31)
[2019-12-27] MEDS: K and/or MAG REPLACEMENT MC SCH ×2 (08:00→20:00)
[2019-12-27 08:15] VITALS: BP 101/65
[2019-12-27 12:32] VITALS: BP 145/82
[2019-12-27 18:00] VITALS: BP 165/98
--- NOTE | 2019-12-27 18:15 | NUR ---
Patient in room IGOR 359. I have received report from Camille RUSSO and had the opportunity to ask questions and assume patient care.
--- NOTE | 2019-12-27 18:27 | NUR ---
Patient in room [facility] 359. I have received report from RAFAELA Vo and had the opportunity to ask questions and assume patient care.
[2019-12-27] MEDS: acetaminophen 325mg tablet PO PRN (19:24)
--- NOTE | 2019-12-27 20:16 | NUR ---
alysia collected prior to shift. will continue to monitor. Addendum: 12/27/19 at 2017 by Gilda Vera RN Amended: Links added.
[2019-12-27] MEDS: risperiDONE 0.5mg tablet PO SCH (20:31)
--- NOTE | 2019-12-28 06:32 | NUR ---
Problems reprioritized. Patient report given, questions answered & plan of care reviewed with Annie RUSSO.
--- NOTE | 2019-12-28 06:37 | NUR ---
Patient in room IG[facility] 359. I have received report from Gilda RUSSO and had the opportunity to ask questions and assume patient care.
[2019-12-28 07:00] VITALS: BP 148/72
[2019-12-28] MEDS: pantoprazole 40mg Tablet.DR PO SCH (07:58)
[2019-12-28] MEDS: allopurinol 100mg tablet PO SCH (07:58)
[2019-12-28] MEDS: lactulose 20gm/30ml cup PO SCH ×2 (07:58→20:31)
[2019-12-28] MEDS: docusate sodium 100mg/10ml UD cup PO SCH ×2 (07:58→20:31)
[2019-12-28] MEDS: thiamine 100mg tablet PO SCH (07:59)
[2019-12-28] MEDS: folic acid 1mg tablet PO SCH (07:59)
[2019-12-28] MEDS: metoprolol succinate 25mg (24-HOUR) SR. Tablet PO SCH (07:59)
[2019-12-28] MEDS: lisinopril 20mg tablet PO SCH ×2 (07:59→20:31)
[2019-12-28] MEDS: magnesium oxide 400mg tablet PO SCH ×3 (07:59→20:31)
[2019-12-28] MEDS: K and/or MAG REPLACEMENT MC SCH ×2 (08:00→20:00)
[2019-12-28] MEDS: heparin, porcine 5000 units/ml vial SQ SCH ×2 (08:00→20:40)
[2019-12-28 12:23] LABS: BASOPHILS % (AUTO) 0.7 % (0-1); EOSINOPHILS # (AUTO) 0.1 X10'3 (0-0.9); EOSINOPHILS % (AUTO) 1.6 % (0-6); HEMATOCRIT 34.7 % (42.0-52.0); HEMOGLOBIN 11.6 g/dl (14.0-17.9); LYMPHOCYTES # (AUTO) 1.4 X10'3 (1.1-4.8); LYMPHOCYTES % (AUTO) 21.6 % (21-51); MEAN CORPUSCULAR HEMOGLOBIN 34.3 PG (27.0-31.0); MEAN CORPUSCULAR HGB CONC 33.6 g/dL (33.0-36.5); MEAN CORPUSCULAR VOLUME 102.3 FL (78-98); MEAN PLATELET VOLUME 9.1 FL (7.4-10.4); MONOCYTES # (AUTO) 0.6 X10'3 (0-0.9); MONOCYTES % (AUTO) 9.4 % (2-12); NEUTROPHILS # (AUTO) 4.4 X10'3 (1.8-7.7); NEUTROPHILS % (AUTO) 66.7 % (42-75); PLATELET COUNT 305 X10'3 (140-440); RED BLOOD COUNT 3.39 X10'6 (4.70-6.10); RED CELL DISTRIBUTION WIDTH 13.6 % (11.5-14.5); WHITE BLOOD COUNT 6.6 X10'3 (4.5-11.0)
[2019-12-28 12:31] LABS: ALANINE AMINOTRANSFERASE 54 U/L (12-78); ALBUMIN 2.9 G/DL (3.4-5.0); ALBUMIN/GLOBULIN RATIO 0.7 (1.1-1.5); ALKALINE PHOSPHATASE 92 IU/L (46-116); ANION GAP 4 (8-16); ASPARTATE AMINO TRANSFERASE 67 U/L (10-37); BILIRUBIN,TOTAL 0.4 MG/DL (0.1-1.0); BLOOD UREA NITROGEN 14 MG/DL (7-18); BUN/CREATININE RATIO 11.1 (5.4-32.0); CALCIUM 9.5 MG/DL (8.5-10.1); CHLORIDE 104 MMOL/L (99-107); CREATININE 1.26 MG/DL (0.60-1.10); GLUCOSE 124 MG/DL (70-104); SODIUM 140 MMOL/L (135-145); TOTAL CARBON DIOXIDE 32.4 MMOL/L (24-32); TOTAL PROTEIN 7.1 G/DL (6.4-8.2); eGFR 57 ML/MIN
--- NOTE | 2019-12-28 17:56 | NUR ---
patient had sitter. Ambulated with PT 600ft. patient appeared to have plesant affect this shift. report given to Ivet Guadalupe RN
[2019-12-28 19:36] VITALS: BP 142/82
[2019-12-28] MEDS: LORazepam 0.5 MG tablet PO PRN (20:31)
[2019-12-28] MEDS: risperiDONE 0.5mg tablet PO SCH (20:32)
--- NOTE | 2019-12-29 06:28 | NUR ---
Problems reprioritized. Patient report given, questions answered & plan of care reviewed with RAFAELA Valencia.
--- NOTE | 2019-12-29 06:38 | NUR ---
Patient in room [facility] 359. I have received report from Simran Guadalupe RN and had the opportunity to ask questions and assume patient care.
[2019-12-29 07:00] VITALS: BP 148/74
[2019-12-29] MEDS: K and/or MAG REPLACEMENT MC SCH ×2 (08:00→20:00)
[2019-12-29] MEDS: folic acid 1mg tablet PO SCH (08:27)
[2019-12-29] MEDS: magnesium oxide 400mg tablet PO SCH ×3 (08:27→22:03)
[2019-12-29] MEDS: lisinopril 20mg tablet PO SCH ×2 (08:27→22:05)
[2019-12-29] MEDS: docusate sodium 100mg/10ml UD cup PO SCH ×2 (08:27→22:06)
[2019-12-29] MEDS: lactulose 20gm/30ml cup PO SCH ×2 (08:27→22:05)
[2019-12-29] MEDS: pantoprazole 40mg Tablet.DR PO SCH (08:27)
[2019-12-29] MEDS: thiamine 100mg tablet PO SCH (08:27)
[2019-12-29] MEDS: allopurinol 100mg tablet PO SCH (08:28)
[2019-12-29] MEDS: heparin, porcine 5000 units/ml vial SQ SCH (08:28)
[2019-12-29] MEDS: LORazepam 0.5 MG tablet PO PRN ×3 (08:28→22:18)
[2019-12-29] MEDS: metoprolol succinate 25mg (24-HOUR) SR. Tablet PO SCH (08:28)
--- NOTE | 2019-12-29 11:50 | NUR ---
Requested that Dr Hedrick reorder sitter orders on patient. Also, informed Dr Hedrick that sitter orders need to be renewed by Doctor daily.
--- NOTE | 2019-12-29 17:53 | NUR ---
Sitter orders renewed. patient agitated at times given Ativan x2. pulled out IV. Seen by DR Castaneda. no new orders. sitter present.
--- NOTE | 2019-12-29 18:29 | NUR ---
Problems reprioritized. Patient report given, questions answered & plan of care reviewed with Carola RUSSO.
--- NOTE | 2019-12-29 18:30 | NUR ---
Patient in room [facility] 359. I have received report from MIGNON RUSSO and had the opportunity to ask questions and assume patient care.
[2019-12-29 20:00] VITALS: BP 175/54
[2019-12-29] MEDS: risperiDONE 0.5mg tablet PO SCH (22:05)
[2019-12-30] VITALS: BP 176/87
--- NOTE | 2019-12-30 06:30 | NUR ---
Problems reprioritized. Patient report given, questions answered & plan of care reviewed with RAJENDRA RUSSO.
[2019-12-30 07:00] VITALS: BP 136/61
[2019-12-30] MEDS: docusate sodium 100mg/10ml UD cup PO SCH ×2 (08:00→19:50)
[2019-12-30] MEDS: K and/or MAG REPLACEMENT MC SCH ×2 (08:00→20:00)
[2019-12-30] MEDS: folic acid 1mg tablet PO SCH (08:51)
[2019-12-30] MEDS: allopurinol 100mg tablet PO SCH (08:51)
[2019-12-30] MEDS: magnesium oxide 400mg tablet PO SCH ×3 (08:51→19:51)
[2019-12-30] MEDS: lisinopril 20mg tablet PO SCH ×2 (08:51→19:51)
[2019-12-30] MEDS: thiamine 100mg tablet PO SCH (08:51)
[2019-12-30] MEDS: metoprolol succinate 25mg (24-HOUR) SR. Tablet PO SCH (08:52)
[2019-12-30] MEDS: lactulose 20gm/30ml cup PO SCH ×2 (08:52→19:50)
[2019-12-30] MEDS: pantoprazole 40mg Tablet.DR PO SCH (08:52)
--- NOTE | 2019-12-30 18:23 | NUR ---
Report to Rissa Kwok RN
--- NOTE | 2019-12-30 18:37 | NUR ---
Patient is comfort care. Eating 75-100% pureed diet. Last BM 12/29. Will follow per policy. Addendum: 12/30/19 at [address] Amended: Links added.
--- NOTE | 2019-12-30 18:40 | NUR ---
Patient in room [facility] 359. I have received report from RAJENDRA RUSSO and had the opportunity to ask questions and assume patient care.
[2019-12-30] MEDS: LORazepam 0.5 MG tablet PO PRN (19:51)
[2019-12-30] MEDS: risperiDONE 0.5mg tablet PO SCH (19:51)
[2019-12-30 20:00] VITALS: BP 143/71
--- NOTE | 2019-12-31 06:21 | NUR ---
Problems reprioritized. Patient report given, questions answered & plan of care reviewed with LISA RN.
[2019-12-31] MEDS: folic acid 1mg tablet PO SCH (07:52)
[2019-12-31] MEDS: magnesium oxide 400mg tablet PO SCH ×3 (07:52→22:34)
[2019-12-31] MEDS: thiamine 100mg tablet PO SCH (07:52)
[2019-12-31] MEDS: allopurinol 100mg tablet PO SCH (07:52)
[2019-12-31] MEDS: pantoprazole 40mg Tablet.DR PO SCH (07:52)
[2019-12-31] MEDS: metoprolol succinate 25mg (24-HOUR) SR. Tablet PO SCH (07:52)
[2019-12-31] MEDS: lisinopril 20mg tablet PO SCH ×2 (07:53→22:33)
[2019-12-31] MEDS: docusate sodium 100mg/10ml UD cup PO SCH ×2 (07:54→22:33)
[2019-12-31] MEDS: lactulose 20gm/30ml cup PO SCH ×2 (07:54→22:33)
[2019-12-31 08:00] VITALS: BP 149/78
[2019-12-31] MEDS: K and/or MAG REPLACEMENT MC SCH ×2 (08:00→20:00)
[2019-12-31] MEDS: LORazepam 0.5 MG tablet PO PRN ×2 (15:59→22:33)
--- NOTE | 2019-12-31 18:14 | NUR ---
Problems reprioritized. Patient report given, questions answered & plan of care reviewed with Rissa Kwok RN.
--- NOTE | 2019-12-31 18:30 | NUR ---
Patient in room [facility] 359. I have received report from LISA RUSSO and had the opportunity to ask questions and assume patient care.
[2019-12-31 20:00] VITALS: BP 171/75
[2019-12-31] MEDS: risperiDONE 0.5mg tablet PO SCH (22:32)
--- NOTE | 2020-01-01 06:00 | NUR ---
Patient in room [facility] 359. I have received report from Rissa gaspar RN and had the opportunity to ask questions and assume patient care.
[2020-01-01 07:00] VITALS: BP 133/55
[2020-01-01] MEDS: metoprolol succinate 25mg (24-HOUR) SR. Tablet PO SCH (08:00)
[2020-01-01] MEDS: K and/or MAG REPLACEMENT MC SCH ×2 (08:00→20:00)
[2020-01-01] MEDS: lactulose 20gm/30ml cup PO SCH ×2 (08:49→20:30)
[2020-01-01] MEDS: docusate sodium 100mg/10ml UD cup PO SCH ×2 (08:49→20:30)
[2020-01-01] MEDS: lisinopril 20mg tablet PO SCH ×2 (08:49→20:38)
[2020-01-01] MEDS: magnesium oxide 400mg tablet PO SCH ×3 (08:50→20:30)
[2020-01-01] MEDS: allopurinol 100mg tablet PO SCH (08:50)
[2020-01-01] MEDS: folic acid 1mg tablet PO SCH (08:50)
[2020-01-01] MEDS: thiamine 100mg tablet PO SCH (08:50)
[2020-01-01] MEDS: pantoprazole 40mg Tablet.DR PO SCH (08:50)
[2020-01-01] MEDS: LORazepam 0.5 MG tablet PO PRN (08:51)
[2020-01-01 12:00] VITALS: BP 124/72
[2020-01-01 18:00] VITALS: BP 145/62
--- NOTE | 2020-01-01 18:15 | NUR ---
Patient in room IGOR 359. I have received report from Kelly RUSSO and had the opportunity to ask questions and assume patient care.
--- NOTE | 2020-01-01 18:19 | NUR ---
Problems reprioritized. Patient report given, questions answered & plan of care reviewed with RAFAELA Goel.
[2020-01-01] MEDS: risperiDONE 0.5mg tablet PO SCH (20:39)
--- NOTE | 2020-01-02 06:30 | NUR ---
Patient in room [facility] 359. I have received report from Manasa RUSSO and had the opportunity to ask questions and assume patient care.
--- NOTE | 2020-01-02 06:39 | NUR ---
Problems reprioritized. Patient report given, questions answered & plan of care reviewed with Nilsa RUSSO.
[2020-01-02 07:00] VITALS: BP 138/83
[2020-01-02] MEDS: K and/or MAG REPLACEMENT MC SCH ×2 (08:00→19:38)
[2020-01-02] MEDS: pantoprazole 40mg Tablet.DR PO SCH (08:55)
[2020-01-02] MEDS: lactulose 20gm/30ml cup PO SCH ×2 (08:55→20:38)
[2020-01-02] MEDS: docusate sodium 100mg/10ml UD cup PO SCH ×2 (08:55→20:39)
[2020-01-02] MEDS: thiamine 100mg tablet PO SCH (08:55)
[2020-01-02] MEDS: metoprolol succinate 25mg (24-HOUR) SR. Tablet PO SCH (08:56)
[2020-01-02] MEDS: allopurinol 100mg tablet PO SCH (08:57)
[2020-01-02] MEDS: folic acid 1mg tablet PO SCH (08:57)
[2020-01-02] MEDS: magnesium oxide 400mg tablet PO SCH ×3 (08:57→20:38)
[2020-01-02] MEDS: lisinopril 20mg tablet PO SCH ×2 (08:57→20:44)
[2020-01-02 11:00] VITALS: BP 103/72
[2020-01-02 18:15] VITALS: BP 142/51
--- NOTE | 2020-01-02 18:15 | NUR ---
Patient in room [facility] 359. I have received report from RAFAELA Ash and had the opportunity to ask questions and assume patient care.
--- NOTE | 2020-01-02 18:36 | NUR ---
Problems reprioritized. Patient report given, questions answered & plan of care reviewed with Addis RUSSO.
[2020-01-02] MEDS: risperiDONE 0.5mg tablet PO SCH (20:39)
--- NOTE | 2020-01-03 06:30 | NUR ---
Patient in room [facility] 359. I have received report from Addis RUSSO and had the opportunity to ask questions and assume patient care.
--- NOTE | 2020-01-03 06:36 | NUR ---
Problems reprioritized. Patient report given, questions answered & plan of care reviewed with RAFAELA Ash.
[2020-01-03 07:00] VITALS: BP 148/64
[2020-01-03] MEDS: thiamine 100mg tablet PO SCH (08:00)
[2020-01-03] MEDS: lisinopril 20mg tablet PO SCH ×2 (08:00→20:50)
[2020-01-03] MEDS: K and/or MAG REPLACEMENT MC SCH ×2 (08:00→19:24)
[2020-01-03] MEDS: docusate sodium 100mg/10ml UD cup PO SCH ×2 (10:05→20:00)
[2020-01-03] MEDS: lactulose 20gm/30ml cup PO SCH ×2 (10:05→20:50)
[2020-01-03] MEDS: pantoprazole 40mg Tablet.DR PO SCH (10:06)
[2020-01-03] MEDS: allopurinol 100mg tablet PO SCH (10:06)
[2020-01-03] MEDS: folic acid 1mg tablet PO SCH (10:06)
[2020-01-03] MEDS: metoprolol succinate 25mg (24-HOUR) SR. Tablet PO SCH (10:07)
[2020-01-03] MEDS: magnesium oxide 400mg tablet PO SCH ×3 (10:07→20:51)
[2020-01-03 11:00] VITALS: BP 118/69
--- NOTE | 2020-01-03 11:55 | NUR ---
Per Dr. Caceres patient still need sitter order at this time. Patient has dementia, will not follow safety instruction, he is at high risk for fall, and will attempt to get up from bed
--- NOTE | 2020-01-03 17:47 | NUR ---
Helder reported patient getting agitated and patient was trying to hit her with the hospital phone patient holding. Redirected patient back to his room and ask patient not to hit the aide or anyone. I took the phone away from the patient for staff's safety. Patient need redirection and reassurance, still confused.
--- NOTE | 2020-01-03 18:13 | NUR ---
Problems reprioritized. Patient report given, questions answered & plan of care reviewed with Addis RUSSO.
--- NOTE | 2020-01-03 18:15 | NUR ---
Patient in room [facility] 359. I have received report from RAFAELA Ash and had the opportunity to ask questions and assume patient care.
[2020-01-03] MEDS: risperiDONE 0.5mg tablet PO SCH (20:51)
[2020-01-04] MEDS: LORazepam 0.5 MG tablet PO PRN ×3 (01:41→22:52)
[2020-01-04 02:40] VITALS: BP 152/44
--- NOTE | 2020-01-04 06:28 | NUR ---
Patient in room [facility] 359. I have received report from Addis RUSSO and had the opportunity to ask questions and assume patient care.
--- NOTE | 2020-01-04 06:30 | NUR ---
Problems reprioritized. Patient report given, questions answered & plan of care reviewed with RAFAELA Hunter.
[2020-01-04 07:00] VITALS: BP 124/61
[2020-01-04] MEDS: K and/or MAG REPLACEMENT MC SCH ×2 (08:00→20:00)
[2020-01-04] MEDS: lisinopril 20mg tablet PO SCH ×2 (08:16→22:52)
[2020-01-04] MEDS: magnesium oxide 400mg tablet PO SCH ×3 (08:16→22:52)
[2020-01-04] MEDS: pantoprazole 40mg Tablet.DR PO SCH (08:16)
[2020-01-04] MEDS: allopurinol 100mg tablet PO SCH (08:17)
[2020-01-04] MEDS: thiamine 100mg tablet PO SCH (08:17)
[2020-01-04] MEDS: metoprolol succinate 25mg (24-HOUR) SR. Tablet PO SCH (08:17)
[2020-01-04] MEDS: folic acid 1mg tablet PO SCH (08:18)
[2020-01-04] MEDS: docusate sodium 100mg/10ml UD cup PO SCH ×2 (08:18→20:00)
[2020-01-04] MEDS: lactulose 20gm/30ml cup PO SCH ×2 (08:18→20:00)
--- NOTE | 2020-01-04 18:47 | NUR ---
Problems reprioritized. Patient report given, questions answered & plan of care reviewed with Scott RUSSO.
[2020-01-04 20:00] VITALS: BP 126/81
[2020-01-04] MEDS: risperiDONE 0.5mg tablet PO SCH (22:52)
--- NOTE | 2020-01-05 07:03 | NUR ---
Patient in room [facility] 359. I have received report from Scott RUSSO and had the opportunity to ask questions and assume patient care.
[2020-01-05 08:00] VITALS: BP 148/58
[2020-01-05] MEDS: K and/or MAG REPLACEMENT MC SCH ×2 (08:00→20:00)
[2020-01-05] MEDS: lactulose 20gm/30ml cup PO SCH ×2 (08:22→22:34)
[2020-01-05] MEDS: pantoprazole 40mg Tablet.DR PO SCH (08:22)
[2020-01-05] MEDS: docusate sodium 100mg/10ml UD cup PO SCH ×2 (08:22→22:34)
[2020-01-05] MEDS: thiamine 100mg tablet PO SCH (08:23)
[2020-01-05] MEDS: magnesium oxide 400mg tablet PO SCH ×3 (08:23→22:34)
[2020-01-05] MEDS: metoprolol succinate 25mg (24-HOUR) SR. Tablet PO SCH (08:23)
[2020-01-05] MEDS: folic acid 1mg tablet PO SCH (08:23)
[2020-01-05] MEDS: lisinopril 20mg tablet PO SCH ×2 (08:24→20:00)
[2020-01-05] MEDS: allopurinol 100mg tablet PO SCH (08:24)
[2020-01-05 11:00] VITALS: BP 140/63
[2020-01-05] MEDS: LORazepam 0.5 MG tablet PO PRN ×2 (16:07→23:16)
--- NOTE | 2020-01-05 18:04 | NUR ---
Problems reprioritized. Patient report given, questions answered & plan of care reviewed with Scott RUSSO.
[2020-01-05] MEDS: risperiDONE 0.5mg tablet PO SCH (22:36)
--- NOTE | 2020-01-06 06:20 | NUR ---
Patient in room [facility] 359. I have received report from RAFAELA Chavez and had the opportunity to ask questions and assume patient care.
[2020-01-06 07:00] VITALS: BP 122/50
[2020-01-06] MEDS: K and/or MAG REPLACEMENT MC SCH ×2 (08:00→20:00)
--- NOTE | 2020-01-06 09:09 | NUR ---
Reassessment: Pt continues averaging 75-100% PO intake with some 50% PO intake. [facility] 01/04. Will continue to follow per comfort care measures. Recommendations: 1) Bowel care per comfort care measures Addendum: 01/06/20 at [address] Amended: Links added.
[2020-01-06] MEDS: magnesium oxide 400mg tablet PO SCH ×3 (09:11→20:08)
[2020-01-06] MEDS: docusate sodium 100mg/10ml UD cup PO SCH ×2 (09:11→20:00)
[2020-01-06] MEDS: lactulose 20gm/30ml cup PO SCH ×2 (09:11→20:00)
[2020-01-06] MEDS: thiamine 100mg tablet PO SCH (09:12)
[2020-01-06] MEDS: metoprolol succinate 25mg (24-HOUR) SR. Tablet PO SCH (09:12)
[2020-01-06] MEDS: folic acid 1mg tablet PO SCH (09:14)
[2020-01-06] MEDS: allopurinol 100mg tablet PO SCH (09:14)
[2020-01-06] MEDS: pantoprazole 40mg Tablet.DR PO SCH (09:14)
[2020-01-06] MEDS: lisinopril 20mg tablet PO SCH ×2 (09:14→20:08)
[2020-01-06 12:00] VITALS: BP 125/74
--- NOTE | 2020-01-06 18:10 | NUR ---
Problems reprioritized. Patient report given, questions answered & plan of care reviewed with RAFAELA Chavez.
[2020-01-06 20:00] VITALS: BP 163/83
[2020-01-06] MEDS: risperiDONE 0.5mg tablet PO SCH (20:09)
[2020-01-06] MEDS: LORazepam 0.5 MG tablet PO PRN (23:19)
--- NOTE | 2020-01-07 06:14 | NUR ---
Patient in room [facility] 359. I have received report from RAFAELA AGUIAR and had the opportunity to ask questions and assume patient care.
[2020-01-07 07:00] VITALS: BP 160/89
[2020-01-07] MEDS: K and/or MAG REPLACEMENT MC SCH ×2 (08:00→20:00)
[2020-01-07] MEDS: allopurinol 100mg tablet PO SCH (09:42)
[2020-01-07] MEDS: metoprolol succinate 25mg (24-HOUR) SR. Tablet PO SCH (09:42)
[2020-01-07] MEDS: magnesium oxide 400mg tablet PO SCH ×3 (09:43→20:00)
[2020-01-07] MEDS: pantoprazole 40mg Tablet.DR PO SCH (09:43)
[2020-01-07] MEDS: lisinopril 20mg tablet PO SCH ×2 (09:43→20:00)
[2020-01-07] MEDS: thiamine 100mg tablet PO SCH (09:43)
[2020-01-07] MEDS: docusate sodium 100mg/10ml UD cup PO SCH ×2 (09:44→20:00)
[2020-01-07] MEDS: lactulose 20gm/30ml cup PO SCH ×2 (09:44→20:00)
[2020-01-07] MEDS: folic acid 1mg tablet PO SCH (09:45)
[2020-01-07 11:00] VITALS: BP 143/93
[2020-01-07] MEDS: LORazepam 0.5 MG tablet PO PRN (18:05)
--- NOTE | 2020-01-07 19:01 | NUR ---
Problems reprioritized. Patient report given, questions answered & plan of care reviewed with RAFAELA BROUSSARD.
[2020-01-07] MEDS ORDERED: haloperidol lactate 5mg/ml inj IM ONE (19:05)
[2020-01-07] MEDS: risperiDONE 0.5mg tablet PO SCH (21:00)
--- NOTE | 2020-01-07 21:26 | NUR ---
Patient in room [facility] 359. I have received report from RAFAELA Rosario and had the opportunity to ask questions and assume patient care. Addendum: 01/07/20 at 2127 by Gayle Mckenna RN Amended: Links added.
--- NOTE | 2020-01-07 22:55 | NUR ---
pt. very agitated and resistive to care at beginning of shift. call to md for orders with order received.
[2020-01-08 00:13] VITALS: BP 131/78
--- NOTE | 2020-01-08 06:16 | NUR ---
Problems reprioritized. Patient report given, questions answered & plan of care reviewed with RAFAELA Obrien. Addendum: 01/08/20 at 0617 by Gayle Mckenna RN Amended: Links added.
--- NOTE | 2020-01-08 06:38 | NUR ---
Patient in room [facility] 359. I have received report from RAFAELA ARELLANO and had the opportunity to ask questions and assume patient care.
[2020-01-08] MEDS: thiamine 100mg tablet PO SCH (07:53)
[2020-01-08] MEDS: allopurinol 100mg tablet PO SCH (07:53)
[2020-01-08] MEDS: docusate sodium 100mg/10ml UD cup PO SCH ×2 (07:54→20:00)
[2020-01-08] MEDS: lisinopril 20mg tablet PO SCH ×2 (07:54→19:12)
[2020-01-08] MEDS: folic acid 1mg tablet PO SCH (07:54)
[2020-01-08] MEDS: magnesium oxide 400mg tablet PO SCH ×3 (07:54→19:12)
[2020-01-08] MEDS: pantoprazole 40mg Tablet.DR PO SCH (07:54)
[2020-01-08] MEDS: lactulose 20gm/30ml cup PO SCH ×2 (07:54→20:00)
[2020-01-08] MEDS: metoprolol succinate 25mg (24-HOUR) SR. Tablet PO SCH (07:54)
[2020-01-08] MEDS: K and/or MAG REPLACEMENT MC SCH ×2 (08:00→20:00)
[2020-01-08 08:54] VITALS: BP 140/64
--- NOTE | 2020-01-08 10:52 | NUR ---
Patient in bed pleasant and cooperative with sitter at bedside. No need for restraints at this time. Restraints maddy UE released.
--- NOTE | 2020-01-08 11:34 | NUR ---
Retraints released. No restraints needed at this time. Sitter is at patient's bedside.
[2020-01-08 12:56] VITALS: BP 141/73
--- NOTE | 2020-01-08 18:56 | NUR ---
Patient in room IGOR 359. I have received report from RAFAELA Obrien and had the opportunity to ask questions and assume patient care. Addendum: 01/08/20 at 1857 by Gayle Mckenna RN Amended: Links added.
[2020-01-08] MEDS: LORazepam 0.5 MG tablet PO PRN (19:11)
[2020-01-08] MEDS: risperiDONE 0.5mg tablet PO SCH (19:12)
[2020-01-08 20:00] VITALS: BP 148/76
--- NOTE | 2020-01-08 20:10 | NUR ---
pt refused to have vitals taken Addendum: 01/08/20 at 2010 by Gayle Mckenna RN Amended: Links added.
--- NOTE | 2020-01-08 21:26 | NUR ---
Problems reprioritized. Patient report given, questions answered & plan of care reviewed with RAFAELA Srivastava. Addendum: 01/08/20 at 6 by Gayle Mckenna RN Amended: Links added.
--- NOTE | 2020-01-08 22:00 | NUR ---
Patient in room [facility] 359. I have received report from MARKY RUSSO and had the opportunity to ask questions and assume patient care.
--- NOTE | 2020-01-09 06:30 | NUR ---
Problems reprioritized. Patient report given, questions answered & plan of care reviewed with BELTRAN RUSSO. PATIENT MOVING TO ORTHO NEURO, PATIENT REPORT GIVEN TO BENNETT RUSSO.
[2020-01-09] MEDS: K and/or MAG REPLACEMENT MC SCH ×2 (08:00→20:00)
[2020-01-09] MEDS: pantoprazole 40mg Tablet.DR PO SCH (08:55)
[2020-01-09] MEDS: lactulose 20gm/30ml cup PO SCH ×2 (08:55→20:51)
[2020-01-09] MEDS: docusate sodium 100mg/10ml UD cup PO SCH ×2 (08:55→20:51)
[2020-01-09] MEDS: magnesium oxide 400mg tablet PO SCH ×3 (08:56→20:51)
[2020-01-09] MEDS: folic acid 1mg tablet PO SCH (08:56)
[2020-01-09] MEDS: lisinopril 20mg tablet PO SCH ×2 (08:56→20:59)
[2020-01-09] MEDS: thiamine 100mg tablet PO SCH (08:56)
[2020-01-09] MEDS: metoprolol succinate 25mg (24-HOUR) SR. Tablet PO SCH (08:56)
[2020-01-09] MEDS: allopurinol 100mg tablet PO SCH (08:56)
--- NOTE | 2020-01-09 14:04 | NUR ---
attempt to wean sitter failed. Pt is wandering and somewhat unsteady on his feet.
[2020-01-09] MEDS: LORazepam 0.5 MG tablet PO PRN (15:25)
[2020-01-09 18:00] VITALS: BP 149/75
[2020-01-09] MEDS: risperiDONE 0.5mg tablet PO SCH (20:51)
[2020-01-09 22:00] VITALS: BP 132/65
--- NOTE | 2020-01-10 06:27 | NUR ---
Problems reprioritized. Patient report given, questions answered & plan of care reviewed with Radha RUSSO.
[2020-01-10] MEDS: lactulose 20gm/30ml cup PO SCH ×2 (08:00→20:53)
[2020-01-10] MEDS: K and/or MAG REPLACEMENT MC SCH ×2 (08:00→20:00)
[2020-01-10] MEDS: docusate sodium 100mg/10ml UD cup PO SCH ×2 (08:00→20:53)
[2020-01-10 08:21] VITALS: BP 129/54
[2020-01-10] MEDS: metoprolol succinate 25mg (24-HOUR) SR. Tablet PO SCH (08:23)
[2020-01-10] MEDS: thiamine 100mg tablet PO SCH (08:23)
[2020-01-10] MEDS: magnesium oxide 400mg tablet PO SCH ×3 (08:23→20:53)
[2020-01-10] MEDS: lisinopril 20mg tablet PO SCH ×2 (08:23→20:53)
[2020-01-10] MEDS: allopurinol 100mg tablet PO SCH (08:23)
[2020-01-10] MEDS: pantoprazole 40mg Tablet.DR PO SCH (08:23)
[2020-01-10] MEDS: folic acid 1mg tablet PO SCH (08:23)
--- NOTE | 2020-01-10 08:55 | NUR ---
pt is a/o x1. he is pleasantly confused. Reorientation seems to help. He appears calm and amicable today and is performing own ADLs with assistance and prompting. Mostly continent. He needs supervision at all times as he does tend to wander and is a fall risk.
[2020-01-10] MEDS: LORazepam 0.5 MG tablet PO PRN (15:38)
[2020-01-10 18:00] VITALS: BP 156/76
--- NOTE | 2020-01-10 18:10 | NUR ---
Patient in room ORTHO 4007. I have received report from Diamond RUSSO and had the opportunity to ask questions and assume patient care.
--- NOTE | 2020-01-10 18:17 | NUR ---
Problems reprioritized. Patient report given, questions answered & plan of care reviewed with Kavya RUSSO.
[2020-01-10] MEDS: risperiDONE 0.5mg tablet PO SCH (20:52)
[2020-01-10 22:00] VITALS: BP 156/64
--- NOTE | 2020-01-11 06:10 | NUR ---
Problems reprioritized. Patient report given, questions answered & plan of care reviewed with Hellen RUSSO.
--- NOTE | 2020-01-11 06:29 | NUR ---
Received report from Brionna RUSSO
[2020-01-11] MEDS: lactulose 20gm/30ml cup PO SCH ×2 (07:16→21:49)
[2020-01-11] MEDS: docusate sodium 100mg/10ml UD cup PO SCH ×2 (07:16→21:49)
[2020-01-11] MEDS: magnesium oxide 400mg tablet PO SCH ×3 (07:31→21:49)
[2020-01-11] MEDS: metoprolol succinate 25mg (24-HOUR) SR. Tablet PO SCH (07:31)
[2020-01-11] MEDS: pantoprazole 40mg Tablet.DR PO SCH (07:31)
[2020-01-11] MEDS: lisinopril 20mg tablet PO SCH ×2 (07:31→21:53)
[2020-01-11] MEDS: folic acid 1mg tablet PO SCH (07:31)
[2020-01-11] MEDS: thiamine 100mg tablet PO SCH (07:31)
[2020-01-11] MEDS: allopurinol 100mg tablet PO SCH (07:31)
[2020-01-11] MEDS: K and/or MAG REPLACEMENT MC SCH ×2 (08:00→20:00)
[2020-01-11 11:00] VITALS: BP 134/73
[2020-01-11 18:00] VITALS: BP 153/71
[2020-01-11] MEDS: risperiDONE 0.5mg tablet PO SCH (21:50)
[2020-01-11 22:00] VITALS: BP 137/54
--- NOTE | 2020-01-12 06:20 | NUR ---
Problems reprioritized. Patient report given, questions answered & plan of care reviewed with RAFAELA TONEY.
--- NOTE | 2020-01-12 06:41 | NUR ---
rECEIVED REPORT FROM LUTHER RUSSO
[2020-01-12 07:00] VITALS: BP 131/57
[2020-01-12] MEDS: K and/or MAG REPLACEMENT MC SCH ×2 (08:00→20:00)
[2020-01-12] MEDS: docusate sodium 100mg/10ml UD cup PO SCH ×2 (08:00→20:07)
[2020-01-12] MEDS: thiamine 100mg tablet PO SCH (08:48)
[2020-01-12] MEDS: magnesium oxide 400mg tablet PO SCH ×3 (08:48→20:09)
[2020-01-12] MEDS: lisinopril 20mg tablet PO SCH ×2 (08:48→20:08)
[2020-01-12] MEDS: lactulose 20gm/30ml cup PO SCH ×2 (08:48→20:06)
[2020-01-12] MEDS: metoprolol succinate 25mg (24-HOUR) SR. Tablet PO SCH (08:48)
[2020-01-12] MEDS: folic acid 1mg tablet PO SCH (08:48)
[2020-01-12] MEDS: pantoprazole 40mg Tablet.DR PO SCH (08:48)
[2020-01-12] MEDS: allopurinol 100mg tablet PO SCH (08:51)
--- NOTE | 2020-01-12 18:23 | NUR ---
Patient in room ORTHO 4014. I have received report from Hellen RUSSO and had the opportunity to ask questions and assume patient care.
[2020-01-12] MEDS: risperiDONE 0.5mg tablet PO SCH (21:00)
[2020-01-12 22:05] VITALS: BP 135/54
[2020-01-13 06:00] VITALS: BP 138/58
--- NOTE | 2020-01-13 06:05 | NUR ---
received report from kriss rn
--- NOTE | 2020-01-13 07:00 | NUR ---
weaning pt off sitter, currently pt does not have sitter, pt in view of nursing station w/tabs and bed alarm intact
[2020-01-13] MEDS: K and/or MAG REPLACEMENT MC SCH ×2 (07:31→20:00)
[2020-01-13] MEDS: docusate sodium 100mg/10ml UD cup PO SCH ×2 (07:39→20:04)
[2020-01-13] MEDS: pantoprazole 40mg Tablet.DR PO SCH (07:39)
[2020-01-13] MEDS: lactulose 20gm/30ml cup PO SCH ×2 (07:39→20:03)
[2020-01-13] MEDS: thiamine 100mg tablet PO SCH (07:40)
[2020-01-13] MEDS: allopurinol 100mg tablet PO SCH (07:40)
[2020-01-13] MEDS: folic acid 1mg tablet PO SCH (07:40)
[2020-01-13] MEDS: magnesium oxide 400mg tablet PO SCH ×3 (07:40→20:04)
[2020-01-13] MEDS: metoprolol succinate 25mg (24-HOUR) SR. Tablet PO SCH (07:41)
[2020-01-13] MEDS: lisinopril 20mg tablet PO SCH ×2 (07:41→20:04)
[2020-01-13] MEDS: LORazepam 0.5 MG tablet PO PRN (15:36)
--- NOTE | 2020-01-13 18:07 | NUR ---
gave report to joao monterroso pt does not have a sitter at this time and did not have a sitter for this entire shift
[2020-01-13] MEDS: risperiDONE 0.5mg tablet PO SCH (20:05)
[2020-01-13 22:00] VITALS: BP 160/70
[2020-01-14] MEDS: LORazepam 0.5 MG tablet PO PRN ×4 (02:07→21:46)
--- NOTE | 2020-01-14 02:47 | NUR ---
MESSAGE: Sukhdeep Hoang [phone] [phone] Admit for ALOC extremely agitated tonight walking from room to room gave him his 0.5 mg Ativan and its not calming him need to increase dose or something stronger. #[id number] Sai RUSSO
[2020-01-14] MEDS ORDERED: ziprasidone IM 20mg inj **IM only IM ONE (02:50)
[2020-01-14] MEDS ORDERED: diphenhydrAMINE 50 mg/ml inj IV ONE (02:50)
[2020-01-14] MEDS ORDERED: diphenhydrAMINE 25mg capsule PO ONE (03:15)
--- NOTE | 2020-01-14 06:30 | NUR ---
Patient in room ORTHO 4010A. I have received report from RAFAELA Purcell and had the opportunity to ask questions and assume patient care.
--- NOTE | 2020-01-14 07:00 | NUR ---
Pt becoming more restless. Aide walked around the floor and assisted back to bed.
[2020-01-14] MEDS: lisinopril 20mg tablet PO SCH ×2 (08:00→20:00)
[2020-01-14] MEDS: K and/or MAG REPLACEMENT MC SCH ×2 (08:00→20:00)
[2020-01-14] MEDS: docusate sodium 100mg/10ml UD cup PO SCH ×2 (08:00→19:45)
[2020-01-14] MEDS: thiamine 100mg tablet PO SCH (08:57)
[2020-01-14] MEDS: allopurinol 100mg tablet PO SCH (08:58)
[2020-01-14] MEDS: metoprolol succinate 25mg (24-HOUR) SR. Tablet PO SCH (08:58)
[2020-01-14] MEDS: pantoprazole 40mg Tablet.DR PO SCH (08:59)
[2020-01-14] MEDS: folic acid 1mg tablet PO SCH (09:00)
[2020-01-14] MEDS: magnesium oxide 400mg tablet PO SCH ×3 (09:00→20:00)
[2020-01-14] MEDS: lactulose 20gm/30ml cup PO SCH ×2 (09:01→20:00)
[2020-01-14 17:00] VITALS: BP 150/78
[2020-01-14 17:09] VITALS: BP 150/78
--- NOTE | 2020-01-14 18:17 | NUR ---
Problems reprioritized. Patient report given, questions answered & plan of care reviewed with RAFAELA Gibbs.
[2020-01-14] MEDS: risperiDONE 0.5mg tablet PO SCH (21:00)
[2020-01-14] MEDS ORDERED: diphenhydrAMINE 50 mg/ml inj IV PRN (23:00)
[2020-01-14] MEDS: diphenhydrAMINE 25mg capsule PO PRN (23:52)
--- NOTE | 2020-01-15 06:00 | NUR ---
Patient in room ORTHO 4008. I have received report from WALDO RUSSO and had the opportunity to ask questions and assume patient care.
--- NOTE | 2020-01-15 06:17 | NUR ---
Problems reprioritized. Patient report given, questions answered & plan of care reviewed with Marylou RUSSO.
[2020-01-15 07:49] VITALS: BP 150/76
[2020-01-15] MEDS: pantoprazole 40mg Tablet.DR PO SCH (07:50)
[2020-01-15] MEDS: folic acid 1mg tablet PO SCH (07:50)
[2020-01-15] MEDS: lactulose 20gm/30ml cup PO SCH ×2 (07:50→19:47)
[2020-01-15] MEDS: magnesium oxide 400mg tablet PO SCH ×3 (07:51→19:47)
[2020-01-15] MEDS: LORazepam 0.5 MG tablet PO PRN ×2 (07:51→16:51)
[2020-01-15] MEDS: thiamine 100mg tablet PO SCH (07:51)
[2020-01-15] MEDS: metoprolol succinate 25mg (24-HOUR) SR. Tablet PO SCH (07:51)
[2020-01-15] MEDS: docusate sodium 100mg/10ml UD cup PO SCH ×2 (07:51→19:47)
[2020-01-15] MEDS: lisinopril 20mg tablet PO SCH ×2 (07:52→19:48)
[2020-01-15] MEDS: allopurinol 100mg tablet PO SCH (07:52)
[2020-01-15 18:00] VITALS: BP 163/80
--- NOTE | 2020-01-15 18:00 | NUR ---
Problems reprioritized. Patient report given, questions answered & plan of care reviewed with DARREN RUSSO.
[2020-01-15] MEDS: risperiDONE 0.5mg tablet PO SCH (19:56)
[2020-01-15] MEDS: diphenhydrAMINE 25mg capsule PO PRN (20:50)
--- NOTE | 2020-01-16 06:00 | NUR ---
Patient in room ORTHO 4008. I have received report from DARREN RUSSO and had the opportunity to ask questions and assume patient care.
--- NOTE | 2020-01-16 06:13 | NUR ---
Problems reprioritized. Patient report given, questions answered & plan of care reviewed with RAFAELA Hickman.
[2020-01-16] MEDS: lactulose 20gm/30ml cup PO SCH ×2 (07:25→19:41)
[2020-01-16] MEDS: folic acid 1mg tablet PO SCH (07:25)
[2020-01-16] MEDS: docusate sodium 100mg/10ml UD cup PO SCH ×2 (07:25→18:39)
[2020-01-16] MEDS: lisinopril 20mg tablet PO SCH ×2 (07:25→19:41)
[2020-01-16] MEDS: pantoprazole 40mg Tablet.DR PO SCH (07:25)
[2020-01-16] MEDS: allopurinol 100mg tablet PO SCH (07:25)
[2020-01-16] MEDS: thiamine 100mg tablet PO SCH (07:25)
[2020-01-16] MEDS: metoprolol succinate 25mg (24-HOUR) SR. Tablet PO SCH (07:26)
[2020-01-16] MEDS: magnesium oxide 400mg tablet PO SCH ×3 (07:26→19:41)
[2020-01-16 10:00] VITALS: BP 140/65
--- NOTE | 2020-01-16 11:15 | NUR ---
Reassessment: Pt continues meeting nutrient needs with documented 75-100% PO intake. [facility] 01/13, receiving routine bowel care. Pt continues awaiting placement. Remains DNR with comfort care. Will continue to follow per LOS. Recommendations: 1) Bowel care per comfort care measures Addendum: 01/16/20 at [address] Amended: Links added.
[2020-01-16] MEDS: LORazepam 0.5 MG tablet PO PRN (15:36)
--- NOTE | 2020-01-16 18:00 | NUR ---
Problems reprioritized. Patient report given, questions answered & plan of care reviewed with DARREN RUSSO.
[2020-01-16] MEDS: risperiDONE 0.5mg tablet PO SCH (19:41)
[2020-01-16] MEDS: diphenhydrAMINE 25mg capsule PO PRN (21:57)
--- NOTE | 2020-01-17 04:38 | NUR ---
Patient not needing a sitter at this time, he is easy to redirect and is stable on his feet. Needs to have bed alarm on and close to the nurse's station to be observed for possible wandering.
--- NOTE | 2020-01-17 06:17 | NUR ---
Problems reprioritized. Patient report given, questions answered & plan of care reviewed with RAFAELA Hickman.
[2020-01-17 07:52] VITALS: BP 120/60
[2020-01-17] MEDS: metoprolol succinate 25mg (24-HOUR) SR. Tablet PO SCH (07:53)
[2020-01-17] MEDS: pantoprazole 40mg Tablet.DR PO SCH (07:53)
[2020-01-17] MEDS: magnesium oxide 400mg tablet PO SCH ×3 (07:53→20:45)
[2020-01-17] MEDS: allopurinol 100mg tablet PO SCH (07:53)
[2020-01-17] MEDS: thiamine 100mg tablet PO SCH (07:54)
[2020-01-17] MEDS: lactulose 20gm/30ml cup PO SCH (07:54)
[2020-01-17] MEDS: folic acid 1mg tablet PO SCH (07:54)
[2020-01-17] MEDS: lisinopril 20mg tablet PO SCH ×2 (07:54→20:43)
[2020-01-17] MEDS: docusate sodium 100mg/10ml UD cup PO SCH (07:55)
[2020-01-17] MEDS: LORazepam 0.5 MG tablet PO PRN (15:59)
--- NOTE | 2020-01-17 18:10 | NUR ---
Problems reprioritized. Patient report given, questions answered & plan of care reviewed with MARC RUSSO.
--- NOTE | 2020-01-17 18:37 | NUR ---
Patient in room IGOR 359. I have received report from Marylou RUSSO and had the opportunity to ask questions and assume patient care.
[2020-01-17 20:00] VITALS: BP 135/69
[2020-01-17] MEDS: docusate sod 100mg capsule PO SCH (20:43)
[2020-01-17] MEDS: risperiDONE 0.5mg tablet PO SCH (20:44)
[2020-01-18 06:00] VITALS: BP 164/56
--- NOTE | 2020-01-18 06:24 | NUR ---
Problems reprioritized. Patient report given, questions answered & plan of care reviewed with KAILASH RUSSO.
--- NOTE | 2020-01-18 06:42 | NUR ---
Patient in room IGOR 359. I have received report from Sharyn RUSSO and had the opportunity to ask questions and assume patient care.
[2020-01-18] MEDS: metoprolol succinate 25mg (24-HOUR) SR. Tablet PO SCH (07:59)
[2020-01-18] MEDS: folic acid 1mg tablet PO SCH (07:59)
[2020-01-18] MEDS: allopurinol 100mg tablet PO SCH (07:59)
[2020-01-18] MEDS: pantoprazole 40mg Tablet.DR PO SCH (07:59)
[2020-01-18] MEDS: thiamine 100mg tablet PO SCH (07:59)
[2020-01-18] MEDS: magnesium oxide 400mg tablet PO SCH ×3 (07:59→20:06)
[2020-01-18] MEDS: docusate sod 100mg capsule PO SCH ×2 (07:59→20:06)
[2020-01-18] MEDS: lisinopril 20mg tablet PO SCH ×2 (08:00→20:09)
[2020-01-18 11:00] VITALS: BP 142/81
[2020-01-18] MEDS ORDERED: furosemide 20MG tablet PO ONE (13:40)
--- NOTE | 2020-01-18 18:31 | NUR ---
Problems reprioritized. Patient report given, questions answered & plan of care reviewed with Sharyn RUSSO.
--- NOTE | 2020-01-18 19:07 | NUR ---
Patient in room IGOR 359. I have received report from KAILASH RUSSO and had the opportunity to ask questions and assume patient care.
[2020-01-18] MEDS: LORazepam 0.5 MG tablet PO PRN (19:24)
[2020-01-18 20:00] VITALS: BP 179/80
[2020-01-18] MEDS: risperiDONE 0.5mg tablet PO SCH (20:14)
--- NOTE | 2020-01-19 06:35 | NUR ---
Problems reprioritized. Patient report given, questions answered & plan of care reviewed with FENG RUSSO.
--- NOTE | 2020-01-19 06:38 | NUR ---
Patient in room IGOR 359. I have received report from Sharyn RUSSO and had the opportunity to ask questions and assume patient care.
--- NOTE | 2020-01-19 06:47 | NUR ---
RECEIVED REPORT FROM MARC RUSSO
[2020-01-19 07:00] VITALS: BP 166/90
[2020-01-19] MEDS: pantoprazole 40mg Tablet.DR PO SCH (08:08)
[2020-01-19] MEDS: docusate sod 100mg capsule PO SCH ×2 (08:08→21:00)
[2020-01-19] MEDS: folic acid 1mg tablet PO SCH (08:09)
[2020-01-19] MEDS: metoprolol succinate 25mg (24-HOUR) SR. Tablet PO SCH (08:09)
[2020-01-19] MEDS: thiamine 100mg tablet PO SCH (08:09)
[2020-01-19] MEDS: lisinopril 20mg tablet PO SCH ×2 (08:10→20:59)
[2020-01-19] MEDS: furosemide 40mg tablet PO SCH (08:11)
[2020-01-19] MEDS: allopurinol 100mg tablet PO SCH (08:11)
[2020-01-19] MEDS: magnesium oxide 400mg tablet PO SCH ×3 (08:12→21:00)
[2020-01-19 12:00] VITALS: BP 136/60
--- NOTE | 2020-01-19 18:00 | NUR ---
Patient in room IGOR 359. I have received report from Hellen RUSSO and had the opportunity to ask questions and assume patient care.
[2020-01-19 20:00] VITALS: BP 177/83
[2020-01-19] MEDS: risperiDONE 0.5mg tablet PO SCH (20:59)
[2020-01-20] VITALS: BP 160/81
--- NOTE | 2020-01-20 06:20 | NUR ---
Problems reprioritized. Patient report given, questions answered & plan of care reviewed with Lottie RUSSO.
[2020-01-20 08:00] VITALS: BP 139/73
[2020-01-20] MEDS: thiamine 100mg tablet PO SCH (09:30)
[2020-01-20] MEDS: metoprolol succinate 25mg (24-HOUR) SR. Tablet PO SCH (09:30)
[2020-01-20] MEDS: folic acid 1mg tablet PO SCH (09:30)
[2020-01-20] MEDS: allopurinol 100mg tablet PO SCH (09:30)
[2020-01-20] MEDS: docusate sod 100mg capsule PO SCH ×2 (09:30→19:27)
[2020-01-20] MEDS: lisinopril 20mg tablet PO SCH ×2 (09:30→19:27)
[2020-01-20] MEDS: furosemide 40mg tablet PO SCH (09:30)
[2020-01-20] MEDS: magnesium oxide 400mg tablet PO SCH ×3 (09:30→19:27)
[2020-01-20] MEDS: pantoprazole 40mg Tablet.DR PO SCH (09:31)
--- NOTE | 2020-01-20 18:41 | NUR ---
Report to Scott RUSSO
[2020-01-20] MEDS: acetaminophen 325mg tablet PO PRN (19:47)
[2020-01-20 20:00] VITALS: BP 168/75
[2020-01-20] MEDS: risperiDONE 0.5mg tablet PO SCH (20:37)
[2020-01-21] MEDS: metoprolol succinate 25mg (24-HOUR) SR. Tablet PO SCH (07:54)
[2020-01-21] MEDS: pantoprazole 40mg Tablet.DR PO SCH (07:54)
[2020-01-21] MEDS: magnesium oxide 400mg tablet PO SCH ×3 (07:54→19:53)
[2020-01-21] MEDS: thiamine 100mg tablet PO SCH (07:54)
[2020-01-21] MEDS: lisinopril 20mg tablet PO SCH ×2 (07:55→19:54)
[2020-01-21] MEDS: allopurinol 100mg tablet PO SCH (07:55)
[2020-01-21] MEDS: folic acid 1mg tablet PO SCH (07:55)
[2020-01-21] MEDS: furosemide 40mg tablet PO SCH (07:55)
[2020-01-21] MEDS: docusate sod 100mg capsule PO SCH ×2 (07:55→19:54)
[2020-01-21 08:00] VITALS: BP 142/70
--- NOTE | 2020-01-21 18:05 | NUR ---
Received report from primary care nurse Vane RUSSO. Assumed patient care. Patient is awake and alert up at the sink washing his hands after the restroom. Call light and items of frequent use within reach. Will continue to monitor for changes.
--- NOTE | 2020-01-21 18:07 | NUR ---
Problems reprioritized. Patient report given, questions answered & plan of care reviewed with Lulu RUSSO.
[2020-01-21 19:00] VITALS: BP 138/72
[2020-01-21] MEDS: risperiDONE 0.5mg tablet PO SCH (19:54)
--- NOTE | 2020-01-22 06:28 | NUR ---
Reported off to Dale RN. Patient is awake and alert on room air. In no apparent distress. Call light and items of frequent use within reach.
--- NOTE | 2020-01-22 06:30 | NUR ---
Patient in room IGOR 359. I have received report from Lulu RUSSO and had the opportunity to ask questions and assume patient care.
--- NOTE | 2020-01-22 07:02 | NUR ---
Patient in room IGOR 359. I have received report from Annie RUSSO and had the opportunity to ask questions and assume patient care.
[2020-01-22] MEDS: thiamine 100mg tablet PO SCH (07:44)
[2020-01-22] MEDS: magnesium oxide 400mg tablet PO SCH ×3 (07:45→20:25)
[2020-01-22] MEDS: furosemide 40mg tablet PO SCH (07:45)
[2020-01-22] MEDS: folic acid 1mg tablet PO SCH (07:45)
[2020-01-22] MEDS: allopurinol 100mg tablet PO SCH (07:45)
[2020-01-22] MEDS: metoprolol succinate 25mg (24-HOUR) SR. Tablet PO SCH (07:45)
[2020-01-22] MEDS: pantoprazole 40mg Tablet.DR PO SCH (07:45)
[2020-01-22] MEDS: lisinopril 20mg tablet PO SCH ×2 (07:45→20:25)
[2020-01-22] MEDS: docusate sod 100mg capsule PO SCH ×2 (07:45→20:25)
[2020-01-22 07:52] VITALS: BP 122/74
[2020-01-22 18:00] VITALS: BP 147/100
--- NOTE | 2020-01-22 18:15 | NUR ---
Problems reprioritized. Patient report given, questions answered & plan of care reviewed with Lulu RUSSO.
[2020-01-22] MEDS: risperiDONE 0.5mg tablet PO SCH (20:25)
--- NOTE | 2020-01-23 06:27 | NUR ---
Reported off to Zee RUSSO. Patient is awake and alert on room air in no apparent distress. Call light and items of frequent use within reach.
[2020-01-23 08:00] VITALS: BP 148/71
[2020-01-23] MEDS: metoprolol succinate 25mg (24-HOUR) SR. Tablet PO SCH (08:00)
[2020-01-23] MEDS: thiamine 100mg tablet PO SCH (08:30)
[2020-01-23] MEDS: pantoprazole 40mg Tablet.DR PO SCH (08:31)
[2020-01-23] MEDS: magnesium oxide 400mg tablet PO SCH ×3 (08:31→20:24)
[2020-01-23] MEDS: allopurinol 100mg tablet PO SCH (08:31)
[2020-01-23] MEDS: furosemide 40mg tablet PO SCH (08:31)
[2020-01-23] MEDS: lisinopril 20mg tablet PO SCH ×2 (08:31→20:19)
[2020-01-23] MEDS: docusate sod 100mg capsule PO SCH ×2 (08:31→20:19)
[2020-01-23] MEDS: folic acid 1mg tablet PO SCH (08:31)
[2020-01-23 11:47] VITALS: BP 109/56
[2020-01-23 18:00] VITALS: BP 157/70
--- NOTE | 2020-01-23 18:26 | NUR ---
Problems reprioritized. Patient report given, questions answered & plan of care reviewed with LIZABETH RUSSO.
[2020-01-23] MEDS: risperiDONE 0.5mg tablet PO SCH (20:18)
[2020-01-23] MEDS: acetaminophen 325mg tablet PO PRN (20:19)
--- NOTE | 2020-01-24 06:30 | NUR ---
Reported off to Zee RUSSO. Patient is awake and alert on room air. In no apparent distress. Call light and items of frequent use within reach.
[2020-01-24] MEDS: lisinopril 20mg tablet PO SCH ×2 (07:34→20:50)
[2020-01-24] MEDS: allopurinol 100mg tablet PO SCH (07:34)
[2020-01-24] MEDS: docusate sod 100mg capsule PO SCH ×3 (07:35→20:52)
[2020-01-24] MEDS: furosemide 40mg tablet PO SCH (07:35)
[2020-01-24] MEDS: magnesium oxide 400mg tablet PO SCH ×3 (07:35→20:55)
[2020-01-24] MEDS: thiamine 100mg tablet PO SCH (07:35)
[2020-01-24] MEDS: metoprolol succinate 25mg (24-HOUR) SR. Tablet PO SCH (07:35)
[2020-01-24] MEDS: pantoprazole 40mg Tablet.DR PO SCH (07:35)
[2020-01-24] MEDS: folic acid 1mg tablet PO SCH (07:35)
[2020-01-24 07:40] VITALS: BP 158/91
--- NOTE | 2020-01-24 15:10 | NUR ---
Problems reprioritized. Patient report given, questions answered & plan of care reviewed with MARIELENA RUSSO.
[2020-01-24 18:00] VITALS: BP 129/50
--- NOTE | 2020-01-24 18:22 | NUR ---
Problems reprioritized. Patient report given, questions answered & plan of care reviewed with RAFAELA Owens.
--- NOTE | 2020-01-24 20:33 | NUR ---
Reassessment: Pt continues meeting nutrient needs with documented 75-100% PO intake. Recommendations: 1) Bowel care per comfort care measures Addendum: 01/24/20 at [address] Amended: Links added.
[2020-01-24] MEDS: risperiDONE 0.5mg tablet PO SCH (20:50)
[2020-01-24] MEDS: acetaminophen 325mg tablet PO PRN (20:51)
[2020-01-25] VITALS: BP 123/53
--- NOTE | 2020-01-25 06:00 | NUR ---
Patient in room IGOR 359. I have received report from RAFAELA Owens and had the opportunity to ask questions and assume patient care.
--- NOTE | 2020-01-25 06:07 | NUR ---
Problems reprioritized. Patient report given, questions answered & plan of care reviewed with Kelly RUSSO.
[2020-01-25] MEDS: thiamine 100mg tablet PO SCH (07:43)
[2020-01-25] MEDS: folic acid 1mg tablet PO SCH (07:43)
[2020-01-25] MEDS: metoprolol succinate 25mg (24-HOUR) SR. Tablet PO SCH (07:44)
[2020-01-25] MEDS: lisinopril 20mg tablet PO SCH ×2 (07:44→20:00)
[2020-01-25] MEDS: pantoprazole 40mg Tablet.DR PO SCH (07:44)
[2020-01-25] MEDS: magnesium oxide 400mg tablet PO SCH ×3 (07:44→20:00)
[2020-01-25] MEDS: allopurinol 100mg tablet PO SCH (07:44)
[2020-01-25] MEDS: furosemide 40mg tablet PO SCH (07:44)
[2020-01-25 08:00] VITALS: BP 161/71
[2020-01-25] MEDS: acetaminophen 325mg tablet PO PRN (16:18)
--- NOTE | 2020-01-25 18:09 | NUR ---
Patient in room IGOR 359. I have received report from Kelly Ragland and had the opportunity to ask questions and assume patient care. Addendum: 01/25/20 at 1809 by Macey Scott RN Amended: Links added.
--- NOTE | 2020-01-25 18:09 | NUR ---
Problems reprioritized. Patient report given, questions answered & plan of care reviewed with RAFAELA Choudhury.
[2020-01-25 19:00] VITALS: BP 162/71
[2020-01-25] MEDS: docusate sod 100mg capsule PO SCH (20:00)
[2020-01-25] MEDS: risperiDONE 0.5mg tablet PO SCH (21:00)
--- NOTE | 2020-01-25 22:00 | NUR ---
pt resting on his side without s&s of distress at this time.
--- NOTE | 2020-01-25 23:17 | NUR ---
resting eyes closed no changes.
--- NOTE | 2020-01-25 23:59 | NUR ---
pt resting eyes closed without changes.
--- NOTE | 2020-01-26 04:00 | NUR ---
pt scott said waiting till 7am so i can go to the social security office. encouraged to get some more rest. he rolled over onto right side and closed his eyes.
--- NOTE | 2020-01-26 04:44 | NUR ---
pt got up found him heading off surgical floor wanting to go to social security office and encouraged to head back to his room attempted to reprient pt to the hospital. he laid back down again on right side.
--- NOTE | 2020-01-26 06:20 | NUR ---
Problems reprioritized. Patient report given, questions answered & plan of care reviewed with Lili Ragland. Addendum: 01/26/20 at 0621 by Macey Scott RN Amended: Links added.
--- NOTE | 2020-01-26 06:42 | NUR ---
I have received report from Macey RUSSO and had the opportunity to ask questions and assume patient care.
[2020-01-26 07:23] VITALS: BP 154/75
[2020-01-26] MEDS: magnesium oxide 400mg tablet PO SCH ×3 (08:19→19:11)
[2020-01-26] MEDS: lisinopril 20mg tablet PO SCH ×2 (08:19→19:13)
[2020-01-26] MEDS: metoprolol succinate 25mg (24-HOUR) SR. Tablet PO SCH (08:19)
[2020-01-26] MEDS: furosemide 40mg tablet PO SCH (08:19)
[2020-01-26] MEDS: pantoprazole 40mg Tablet.DR PO SCH (08:19)
[2020-01-26] MEDS: thiamine 100mg tablet PO SCH (08:19)
[2020-01-26] MEDS: folic acid 1mg tablet PO SCH (08:19)
[2020-01-26] MEDS: allopurinol 100mg tablet PO SCH (08:19)
[2020-01-26] MEDS: docusate sod 100mg capsule PO SCH ×2 (08:19→19:11)
[2020-01-26] MEDS: acetaminophen 325mg tablet PO PRN ×2 (14:22→22:45)
--- NOTE | 2020-01-26 18:12 | NUR ---
Problems reprioritized. Patient report given, questions answered & plan of care reviewed with Macey RUSSO.
--- NOTE | 2020-01-26 18:24 | NUR ---
Patient in room IGOR 359. I have received report from ANJEL RUSSO and had the opportunity to ask questions and assume patient care. Addendum: 01/26/20 at 1825 by Macey Scott RN Amended: Links added.
--- NOTE | 2020-01-26 18:25 | NUR ---
Patient in room IGOR 359. I have received report from ANJEL RUSSO and had the opportunity to ask questions and assume patient care. Addendum: 01/26/20 at 1826 by Macey Scott RN Amended: Links added.
--- NOTE | 2020-01-26 19:10 | NUR ---
PT TOOK HIS HS MEDICATIONS NO COMPLAINTS AT THIS TIME WALKING AROUND IN THE ROOM AND THE HALLS.
[2020-01-26] MEDS: mineral oil/pet hy-phy 85gm ointment TP SCH (19:13)
[2020-01-26] MEDS: risperiDONE 0.5mg tablet PO SCH (19:14)
[2020-01-26 20:00] VITALS: BP 120/62
--- NOTE | 2020-01-26 20:35 | NUR ---
PT LAYING DOWN ON THE BED RESTING ON RIGHT SIDE WITHOUT S&S OF DISTRESS AT THIS TIME.
--- NOTE | 2020-01-26 22:46 | NUR ---
PT AWOKE C/O BACK PAIN AND MEDICATED FOR THIS WITH TYLENOL PER REQUEST. STATED IT WAS ACHING ABOUT 5-6/10 PER PT.
--- NOTE | 2020-01-27 00:05 | NUR ---
sleeping right side no changes.
--- NOTE | 2020-01-27 01:47 | NUR ---
awoke up to brp to void wandered around the room. tolerated well.
--- NOTE | 2020-01-27 03:59 | NUR ---
pt resting eyes closed without changes.
--- NOTE | 2020-01-27 05:09 | NUR ---
resting without changes.
--- NOTE | 2020-01-27 06:26 | NUR ---
Problems reprioritized. Patient report given, questions answered & plan of care reviewed with Laverne Ragland. Addendum: 01/27/20 at 0638 by Macye Scott RN Amended: Links added.
--- NOTE | 2020-01-27 06:35 | NUR ---
Problems reprioritized. Patient report given, questions answered & plan of care reviewed with Laverne Ragland. Addendum: 01/27/20 at 0635 by Macey Scott RN Amended: Links added.
--- NOTE | 2020-01-27 06:43 | NUR ---
Patient in room IGOR 359. I have received report from RAFAELA Choudhury and had the opportunity to ask questions and assume patient care.
[2020-01-27 07:00] VITALS: BP 127/79
[2020-01-27] MEDS: allopurinol 100mg tablet PO SCH (07:51)
[2020-01-27] MEDS: docusate sod 100mg capsule PO SCH ×2 (07:51→20:14)
[2020-01-27] MEDS: thiamine 100mg tablet PO SCH (07:51)
[2020-01-27] MEDS: pantoprazole 40mg Tablet.DR PO SCH (07:51)
[2020-01-27] MEDS: lisinopril 20mg tablet PO SCH ×2 (07:51→20:15)
[2020-01-27] MEDS: furosemide 40mg tablet PO SCH (07:51)
[2020-01-27] MEDS: magnesium oxide 400mg tablet PO SCH ×3 (07:51→20:14)
[2020-01-27] MEDS: metoprolol succinate 25mg (24-HOUR) SR. Tablet PO SCH (07:51)
[2020-01-27] MEDS: folic acid 1mg tablet PO SCH (07:52)
[2020-01-27] MEDS: mineral oil/pet hy-phy 85gm ointment TP SCH (07:59)
[2020-01-27] MEDS: acetaminophen 325mg tablet PO PRN (15:52)
--- NOTE | 2020-01-27 18:15 | NUR ---
Problems reprioritized. Patient report given, questions answered & plan of care reviewed with RAFAELA Araujo.
[2020-01-27 20:00] VITALS: BP 137/58
[2020-01-27] MEDS: risperiDONE 0.5mg tablet PO SCH (20:14)
--- NOTE | 2020-01-28 06:30 | NUR ---
Patient in room IGOR 359. I have received report from RAFAELA BROUSSARD and had the opportunity to ask questions and assume patient care.
--- NOTE | 2020-01-28 06:31 | NUR ---
Problems reprioritized. Patient report given, questions answered & plan of care reviewed with RAFAELA Rosario. Addendum: 01/28/20 at 0631 by Gayle Mckenna RN Amended: Links added.
[2020-01-28 07:00] VITALS: BP 130/71
[2020-01-28] MEDS: thiamine 100mg tablet PO SCH (08:48)
[2020-01-28] MEDS: lisinopril 20mg tablet PO SCH ×2 (08:49→19:42)
[2020-01-28] MEDS: docusate sod 100mg capsule PO SCH ×2 (08:49→20:00)
[2020-01-28] MEDS: pantoprazole 40mg Tablet.DR PO SCH (08:49)
[2020-01-28] MEDS: furosemide 40mg tablet PO SCH (08:49)
[2020-01-28] MEDS: folic acid 1mg tablet PO SCH (08:49)
[2020-01-28] MEDS: magnesium oxide 400mg tablet PO SCH ×3 (08:49→19:42)
[2020-01-28] MEDS: allopurinol 100mg tablet PO SCH (08:49)
[2020-01-28] MEDS: metoprolol succinate 25mg (24-HOUR) SR. Tablet PO SCH (08:50)
[2020-01-28 08:52] VITALS: BP 117/56
[2020-01-28] MEDS: acetaminophen 325mg tablet PO PRN (11:13)
[2020-01-28] MEDS: mineral oil/pet hy-phy 85gm ointment TP SCH (17:05)
--- NOTE | 2020-01-28 18:28 | NUR ---
Problems reprioritized. Patient report given, questions answered & plan of care reviewed with RAFAELA BROUSSARD.
[2020-01-28] MEDS: risperiDONE 0.5mg tablet PO SCH (19:43)
[2020-01-28 20:00] VITALS: BP 150/67
--- NOTE | 2020-01-28 20:53 | NUR ---
Patient in room IGOR 359. I have received report from RAFAELA Rosario and had the opportunity to ask questions and assume patient care. Addendum: 01/28/20 at 2057 by Gayle Mckenna RN Amended: Links added.
--- NOTE | 2020-01-29 06:27 | NUR ---
Problems reprioritized. Patient report given, questions answered & plan of care reviewed with RAFAELA Galloway. Addendum: 01/29/20 at 626 by Gayle Mckenna RN Amended: Links added.
--- NOTE | 2020-01-29 06:41 | NUR ---
Patient in room IGOR 359. I have received report from RAFAELA Araujo and had the opportunity to ask questions and assume patient care.
[2020-01-29 07:25] VITALS: BP 147/67
[2020-01-29] MEDS: thiamine 100mg tablet PO SCH (08:03)
[2020-01-29] MEDS: metoprolol succinate 25mg (24-HOUR) SR. Tablet PO SCH (08:03)
[2020-01-29] MEDS: allopurinol 100mg tablet PO SCH (08:03)
[2020-01-29] MEDS: magnesium oxide 400mg tablet PO SCH ×3 (08:03→20:04)
[2020-01-29] MEDS: pantoprazole 40mg Tablet.DR PO SCH (08:04)
[2020-01-29] MEDS: mineral oil/pet hy-phy 85gm ointment TP SCH (08:04)
[2020-01-29] MEDS: lisinopril 20mg tablet PO SCH ×2 (08:04→20:04)
[2020-01-29] MEDS: folic acid 1mg tablet PO SCH (08:04)
[2020-01-29] MEDS: docusate sod 100mg capsule PO SCH ×2 (08:04→20:04)
[2020-01-29] MEDS: furosemide 40mg tablet PO SCH (08:04)
[2020-01-29] MEDS: acetaminophen 325mg tablet PO PRN ×2 (14:46→21:13)
[2020-01-29 18:15] VITALS: BP 164/74
--- NOTE | 2020-01-29 18:24 | NUR ---
Problems reprioritized. Patient report given, questions answered & plan of care reviewed with RAFAELA Mancini.
--- NOTE | 2020-01-29 18:34 | NUR ---
Patient in room IGOR 359. I have received report from RAFAELA Galloway and had the opportunity to ask questions and assume patient care.
[2020-01-29 20:00] VITALS: BP 142/62
[2020-01-29] MEDS: risperiDONE 0.5mg tablet PO SCH (20:04)
--- NOTE | 2020-01-30 06:30 | NUR ---
Pt refused VS
--- NOTE | 2020-01-30 06:32 | NUR ---
Problems reprioritized. Patient report given, questions answered & plan of care reviewed with RAFAELA Pacheco.
--- NOTE | 2020-01-30 06:35 | NUR ---
Patient in room IGOR 359. I have received report from RAFAELA Mancini and had the opportunity to ask questions and assume patient care.
[2020-01-30 08:00] VITALS: BP 116/60
[2020-01-30] MEDS: thiamine 100mg tablet PO SCH (08:15)
[2020-01-30] MEDS: furosemide 40mg tablet PO SCH (08:15)
[2020-01-30] MEDS: folic acid 1mg tablet PO SCH (08:15)
[2020-01-30] MEDS: allopurinol 100mg tablet PO SCH (08:15)
[2020-01-30] MEDS: docusate sod 100mg capsule PO SCH ×2 (08:15→19:44)
[2020-01-30] MEDS: pantoprazole 40mg Tablet.DR PO SCH (08:15)
[2020-01-30] MEDS: lisinopril 20mg tablet PO SCH ×2 (08:15→19:47)
[2020-01-30] MEDS: magnesium oxide 400mg tablet PO SCH ×3 (08:15→19:44)
[2020-01-30] MEDS: metoprolol succinate 25mg (24-HOUR) SR. Tablet PO SCH (08:15)
[2020-01-30] MEDS: mineral oil/pet hy-phy 85gm ointment TP SCH (08:23)
[2020-01-30 18:00] VITALS: BP 121/45
--- NOTE | 2020-01-30 18:20 | NUR ---
Problems reprioritized. Patient report given, questions answered & plan of care reviewed with RAFAELA Mancini.
--- NOTE | 2020-01-30 19:16 | NUR ---
Patient in room IGOR 359. I have received report from RAFAELA Pacheco and had the opportunity to ask questions and assume patient care.
[2020-01-30] MEDS: acetaminophen 325mg tablet PO PRN (19:43)
[2020-01-30] MEDS: risperiDONE 0.5mg tablet PO SCH (21:23)
[2020-01-31] MEDS: magnesium hydroxide 30ml (MOM) UD suspension PO PRN (03:44)
--- NOTE | 2020-01-31 06:20 | NUR ---
Patient in room IGOR 359. I have received report from RAFAELA Mancini and had the opportunity to ask questions and assume patient care.
--- NOTE | 2020-01-31 06:25 | NUR ---
Problems reprioritized. Patient report given, questions answered & plan of care reviewed with RAFAELA Pacheco.
[2020-01-31 06:30] VITALS: BP 137/73
[2020-01-31 07:00] VITALS: BP 137/73
[2020-01-31] MEDS: docusate sod 100mg capsule PO SCH ×2 (08:00→19:04)
[2020-01-31] MEDS: thiamine 100mg tablet PO SCH (09:03)
[2020-01-31] MEDS: allopurinol 100mg tablet PO SCH (09:03)
[2020-01-31] MEDS: magnesium oxide 400mg tablet PO SCH ×3 (09:04→19:04)
[2020-01-31] MEDS: metoprolol succinate 25mg (24-HOUR) SR. Tablet PO SCH (09:04)
[2020-01-31] MEDS: folic acid 1mg tablet PO SCH (09:04)
[2020-01-31] MEDS: pantoprazole 40mg Tablet.DR PO SCH (09:04)
[2020-01-31] MEDS: furosemide 40mg tablet PO SCH (09:04)
[2020-01-31] MEDS: lisinopril 20mg tablet PO SCH ×2 (09:04→19:04)
[2020-01-31] MEDS: acetaminophen 325mg tablet PO PRN ×2 (09:05→19:03)
[2020-01-31 11:00] VITALS: BP 125/69
--- NOTE | 2020-01-31 12:34 | NUR ---
Reassessment: Pt s/p BSS 01/[address] roper to continue mechanical soft food with thin liquids. Pt continues with 100% PO intake while receiving Ensure pudding q breakfast and yogurt BIDLD meeting nutrient needs. LBM 01/30. No further nutrition intervention implemented at this time. Will continue to follow. Recommendations: 1) Bowel care per comfort care measures 2) Continue Ensure pudding q breakfast, yogurt BIDLD Addendum: 01/31/20 at [address] Amended: Links added.
--- NOTE | 2020-01-31 18:15 | NUR ---
Problems reprioritized. Patient report given, questions answered & plan of care reviewed with RAFAELA Mancini.
--- NOTE | 2020-01-31 18:35 | NUR ---
Patient in room IGOR 359. I have received report from RAFAELA Pacheco and had the opportunity to ask questions and assume patient care.
[2020-01-31 18:52] VITALS: BP 141/48
[2020-01-31] MEDS: risperiDONE 0.5mg tablet PO SCH (20:49)
--- NOTE | 2020-02-01 06:15 | NUR ---
Patient in room IGOR 359A. I have received report from RAFAELA OJEDA and had the opportunity to ask questions and assume patient care.
[2020-02-01 06:30] VITALS: BP 139/67
--- NOTE | 2020-02-01 06:32 | NUR ---
Problems reprioritized. Patient report given, questions answered & plan of care reviewed with Marlene Gardiner RN.
[2020-02-01] MEDS: furosemide 40mg tablet PO SCH (07:19)
[2020-02-01] MEDS: thiamine 100mg tablet PO SCH (07:19)
[2020-02-01] MEDS: pantoprazole 40mg Tablet.DR PO SCH (07:19)
[2020-02-01] MEDS: allopurinol 100mg tablet PO SCH (07:20)
[2020-02-01] MEDS: magnesium oxide 400mg tablet PO SCH ×3 (07:20→21:06)
[2020-02-01] MEDS: lisinopril 20mg tablet PO SCH ×2 (07:20→21:06)
[2020-02-01] MEDS: docusate sod 100mg capsule PO SCH ×2 (07:20→20:00)
[2020-02-01] MEDS: metoprolol succinate 25mg (24-HOUR) SR. Tablet PO SCH (07:20)
[2020-02-01] MEDS: folic acid 1mg tablet PO SCH (07:20)
[2020-02-01] MEDS: acetaminophen 325mg tablet PO PRN (09:58)
[2020-02-01 10:56] VITALS: BP 129/59
--- NOTE | 2020-02-01 16:00 | NUR ---
DID NOT GIVE MAG-OX, FORGOT TO GIVEN WAS TOO LATE WHEN I CAUGHT IT
--- NOTE | 2020-02-01 18:37 | NUR ---
Problems reprioritized. Patient report given, questions answered & plan of care reviewed with WU RN.
[2020-02-01 19:30] VITALS: BP 145/52
[2020-02-01] MEDS: risperiDONE 0.5mg tablet PO SCH (21:06)
[2020-02-02 07:00] VITALS: BP 131/66
[2020-02-02] MEDS: pantoprazole 40mg Tablet.DR PO SCH (08:53)
[2020-02-02] MEDS: furosemide 40mg tablet PO SCH (08:53)
[2020-02-02] MEDS: docusate sod 100mg capsule PO SCH ×2 (08:53→21:19)
[2020-02-02] MEDS: folic acid 1mg tablet PO SCH (08:53)
[2020-02-02] MEDS: lisinopril 20mg tablet PO SCH ×2 (08:54→21:20)
[2020-02-02] MEDS: allopurinol 100mg tablet PO SCH (08:54)
[2020-02-02] MEDS: metoprolol succinate 25mg (24-HOUR) SR. Tablet PO SCH (08:54)
[2020-02-02] MEDS: magnesium oxide 400mg tablet PO SCH ×3 (08:54→21:19)
[2020-02-02] MEDS: thiamine 100mg tablet PO SCH (08:54)
[2020-02-02 11:00] VITALS: BP 114/73
[2020-02-02] MEDS: acetaminophen 325mg tablet PO PRN ×2 (14:13→21:32)
[2020-02-02 18:30] VITALS: BP 156/71
[2020-02-02] MEDS: risperiDONE 0.5mg tablet PO SCH (21:20)
--- NOTE | 2020-02-02 22:23 | NUR ---
Patient in room IGOR 348. I have received report from Marlene RUSSO and had the opportunity to ask questions and assume patient care.
--- NOTE | 2020-02-03 06:09 | NUR ---
I have received report from Shelia RUSSO and had the opportunity to ask questions and assume patient care.
--- NOTE | 2020-02-03 06:29 | NUR ---
Problems reprioritized. Patient report given, questions answered & plan of care reviewed with Lili RUSSO.
[2020-02-03 08:17] VITALS: BP 125/67
[2020-02-03] MEDS: magnesium oxide 400mg tablet PO SCH ×3 (08:21→20:00)
[2020-02-03] MEDS: allopurinol 100mg tablet PO SCH (08:22)
[2020-02-03] MEDS: docusate sod 100mg capsule PO SCH ×2 (08:22→19:59)
[2020-02-03] MEDS: thiamine 100mg tablet PO SCH (08:22)
[2020-02-03] MEDS: furosemide 40mg tablet PO SCH (08:22)
[2020-02-03] MEDS: metoprolol succinate 25mg (24-HOUR) SR. Tablet PO SCH (08:22)
[2020-02-03] MEDS: lisinopril 20mg tablet PO SCH ×2 (08:22→20:00)
[2020-02-03] MEDS: pantoprazole 40mg Tablet.DR PO SCH (08:22)
[2020-02-03] MEDS: folic acid 1mg tablet PO SCH (08:23)
--- NOTE | 2020-02-03 10:14 | NUR ---
Patient up walking the tan way, requesting that his phone be untangled so that he can make a call. Patient pleasant and cooperative, medications taken. Currently watching TV and reading the paper.
--- NOTE | 2020-02-03 14:27 | NUR ---
Patient in room IGOR 359. I have received report from Lili RUSSO and had the opportunity to ask questions and assume patient care. Patient resting in bed at this time, will continue to monitor.
[2020-02-03] MEDS: acetaminophen 325mg tablet PO PRN (15:57)
--- NOTE | 2020-02-03 16:04 | NUR ---
I agree with the assessment from the RN I received report from at 1430. Will continue to monitor the patient throughout the shift.
[2020-02-03 18:00] VITALS: BP 151/72
--- NOTE | 2020-02-03 18:30 | NUR ---
Problems reprioritized. Patient report given, questions answered & plan of care reviewed with Abiola ANGLIN
--- NOTE | 2020-02-03 19:30 | NUR ---
Patient in room IGOR 359. I have received report from RAFAELA Culver and had the opportunity to ask questions and assume patient care.
[2020-02-03] MEDS: risperiDONE 0.5mg tablet PO SCH (20:00)
--- NOTE | 2020-02-04 06:29 | NUR ---
Problems reprioritized. Patient report given, questions answered & plan of care reviewed with RAFAELA Mittal.
[2020-02-04 06:30] VITALS: BP 149/57
[2020-02-04] MEDS: lisinopril 20mg tablet PO SCH ×2 (08:00→22:27)
[2020-02-04] MEDS: docusate sod 100mg capsule PO SCH ×2 (08:00→22:23)
[2020-02-04] MEDS: thiamine 100mg tablet PO SCH (08:01)
[2020-02-04] MEDS: folic acid 1mg tablet PO SCH (08:01)
[2020-02-04] MEDS: pantoprazole 40mg Tablet.DR PO SCH (08:01)
[2020-02-04] MEDS: allopurinol 100mg tablet PO SCH (08:01)
[2020-02-04] MEDS: furosemide 40mg tablet PO SCH (08:02)
[2020-02-04] MEDS: metoprolol succinate 25mg (24-HOUR) SR. Tablet PO SCH (08:02)
[2020-02-04] MEDS: magnesium oxide 400mg tablet PO SCH ×3 (08:02→22:24)
[2020-02-04] MEDS: acetaminophen 325mg tablet PO PRN ×3 (08:05→22:24)
[2020-02-04 10:53] VITALS: BP 130/64
--- NOTE | 2020-02-04 18:21 | NUR ---
Problems reprioritized. Patient report given, questions answered & plan of care reviewed with RAFAELA Mancini.
--- NOTE | 2020-02-04 18:28 | NUR ---
Patient in room IGOR 359. I have received report from RAFAELA Mittal and had the opportunity to ask questions and assume patient care.
[2020-02-04 18:30] VITALS: BP 152/51
[2020-02-04] MEDS: risperiDONE 0.5mg tablet PO SCH (21:00)
[2020-02-05] VITALS: BP 132/57
--- NOTE | 2020-02-05 06:30 | NUR ---
Problems reprioritized. Patient report given, questions answered & plan of care reviewed with Marlene Gardiner RN.
--- NOTE | 2020-02-05 06:30 | NUR ---
Patient in room IGOR 359. I have received report from RAFAELA OJEDA and had the opportunity to ask questions and assume patient care.
[2020-02-05 07:00] VITALS: BP 136/61
[2020-02-05] MEDS: folic acid 1mg tablet PO SCH (09:07)
[2020-02-05] MEDS: magnesium oxide 400mg tablet PO SCH (09:07)
[2020-02-05] MEDS: furosemide 40mg tablet PO SCH (09:07)
[2020-02-05] MEDS: thiamine 100mg tablet PO SCH (09:08)
[2020-02-05] MEDS: lisinopril 20mg tablet PO SCH ×2 (09:08→21:16)
[2020-02-05] MEDS: docusate sod 100mg capsule PO SCH ×2 (09:08→21:16)
[2020-02-05] MEDS: allopurinol 100mg tablet PO SCH (09:09)
[2020-02-05] MEDS: metoprolol succinate 25mg (24-HOUR) SR. Tablet PO SCH (09:09)
[2020-02-05] MEDS: pantoprazole 40mg Tablet.DR PO SCH (09:09)
[2020-02-05] MEDS: acetaminophen 325mg tablet PO PRN ×2 (11:33→23:27)
--- NOTE | 2020-02-05 18:45 | NUR ---
Problems reprioritized. Patient report given, questions answered & plan of care reviewed with GRISEL RECINOS RN
--- NOTE | 2020-02-05 18:50 | NUR ---
Patient in room IGOR 359. I have received report from BELTRAN RUSSO and had the opportunity to ask questions and assume patient care.
[2020-02-05 21:00] VITALS: BP 148/62
[2020-02-05] MEDS: risperiDONE 0.5mg tablet PO SCH (21:16)
[2020-02-06] VITALS: BP 137/53
--- NOTE | 2020-02-06 06:30 | NUR ---
Patient in room [facility] 359. I have received report from Addis RUSSO and had the opportunity to ask questions and assume patient care.
--- NOTE | 2020-02-06 06:30 | NUR ---
Problems reprioritized. Patient report given, questions answered & plan of care reviewed with SUSHILA RN.
[2020-02-06 07:14] VITALS: BP 136/70
[2020-02-06] MEDS: thiamine 100mg tablet PO SCH (08:14)
[2020-02-06] MEDS: folic acid 1mg tablet PO SCH (08:14)
[2020-02-06] MEDS: metoprolol succinate 25mg (24-HOUR) SR. Tablet PO SCH (08:15)
[2020-02-06] MEDS: lisinopril 20mg tablet PO SCH ×2 (08:15→20:51)
[2020-02-06] MEDS: allopurinol 100mg tablet PO SCH (08:16)
[2020-02-06] MEDS: pantoprazole 40mg Tablet.DR PO SCH (08:17)
[2020-02-06] MEDS: docusate sod 100mg capsule PO SCH ×2 (08:17→20:51)
[2020-02-06] MEDS: furosemide 40mg tablet PO SCH (08:18)
[2020-02-06] MEDS: acetaminophen 325mg tablet PO PRN ×3 (08:33→22:57)
[2020-02-06 11:00] VITALS: BP 150/75
[2020-02-06 18:00] VITALS: BP 158/71
--- NOTE | 2020-02-06 18:24 | NUR ---
Problems reprioritized. Patient report given, questions answered & plan of care reviewed with Prudence RN.
[2020-02-06] MEDS: risperiDONE 0.5mg tablet PO SCH (20:52)
--- NOTE | 2020-02-07 01:12 | NUR ---
Patient refused Addendum: 02/07/20 at 0116 by Taisha Clay RN Amended: Links added.
[2020-02-07 06:30] VITALS: BP 126/62
--- NOTE | 2020-02-07 06:34 | NUR ---
Problems reprioritized. Patient report given, questions answered & plan of care reviewed with MARIELENA RUSSO.
--- NOTE | 2020-02-07 06:35 | NUR ---
Problems reprioritized. Patient report given, questions answered & plan of care reviewed with MARIELENA RUSSO.
--- NOTE | 2020-02-07 07:01 | NUR ---
Patient in room IGOR 359. I have received report from RAFAELA Sumner and had the opportunity to ask questions and assume patient care.
[2020-02-07] MEDS: folic acid 1mg tablet PO SCH (07:56)
[2020-02-07] MEDS: docusate sod 100mg capsule PO SCH ×2 (08:00→20:22)
[2020-02-07] MEDS: allopurinol 100mg tablet PO SCH (08:01)
[2020-02-07] MEDS: furosemide 40mg tablet PO SCH (08:02)
[2020-02-07] MEDS: pantoprazole 40mg Tablet.DR PO SCH (08:02)
[2020-02-07] MEDS: thiamine 100mg tablet PO SCH (08:03)
[2020-02-07] MEDS: lisinopril 20mg tablet PO SCH ×2 (08:03→20:23)
[2020-02-07] MEDS: metoprolol succinate 25mg (24-HOUR) SR. Tablet PO SCH (08:04)
--- NOTE | 2020-02-07 10:01 | NUR ---
Reassessment: Pt continues with 100% PO intake meeting nutrient needs. [facility] 02/04. No further nutrition intervention warranted at this time. Will continue to follow. Recommendations: 1) Bowel care per comfort care measures 2) Continue Ensure pudding q breakfast, yogurt BIDLD Addendum: 02/07/20 at [address] Amended: Links added.
[2020-02-07] MEDS: acetaminophen 325mg tablet PO PRN ×2 (15:33→21:55)
[2020-02-07 18:00] VITALS: BP 157/81
--- NOTE | 2020-02-07 18:34 | NUR ---
Problems reprioritized. Patient report given, questions answered & plan of care reviewed with RAFAELA Sumner.
--- NOTE | 2020-02-07 19:08 | NUR ---
Patient in room IGOR 359. I have received report from MARIELENA RUSSO and had the opportunity to ask questions and assume patient care.
[2020-02-07] MEDS: risperiDONE 0.5mg tablet PO SCH (21:55)
[2020-02-08] VITALS: BP 120/44
--- NOTE | 2020-02-08 06:21 | NUR ---
Problems reprioritized. Patient report given, questions answered & plan of care reviewed with Evonne RUSSO.
[2020-02-08 07:00] VITALS: BP 145/79
[2020-02-08] MEDS: LORazepam 0.5 MG tablet PO PRN (09:33)
[2020-02-08] MEDS: thiamine 100mg tablet PO SCH (09:33)
[2020-02-08] MEDS: folic acid 1mg tablet PO SCH (09:33)
[2020-02-08] MEDS: allopurinol 100mg tablet PO SCH (09:33)
[2020-02-08] MEDS: pantoprazole 40mg Tablet.DR PO SCH (09:33)
[2020-02-08] MEDS: magnesium hydroxide 30ml (MOM) UD suspension PO PRN (09:33)
[2020-02-08] MEDS: furosemide 40mg tablet PO SCH (09:33)
[2020-02-08] MEDS: metoprolol succinate 25mg (24-HOUR) SR. Tablet PO SCH (09:33)
[2020-02-08] MEDS: docusate sod 100mg capsule PO SCH ×2 (09:34→21:08)
[2020-02-08] MEDS: lisinopril 20mg tablet PO SCH ×2 (09:36→19:01)
[2020-02-08] MEDS: acetaminophen 325mg tablet PO PRN ×2 (11:44→19:02)
[2020-02-08 18:30] VITALS: BP 182/81
[2020-02-08] MEDS: risperiDONE 0.5mg tablet PO SCH (21:08)
--- NOTE | 2020-02-09 06:26 | NUR ---
Patient in room IGOR 359A. I have received report from RAFAELA AGUIAR and had the opportunity to ask questions and assume patient care.
[2020-02-09 06:37] VITALS: BP 145/83
[2020-02-09] MEDS: lisinopril 20mg tablet PO SCH ×2 (07:10→18:58)
[2020-02-09] MEDS: allopurinol 100mg tablet PO SCH (07:11)
[2020-02-09] MEDS: metoprolol succinate 25mg (24-HOUR) SR. Tablet PO SCH (07:11)
[2020-02-09] MEDS: thiamine 100mg tablet PO SCH (07:11)
[2020-02-09] MEDS: docusate sod 100mg capsule PO SCH ×2 (07:11→18:58)
[2020-02-09] MEDS: furosemide 40mg tablet PO SCH (07:11)
[2020-02-09] MEDS: pantoprazole 40mg Tablet.DR PO SCH (07:11)
[2020-02-09] MEDS: folic acid 1mg tablet PO SCH (07:11)
[2020-02-09] MEDS: acetaminophen 325mg tablet PO PRN ×2 (07:12→19:03)
--- NOTE | 2020-02-09 18:09 | NUR ---
Problems reprioritized. Patient report given, questions answered & plan of care reviewed with RAFAELA AGUIAR.
[2020-02-09 18:29] VITALS: BP 162/75
[2020-02-09] MEDS: risperiDONE 0.5mg tablet PO SCH (22:02)
[2020-02-10 07:02] VITALS: BP 156/75
[2020-02-10] MEDS: allopurinol 100mg tablet PO SCH (07:37)
[2020-02-10] MEDS: pantoprazole 40mg Tablet.DR PO SCH (07:37)
[2020-02-10] MEDS: docusate sod 100mg capsule PO SCH ×2 (07:37→20:18)
[2020-02-10] MEDS: furosemide 40mg tablet PO SCH (07:37)
[2020-02-10] MEDS: thiamine 100mg tablet PO SCH (07:37)
[2020-02-10] MEDS: acetaminophen 325mg tablet PO PRN ×2 (07:37→16:10)
[2020-02-10] MEDS: metoprolol succinate 25mg (24-HOUR) SR. Tablet PO SCH (07:37)
[2020-02-10] MEDS: folic acid 1mg tablet PO SCH (07:38)
[2020-02-10] MEDS: lisinopril 20mg tablet PO SCH ×2 (07:38→20:19)
[2020-02-10 11:45] VITALS: BP 151/62
[2020-02-10 18:30] VITALS: BP 120/69
--- NOTE | 2020-02-10 18:33 | NUR ---
Problems reprioritized. Patient report given, questions answered & plan of care reviewed with RAFAELA Bass.
--- NOTE | 2020-02-10 18:39 | NUR ---
Patient in room IGOR 350. I have received report from Shira RUSSO and had the opportunity to ask questions and assume patient care.
[2020-02-10 19:56] VITALS: BP 120/69
[2020-02-10] MEDS: risperiDONE 0.5mg tablet PO SCH (20:19)
[2020-02-11] MEDS: acetaminophen 325mg tablet PO PRN ×2 (02:36→11:15)
--- NOTE | 2020-02-11 06:23 | NUR ---
Problems reprioritized. Patient report given, questions answered & plan of care reviewed with Daxa RUSSO.
[2020-02-11 06:30] VITALS: BP 169/72
[2020-02-11] MEDS: thiamine 100mg tablet PO SCH (08:41)
[2020-02-11] MEDS: metoprolol succinate 25mg (24-HOUR) SR. Tablet PO SCH (08:41)
[2020-02-11] MEDS: lisinopril 20mg tablet PO SCH ×2 (08:41→20:35)
[2020-02-11] MEDS: docusate sod 100mg capsule PO SCH ×2 (08:41→20:34)
[2020-02-11] MEDS: allopurinol 100mg tablet PO SCH (08:41)
[2020-02-11] MEDS: furosemide 40mg tablet PO SCH (08:41)
[2020-02-11] MEDS: folic acid 1mg tablet PO SCH (08:41)
[2020-02-11] MEDS: pantoprazole 40mg Tablet.DR PO SCH (08:42)
[2020-02-11 11:19] VITALS: BP 132/62
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
[2020-02-11 18:00] VITALS: BP 147/65
--- NOTE | 2020-02-11 18:26 | NUR ---
Problems reprioritized. Patient report given, questions answered & plan of care reviewed with RAFAELA Bass.
--- NOTE | 2020-02-11 18:45 | NUR ---
Patient in room PAS IN 901. I have received report from Daxa RUSSO and had the opportunity to ask questions and assume patient care.
[2020-02-11] MEDS: gabapentin 100mg capsule PO SCH (20:35)
[2020-02-11] MEDS: risperiDONE 0.5mg tablet PO SCH (20:36)
--- NOTE | 2020-02-12 06:35 | NUR ---
Patient in room IGOR 359. I have received report from Shelia RUSSO and had the opportunity to ask questions and assume patient care.
--- NOTE | 2020-02-12 06:41 | NUR ---
Problems reprioritized. Patient report given, questions answered & plan of care reviewed with Nilsa RUSSO.
[2020-02-12 07:00] VITALS: BP 140/74
[2020-02-12] MEDS: thiamine 100mg tablet PO SCH (08:18)
[2020-02-12] MEDS: allopurinol 100mg tablet PO SCH (08:18)
[2020-02-12] MEDS: acetaminophen 325mg tablet PO PRN (08:19)
[2020-02-12] MEDS: docusate sod 100mg capsule PO SCH ×2 (08:19→20:39)
[2020-02-12] MEDS: lisinopril 20mg tablet PO SCH ×2 (08:19→20:38)
[2020-02-12] MEDS: folic acid 1mg tablet PO SCH (08:19)
[2020-02-12] MEDS: furosemide 40mg tablet PO SCH (08:19)
[2020-02-12] MEDS: metoprolol succinate 25mg (24-HOUR) SR. Tablet PO SCH (08:19)
[2020-02-12] MEDS: pantoprazole 40mg Tablet.DR PO SCH (08:19)
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
[2020-02-12 18:30] VITALS: BP 152/68
--- NOTE | 2020-02-12 18:38 | NUR ---
Problems reprioritized. Patient report given, questions answered & plan of care reviewed with Shelia RUSSO.
--- NOTE | 2020-02-12 18:43 | NUR ---
Patient in room IGOR 340. I have received report from Nilsa RUSSO and had the opportunity to ask questions and assume patient care.
[2020-02-12] MEDS: risperiDONE 0.5mg tablet PO SCH (20:39)
[2020-02-12] MEDS: gabapentin 100mg capsule PO SCH (20:39)
[2020-02-12] MEDS: naphazoline/pheniramine eye 1 DROP BOTTLE EACHEYE PRN (20:40)
[2020-02-13] VITALS: BP 134/50
[2020-02-13] MEDS: acetaminophen 325mg tablet PO PRN ×3 (02:32→20:30)
[2020-02-13] MEDS: naphazoline/pheniramine eye 1 DROP BOTTLE EACHEYE PRN (03:33)
--- NOTE | 2020-02-13 06:00 | NUR ---
Patient in room IGOR 359. I have received report from RAFAELA Bass and had the opportunity to ask questions and assume patient care.
--- NOTE | 2020-02-13 06:15 | NUR ---
Problems reprioritized. Patient report given, questions answered & plan of care reviewed with Kelly RUSSO.
[2020-02-13] MEDS: allopurinol 100mg tablet PO SCH (07:06)
[2020-02-13] MEDS: furosemide 40mg tablet PO SCH (07:06)
[2020-02-13] MEDS: metoprolol succinate 25mg (24-HOUR) SR. Tablet PO SCH (07:06)
[2020-02-13] MEDS: docusate sod 100mg capsule PO SCH ×2 (07:06→20:31)
[2020-02-13] MEDS: folic acid 1mg tablet PO SCH (07:06)
[2020-02-13] MEDS: thiamine 100mg tablet PO SCH (07:06)
[2020-02-13] MEDS: lisinopril 20mg tablet PO SCH ×2 (07:06→20:31)
[2020-02-13] MEDS: pantoprazole 40mg Tablet.DR PO SCH (07:06)
[2020-02-13 08:00] VITALS: BP 167/71
[2020-02-13 18:00] VITALS: BP 166/64
--- NOTE | 2020-02-13 18:30 | NUR ---
Patient in room IGOR 359. I have received report from RAFAELA Mendoza and had the opportunity to ask questions and assume patient care.
--- NOTE | 2020-02-13 18:31 | NUR ---
Problems reprioritized. Patient report given, questions answered & plan of care reviewed with RAFAELA Mancini.
[2020-02-13] MEDS: risperiDONE 0.5mg tablet PO SCH (20:32)
[2020-02-13] MEDS: gabapentin 100mg capsule PO SCH (20:32)
[2020-02-14 00:28] VITALS: BP 129/44
--- NOTE | 2020-02-14 06:25 | NUR ---
Problems reprioritized. Patient report given, questions answered & plan of care reviewed with RAFAELA Valencia.
--- NOTE | 2020-02-14 06:26 | NUR ---
Patient in room IGOR 359. I have received report from joesph RUSSO and had the opportunity to ask questions and assume patient care.
[2020-02-14 07:00] VITALS: BP 122/72
[2020-02-14] MEDS: docusate sod 100mg capsule PO SCH ×2 (07:26→20:14)
[2020-02-14] MEDS: folic acid 1mg tablet PO SCH (07:26)
[2020-02-14] MEDS: pantoprazole 40mg Tablet.DR PO SCH (07:26)
[2020-02-14] MEDS: thiamine 100mg tablet PO SCH (07:26)
[2020-02-14] MEDS: furosemide 40mg tablet PO SCH (07:26)
[2020-02-14] MEDS: metoprolol succinate 25mg (24-HOUR) SR. Tablet PO SCH (07:26)
[2020-02-14] MEDS: lisinopril 20mg tablet PO SCH ×2 (07:27→20:14)
[2020-02-14] MEDS: allopurinol 100mg tablet PO SCH (07:27)
[2020-02-14] MEDS: naphazoline/pheniramine eye 1 DROP BOTTLE EACHEYE PRN (07:29)
[2020-02-14] MEDS: acetaminophen 325mg tablet PO PRN (08:23)
[2020-02-14 11:31] VITALS: BP 147/65
--- NOTE | 2020-02-14 12:29 | NUR ---
Reassessment: Pt continues meeting nutrient needs with documented 75-100% PO intake. [facility] 02/11, receiving routine bowel care. No nutrition intervention implemented at this time. Will continue to follow. Recommendations: 1) Bowel care per comfort care measures 2) Continue Ensure pudding q breakfast, yogurt BIDLD Addendum: 02/14/20 at [address] Amended: Links added.
--- NOTE | 2020-02-14 17:43 | NUR ---
patient up and about c/o generalized pain medicated with tylenol with effect. Ambulating in hallway. pleasant affect, no new orders.Seen by Dr López.
--- NOTE | 2020-02-14 17:48 | NUR ---
Problems reprioritized. Patient report given, questions answered & plan of care reviewed with Pat RN.
[2020-02-14 18:00] VITALS: BP 139/55
--- NOTE | 2020-02-14 18:48 | NUR ---
Patient in room IGOR 359. I have received report from RAFAELA Valencia and had the opportunity to ask questions and assume patient care.
[2020-02-14] MEDS: risperiDONE 0.5mg tablet PO SCH (20:14)
[2020-02-14] MEDS: gabapentin 100mg capsule PO SCH (20:14)
--- NOTE | 2020-02-14 21:55 | NUR ---
Problems reprioritized. Patient report given, questions answered & plan of care reviewed with RAFAELA Case.
[2020-02-15] MEDS: naphazoline/pheniramine eye 1 DROP BOTTLE EACHEYE PRN ×2 (00:15→07:09)
[2020-02-15] MEDS: acetaminophen 325mg tablet PO PRN (05:52)
--- NOTE | 2020-02-15 06:25 | NUR ---
Patient in room IGOR 359. I have received report from gamaliel RUSSO and had the opportunity to ask questions and assume patient care.
--- NOTE | 2020-02-15 06:37 | NUR ---
Problems reprioritized. Patient report given, questions answered & plan of care reviewed with Annie RUSSO. Addendum: 02/15/20 at 0637 by Evie Wang RN Amended: Links added.
[2020-02-15 07:00] VITALS: BP 159/70
[2020-02-15] MEDS: pantoprazole 40mg Tablet.DR PO SCH (07:09)
[2020-02-15] MEDS: thiamine 100mg tablet PO SCH (07:09)
[2020-02-15] MEDS: allopurinol 100mg tablet PO SCH (07:09)
[2020-02-15] MEDS: folic acid 1mg tablet PO SCH (07:09)
[2020-02-15] MEDS: docusate sod 100mg capsule PO SCH ×2 (07:09→20:36)
[2020-02-15] MEDS: furosemide 40mg tablet PO SCH (07:12)
[2020-02-15] MEDS: metoprolol succinate 25mg (24-HOUR) SR. Tablet PO SCH (07:12)
[2020-02-15] MEDS: lisinopril 20mg tablet PO SCH ×2 (07:14→20:37)
[2020-02-15 12:27] VITALS: BP 157/62
[2020-02-15 18:00] VITALS: BP 140/61
--- NOTE | 2020-02-15 18:36 | NUR ---
patient up and about with pleasant affect. No complaints. All cares given. Ambulating in hallway. Tolerating 100% of meals x2. Report given to Prudence RN
--- NOTE | 2020-02-15 18:59 | NUR ---
Patient in room IGOR 359. I have received report from Annie RUSSO and had the opportunity to ask questions and assume patient care.
[2020-02-15] MEDS: gabapentin 100mg capsule PO SCH (20:36)
[2020-02-15] MEDS: risperiDONE 0.5mg tablet PO SCH (20:37)
[2020-02-16] MEDS: acetaminophen 325mg tablet PO PRN ×2 (00:05→07:14)
[2020-02-16] MEDS: naphazoline/pheniramine eye 1 DROP BOTTLE EACHEYE PRN ×2 (01:43→07:14)
--- NOTE | 2020-02-16 06:34 | NUR ---
Problems reprioritized. Patient report given, questions answered & plan of care reviewed with Evonne RUSSO.
[2020-02-16] MEDS: docusate sod 100mg capsule PO SCH ×2 (07:13→20:32)
[2020-02-16] MEDS: folic acid 1mg tablet PO SCH (07:13)
[2020-02-16] MEDS: pantoprazole 40mg Tablet.DR PO SCH (07:13)
[2020-02-16] MEDS: thiamine 100mg tablet PO SCH (07:13)
[2020-02-16] MEDS: metoprolol succinate 25mg (24-HOUR) SR. Tablet PO SCH (07:13)
[2020-02-16] MEDS: furosemide 40mg tablet PO SCH (07:13)
[2020-02-16] MEDS: allopurinol 100mg tablet PO SCH (07:13)
[2020-02-16] MEDS: lisinopril 20mg tablet PO SCH ×2 (07:13→20:33)
[2020-02-16 07:30] VITALS: BP 144/66
[2020-02-16 18:00] VITALS: BP 149/66
--- NOTE | 2020-02-16 18:11 | NUR ---
GAVE REPORT TO VINCENT RUSSO.
--- NOTE | 2020-02-16 18:14 | NUR ---
Patient in room IGOR 351. I have received report from Evonne RUSSO and had the opportunity to ask questions and assume patient care.
[2020-02-16] MEDS: gabapentin 100mg capsule PO SCH (20:34)
[2020-02-16] MEDS: risperiDONE 0.5mg tablet PO SCH (20:34)
[2020-02-17] MEDS: acetaminophen 325mg tablet PO PRN ×2 (01:24→07:32)
[2020-02-17] MEDS: naphazoline/pheniramine eye 1 DROP BOTTLE EACHEYE PRN (01:39)
[2020-02-17 05:58] LABS: BASOPHILS # (AUTO) 0.1 X10'3 (0-0.2); BASOPHILS % (AUTO) 0.9 % (0-1); EOSINOPHILS # (AUTO) 0.1 X10'3 (0-0.9); EOSINOPHILS % (AUTO) 1.1 % (0-6); HEMATOCRIT 32.9 % (42.0-52.0); HEMOGLOBIN 11.2 g/dl (14.0-17.9); LYMPHOCYTES # (AUTO) 1.9 X10'3 (1.1-4.8); LYMPHOCYTES % (AUTO) 29.7 % (21-51); MEAN CORPUSCULAR HEMOGLOBIN 33.3 PG (27.0-31.0); MEAN CORPUSCULAR VOLUME 97.7 FL (78-98); MEAN PLATELET VOLUME 8.1 FL (7.4-10.4); MONOCYTES # (AUTO) 0.8 X10'3 (0-0.9); MONOCYTES % (AUTO) 12.4 % (2-12); NEUTROPHILS # (AUTO) 3.5 X10'3 (1.8-7.7); NEUTROPHILS % (AUTO) 55.9 % (42-75); PLATELET COUNT 207 X10'3 (140-440); RED BLOOD COUNT 3.37 X10'6 (4.70-6.10); RED CELL DISTRIBUTION WIDTH 13.8 % (11.5-14.5); WHITE BLOOD COUNT 6.3 X10'3 (4.5-11.0)
--- NOTE | 2020-02-17 06:20 | NUR ---
Problems reprioritized. Patient report given, questions answered & plan of care reviewed with Evonne RUSSO.
[2020-02-17 06:31] LABS: ALANINE AMINOTRANSFERASE 42 U/L (12-78); ALBUMIN 3.1 G/DL (3.4-5.0); ALKALINE PHOSPHATASE 98 IU/L (46-116); ANION GAP 6 (8-16); ASPARTATE AMINO TRANSFERASE 38 U/L (10-37); BILIRUBIN,TOTAL 0.4 MG/DL (0.1-1.0); BLOOD UREA NITROGEN 19 MG/DL (7-18); BUN/CREATININE RATIO 14.3 (5.4-32.0); CALCIUM 8.7 MG/DL (8.5-10.1); CHLORIDE 93 MMOL/L (99-107); CREATININE 1.33 MG/DL (0.60-1.10); GLUCOSE 95 MG/DL (70-104); POTASSIUM 3.6 MMOL/L (3.5-5.1); SODIUM 125 MMOL/L (135-145); TOTAL CARBON DIOXIDE 25.8 MMOL/L (24-32); TOTAL PROTEIN 6.3 G/DL (6.4-8.2); eGFR 54 ML/MIN
[2020-02-17] MEDS: thiamine 100mg tablet PO SCH (07:27)
[2020-02-17] MEDS: pantoprazole 40mg Tablet.DR PO SCH (07:27)
[2020-02-17] MEDS: furosemide 40mg tablet PO SCH (07:27)
[2020-02-17] MEDS: folic acid 1mg tablet PO SCH (07:27)
[2020-02-17] MEDS: docusate sod 100mg capsule PO SCH ×2 (07:27→20:29)
[2020-02-17] MEDS: allopurinol 100mg tablet PO SCH (07:27)
[2020-02-17] MEDS: metoprolol succinate 25mg (24-HOUR) SR. Tablet PO SCH (07:32)
[2020-02-17] MEDS: lisinopril 20mg tablet PO SCH ×2 (07:32→20:30)
[2020-02-17 07:36] VITALS: BP 158/79
[2020-02-17 12:02] VITALS: BP 135/61
--- NOTE | 2020-02-17 18:25 | NUR ---
Gave report to Shelia RUSSO.
--- NOTE | 2020-02-17 18:36 | NUR ---
Patient in room IGOR 350. I have received report from Evonne RUSSO and had the opportunity to ask questions and assume patient care.
[2020-02-17 20:00] VITALS: BP_SYST 150
[2020-02-17] MEDS: gabapentin 100mg capsule PO SCH (20:30)
[2020-02-17] MEDS: amLODIPine 5mg tablet PO SCH (20:31)
[2020-02-17] MEDS: risperiDONE 0.5mg tablet PO SCH (20:31)
[2020-02-18] MEDS: acetaminophen 325mg tablet PO PRN ×2 (01:26→08:14)
--- NOTE | 2020-02-18 06:32 | NUR ---
Patient in room IGOR 359. I have received report from kirti RUSSO and had the opportunity to ask questions and assume patient care.
--- NOTE | 2020-02-18 06:37 | NUR ---
Problems reprioritized. Patient report given, questions answered & plan of care reviewed with Annie RUSSO.
--- NOTE | 2020-02-18 06:58 | NUR ---
Patient in room IGOR 359. I have received report from kirti RUSSO and had the opportunity to ask questions and assume patient care.
[2020-02-18 07:00] VITALS: BP 117/75
[2020-02-18] MEDS: furosemide 40mg tablet PO SCH (08:05)
[2020-02-18] MEDS: allopurinol 100mg tablet PO SCH (08:05)
[2020-02-18] MEDS: folic acid 1mg tablet PO SCH (08:05)
[2020-02-18] MEDS: lisinopril 20mg tablet PO SCH ×2 (08:06→20:28)
[2020-02-18] MEDS: thiamine 100mg tablet PO SCH (08:06)
[2020-02-18] MEDS: metoprolol succinate 25mg (24-HOUR) SR. Tablet PO SCH (08:06)
[2020-02-18] MEDS: docusate sod 100mg capsule PO SCH ×2 (08:06→20:27)
[2020-02-18 12:00] VITALS: BP 132/52
--- NOTE | 2020-02-18 18:40 | NUR ---
patient appeared stable all shift. no c/o pain. Ambulating in hallway. seen by Dr Castaneda. Continue with Strict I&O. no specified amount given for fluid restriction . Report given to Shelia RUSSO
--- NOTE | 2020-02-18 18:51 | NUR ---
Patient in room IGOR 350. I have received report from Annie RUSSO and had the opportunity to ask questions and assume patient care.
[2020-02-18 20:00] VITALS: BP 161/81
[2020-02-18] MEDS: gabapentin 100mg capsule PO SCH (20:29)
[2020-02-18] MEDS: risperiDONE 0.5mg tablet PO SCH (20:29)
[2020-02-18] MEDS: amLODIPine 5mg tablet PO SCH (20:29)
[2020-02-19] MEDS: acetaminophen 325mg tablet PO PRN ×3 (00:35→23:35)
--- NOTE | 2020-02-19 06:25 | NUR ---
Patient in room IGOR 359. I have received report from Shelia RUSSO and had the opportunity to ask questions and assume patient care.
--- NOTE | 2020-02-19 06:27 | NUR ---
Problems reprioritized. Patient report given, questions answered & plan of care reviewed with Annie RUSSO.
[2020-02-19 07:00] VITALS: BP 158/70
[2020-02-19] MEDS: folic acid 1mg tablet PO SCH (07:05)
[2020-02-19] MEDS: metoprolol succinate 25mg (24-HOUR) SR. Tablet PO SCH (07:06)
[2020-02-19] MEDS: docusate sod 100mg capsule PO SCH ×2 (07:06→20:09)
[2020-02-19] MEDS: thiamine 100mg tablet PO SCH (07:06)
[2020-02-19] MEDS: allopurinol 100mg tablet PO SCH (07:07)
[2020-02-19] MEDS: furosemide 40mg tablet PO SCH (07:07)
[2020-02-19] MEDS: lisinopril 20mg tablet PO SCH ×2 (07:13→20:09)
[2020-02-19 11:11] LABS: ALBUMIN 3.1 G/DL (3.4-5.0); ANION GAP 7 (8-16); BLOOD UREA NITROGEN 16 MG/DL (7-18); BUN/CREATININE RATIO 13.1 (5.4-32.0); CALCIUM 8.8 MG/DL (8.5-10.1); CHLORIDE 94 MMOL/L (99-107); CREATININE 1.22 MG/DL (0.60-1.10); GLUCOSE 110 MG/DL (70-104); POTASSIUM 3.5 MMOL/L (3.5-5.1); SODIUM 129 MMOL/L (135-145); TOTAL CARBON DIOXIDE 28.4 MMOL/L (24-32); eGFR 59 ML/MIN
--- NOTE | 2020-02-19 12:46 | NUR ---
patient seen by dr Castaneda, labs to be drawn. patient ambulating in hallway. c/o generalized pain given tylenol with effect. will continue to monitor
[2020-02-19 18:00] VITALS: BP 153/79
--- NOTE | 2020-02-19 18:00 | NUR ---
Patient in room IGOR 359. I have received report from Annie RUSSO and had the opportunity to ask questions and assume patient care.
--- NOTE | 2020-02-19 18:02 | NUR ---
Problems reprioritized. Patient report given, questions answered & plan of care reviewed with madelaine RUSSO.
[2020-02-19] MEDS: gabapentin 100mg capsule PO SCH (20:06)
[2020-02-19] MEDS: amLODIPine 5mg tablet PO SCH (20:06)
[2020-02-19] MEDS: risperiDONE 0.5mg tablet PO SCH (23:21)
[2020-02-20] VITALS: BP 113/52
--- NOTE | 2020-02-20 06:30 | NUR ---
Patient in room [facility] 359. I have received report from Manasa RUSSO and had the opportunity to ask questions and assume patient care.
--- NOTE | 2020-02-20 06:58 | NUR ---
Problems reprioritized. Patient report given, questions answered & plan of care reviewed with Dale RN.
[2020-02-20 07:00] VITALS: BP 128/63
[2020-02-20] MEDS: thiamine 100mg tablet PO SCH (07:25)
[2020-02-20] MEDS: docusate sod 100mg capsule PO SCH ×2 (07:25→20:07)
[2020-02-20] MEDS: metoprolol succinate 25mg (24-HOUR) SR. Tablet PO SCH (07:25)
[2020-02-20] MEDS: allopurinol 100mg tablet PO SCH (07:26)
[2020-02-20] MEDS: folic acid 1mg tablet PO SCH (07:26)
[2020-02-20] MEDS: lisinopril 20mg tablet PO SCH ×2 (07:26→20:10)
[2020-02-20] MEDS: furosemide 40mg tablet PO SCH (07:27)
[2020-02-20] MEDS: acetaminophen 325mg tablet PO PRN (07:30)
[2020-02-20 16:04] VITALS: BP 143/63
[2020-02-20 18:00] VITALS: BP 135/61
--- NOTE | 2020-02-20 18:15 | NUR ---
Patient in room IGOR 359. I have received report from Dale RUSSO and had the opportunity to ask questions and assume patient care.
--- NOTE | 2020-02-20 18:36 | NUR ---
Problems reprioritized. Patient report given, questions answered & plan of care reviewed with Manasa RUSSO.
[2020-02-20] MEDS: gabapentin 100mg capsule PO SCH (20:07)
[2020-02-20] MEDS: risperiDONE 0.5mg tablet PO SCH (20:07)
[2020-02-20] MEDS: amLODIPine 5mg tablet PO SCH (20:11)
--- NOTE | 2020-02-21 06:00 | NUR ---
Patient in room IGOR 359. I have received report from RAFAELA Goel and had the opportunity to ask questions and assume patient care.
--- NOTE | 2020-02-21 06:31 | NUR ---
Problems reprioritized. Patient report given, questions answered & plan of care reviewed with Kelly RUSSO.
[2020-02-21 08:00] VITALS: BP 131/65
[2020-02-21] MEDS: docusate sod 100mg capsule PO SCH ×2 (08:00→20:48)
[2020-02-21] MEDS: thiamine 100mg tablet PO SCH (09:00)
[2020-02-21] MEDS: folic acid 1mg tablet PO SCH (09:00)
[2020-02-21] MEDS: metoprolol succinate 25mg (24-HOUR) SR. Tablet PO SCH (09:00)
[2020-02-21] MEDS: lisinopril 20mg tablet PO SCH ×2 (09:01→20:51)
[2020-02-21] MEDS: allopurinol 100mg tablet PO SCH (09:01)
[2020-02-21] MEDS: furosemide 40mg tablet PO SCH (09:02)
[2020-02-21] MEDS: acetaminophen 325mg tablet PO PRN (09:07)
[2020-02-21 11:00] VITALS: BP 135/68
--- NOTE | 2020-02-21 11:28 | NUR ---
Reassessment: Pt s/p BSS 02/[address] recs upgrade to regular consistency food and thin liquids. Pt continues with 75-100% PO intake meeting nutrient needs. Now with a 2L fluid restrict per MD given low serum Na. [facility] 02/19. Will continue to follow per LOS. Recommendations: 1) Bowel care per comfort care measures 2) Continue Ensure pudding q breakfast, yogurt BIDLD Addendum: 02/21/20 at [address] Amended: Links added.
--- NOTE | 2020-02-21 17:46 | NUR ---
Patient urinal accidentally emptied by housekeeping per patient.
[2020-02-21 18:00] VITALS: BP 147/69
--- NOTE | 2020-02-21 18:00 | NUR ---
Patient in room IGOR 359. I have received report from Kelly RUSSO and had the opportunity to ask questions and assume patient care.
--- NOTE | 2020-02-21 18:20 | NUR ---
Problems reprioritized. Patient report given, questions answered & plan of care reviewed with RAFAELA Goel.
[2020-02-21] MEDS: gabapentin 100mg capsule PO SCH (20:48)
[2020-02-21] MEDS: risperiDONE 0.5mg tablet PO SCH (20:48)
[2020-02-21] MEDS: amLODIPine 5mg tablet PO SCH (20:48)
[2020-02-22 00:05] VITALS: BP 126/52
--- NOTE | 2020-02-22 05:54 | NUR ---
Problems reprioritized. Patient report given, questions answered & plan of care reviewed with Kelly RUSSO.
--- NOTE | 2020-02-22 06:00 | NUR ---
Patient in room IGOR 359. I have received report from RAFAELA Goel and had the opportunity to ask questions and assume patient care.
[2020-02-22 06:19] LABS: ANION GAP 9 (8-16); BLOOD UREA NITROGEN 23 MG/DL (7-18); BUN/CREATININE RATIO 19.7 (5.4-32.0); CHLORIDE 98 MMOL/L (99-107); CREATININE 1.17 MG/DL (0.60-1.10); GLUCOSE 86 MG/DL (70-104); POTASSIUM 4.1 MMOL/L (3.5-5.1); SODIUM 131 MMOL/L (135-145); TOTAL CARBON DIOXIDE 24.5 MMOL/L (24-32); eGFR 62 ML/MIN
[2020-02-22 07:00] VITALS: BP 128/67
[2020-02-22] MEDS: metoprolol succinate 25mg (24-HOUR) SR. Tablet PO SCH (07:49)
[2020-02-22] MEDS: thiamine 100mg tablet PO SCH (07:49)
[2020-02-22] MEDS: acetaminophen 325mg tablet PO PRN (07:49)
[2020-02-22] MEDS: furosemide 40mg tablet PO SCH (07:51)
[2020-02-22] MEDS: folic acid 1mg tablet PO SCH (07:51)
[2020-02-22] MEDS: allopurinol 100mg tablet PO SCH (07:51)
[2020-02-22] MEDS: lisinopril 20mg tablet PO SCH ×2 (07:52→22:00)
[2020-02-22] MEDS: docusate sod 100mg capsule PO SCH ×2 (08:00→20:00)
[2020-02-22 18:00] VITALS: BP 151/86
--- NOTE | 2020-02-22 18:39 | NUR ---
Da Addendum: 02/22/20 at 1840 by Kelly Borges RN Problems reprioritized. Patient report given, questions answered & plan of care reviewed with RAFAELA Chavez.
[2020-02-22] MEDS: gabapentin 100mg capsule PO SCH (21:59)
[2020-02-22] MEDS: risperiDONE 0.5mg tablet PO SCH (22:00)
[2020-02-22] MEDS: amLODIPine 5mg tablet PO SCH (22:00)
[2020-02-23] MEDS: naphazoline/pheniramine eye 1 DROP BOTTLE EACHEYE PRN (04:32)
--- NOTE | 2020-02-23 06:44 | NUR ---
Patient in room [facility] 359. I have received report from Scott RUSSO and had the opportunity to ask questions and assume patient care.
[2020-02-23 07:00] VITALS: BP 113/71
[2020-02-23] MEDS: metoprolol succinate 25mg (24-HOUR) SR. Tablet PO SCH (08:12)
[2020-02-23] MEDS: docusate sod 100mg capsule PO SCH ×2 (08:13→19:34)
[2020-02-23] MEDS: allopurinol 100mg tablet PO SCH (08:13)
[2020-02-23] MEDS: thiamine 100mg tablet PO SCH (08:13)
[2020-02-23] MEDS: lisinopril 20mg tablet PO SCH ×2 (08:13→19:34)
[2020-02-23] MEDS: folic acid 1mg tablet PO SCH (08:14)
[2020-02-23] MEDS: acetaminophen 325mg tablet PO PRN ×2 (08:17→19:38)
[2020-02-23 11:00] VITALS: BP 135/66
--- NOTE | 2020-02-23 18:19 | NUR ---
Patient in room IGOR 359. I have received report from Nilsa RUSSO and had the opportunity to ask questions and assume patient care.
--- NOTE | 2020-02-23 18:20 | NUR ---
Problems reprioritized. Patient report given, questions answered & plan of care reviewed with Marleny RUSSO.
[2020-02-23 19:00] VITALS: BP 148/75
[2020-02-23 19:49] VITALS: BP 148/75
[2020-02-23] MEDS: amLODIPine 5mg tablet PO SCH (21:35)
[2020-02-23] MEDS: risperiDONE 0.5mg tablet PO SCH (21:35)
[2020-02-23] MEDS: gabapentin 100mg capsule PO SCH (21:35)
--- NOTE | 2020-02-23 21:41 | NUR ---
Patient is requesting to talk to egg caser. He is concerned about which insurance is paying for his stay here as his grandson has been receiving some bills and apparently paying them. He stated that he was paying for medicare when he was working and first came in to hospital, but now medical is picking it up.
[2020-02-24] VITALS: BP 134/71
[2020-02-24 05:34] LABS: ALBUMIN 3.1 G/DL (3.4-5.0); ANION GAP 10 (8-16); BLOOD UREA NITROGEN 21 MG/DL (7-18); BUN/CREATININE RATIO 18.6 (5.4-32.0); CALCIUM 9.1 MG/DL (8.5-10.1); CHLORIDE 100 MMOL/L (99-107); CREATININE 1.13 MG/DL (0.60-1.10); GLUCOSE 84 MG/DL (70-104); POTASSIUM 4.2 MMOL/L (3.5-5.1); SODIUM 133 MMOL/L (135-145); TOTAL CARBON DIOXIDE 23.5 MMOL/L (24-32); eGFR 65 ML/MIN
--- NOTE | 2020-02-24 06:46 | NUR ---
Problems reprioritized. Patient report given, questions answered & plan of care reviewed with Laverne Ragland.
--- NOTE | 2020-02-24 06:46 | NUR ---
Patient in room IGOR 359. I have received report from RAFAELA Farmer and had the opportunity to ask questions and assume patient care.
[2020-02-24 07:00] VITALS: BP 161/62
[2020-02-24] MEDS: docusate sod 100mg capsule PO SCH ×2 (07:36→21:13)
[2020-02-24] MEDS: metoprolol succinate 25mg (24-HOUR) SR. Tablet PO SCH (07:37)
[2020-02-24] MEDS: thiamine 100mg tablet PO SCH (07:37)
[2020-02-24] MEDS: lisinopril 20mg tablet PO SCH ×2 (07:37→21:14)
[2020-02-24] MEDS: folic acid 1mg tablet PO SCH (07:37)
[2020-02-24] MEDS: acetaminophen 325mg tablet PO PRN ×2 (07:38→21:18)
[2020-02-24] MEDS: allopurinol 100mg tablet PO SCH (07:38)
[2020-02-24 11:57] VITALS: BP 98/48
--- NOTE | 2020-02-24 18:14 | NUR ---
Problems reprioritized. Patient report given, questions answered & plan of care reviewed with RAFAELA Farmer.
--- NOTE | 2020-02-24 18:31 | NUR ---
Patient in room IGOR 359. I have received report from Laverne RUSSO and had the opportunity to ask questions and assume patient care.
[2020-02-24 19:42] VITALS: BP 140/59
[2020-02-24] MEDS: risperiDONE 0.5mg tablet PO SCH (21:14)
[2020-02-24] MEDS: amLODIPine 5mg tablet PO SCH (21:14)
[2020-02-24] MEDS: gabapentin 100mg capsule PO SCH (21:14)
[2020-02-25 04:00] VITALS: BP 127/71
--- NOTE | 2020-02-25 06:57 | NUR ---
Patient in room IG[facility] 359. I have received report from Marleny RUSSO and had the opportunity to ask questions and assume patient care.
[2020-02-25 07:00] VITALS: BP 145/66
--- NOTE | 2020-02-25 07:05 | NUR ---
Problems reprioritized. Patient report given, questions answered & plan of care reviewed with Nilsa RUSSO.
[2020-02-25] MEDS: metoprolol succinate 25mg (24-HOUR) SR. Tablet PO SCH (07:06)
[2020-02-25] MEDS: thiamine 100mg tablet PO SCH (07:06)
[2020-02-25] MEDS: allopurinol 100mg tablet PO SCH (07:08)
[2020-02-25] MEDS: docusate sod 100mg capsule PO SCH ×2 (07:08→20:47)
[2020-02-25] MEDS: acetaminophen 325mg tablet PO PRN (07:08)
[2020-02-25] MEDS: folic acid 1mg tablet PO SCH (07:08)
[2020-02-25] MEDS: lisinopril 20mg tablet PO SCH ×2 (07:09→20:48)
--- NOTE | 2020-02-25 18:44 | NUR ---
Problems reprioritized. Patient report given, questions answered & plan of care reviewed with Mimi RUSSO.
--- NOTE | 2020-02-25 18:45 | NUR ---
Patient in room IGOR 359. I have received report from ROCIO RUSSO and had the opportunity to ask questions and assume patient care.
[2020-02-25 20:00] VITALS: BP 146/66
[2020-02-25] MEDS: gabapentin 100mg capsule PO SCH (20:47)
[2020-02-25] MEDS: risperiDONE 0.5mg tablet PO SCH (20:47)
[2020-02-25] MEDS: amLODIPine 5mg tablet PO SCH (20:48)
[2020-02-26] VITALS: BP 120/51
[2020-02-26 05:20] LABS: ALBUMIN 3.1 G/DL (3.4-5.0); ANION GAP 10 (8-16); BLOOD UREA NITROGEN 23 MG/DL (7-18); BUN/CREATININE RATIO 19.2 (5.4-32.0); CHLORIDE 101 MMOL/L (99-107); GLUCOSE 120 MG/DL (70-104); MAGNESIUM 1.3 MG/DL (1.5-2.4); POTASSIUM 3.8 MMOL/L (3.5-5.1); SODIUM 136 MMOL/L (135-145); TOTAL CARBON DIOXIDE 24.9 MMOL/L (24-32); eGFR 61 ML/MIN
--- NOTE | 2020-02-26 06:33 | NUR ---
Problems reprioritized. Patient report given, questions answered & plan of care reviewed with ALONSO RUSSO.
--- NOTE | 2020-02-26 06:38 | NUR ---
Patient in room IGOR 359. I have received report from Rissa Kwok RN and had the opportunity to ask questions and assume patient care.
--- NOTE | 2020-02-26 06:51 | NUR ---
Problems reprioritized. Patient report given, questions answered & plan of care reviewed with RAFAELA Douglass.
[2020-02-26 07:00] VITALS: BP 136/65
[2020-02-26] MEDS: lisinopril 20mg tablet PO SCH ×2 (07:46→19:59)
[2020-02-26] MEDS: allopurinol 100mg tablet PO SCH (07:46)
[2020-02-26] MEDS: metoprolol succinate 25mg (24-HOUR) SR. Tablet PO SCH (07:46)
[2020-02-26] MEDS: folic acid 1mg tablet PO SCH (07:46)
[2020-02-26] MEDS: docusate sod 100mg capsule PO SCH ×2 (07:46→19:55)
[2020-02-26] MEDS: thiamine 100mg tablet PO SCH (07:46)
[2020-02-26] MEDS: acetaminophen 325mg tablet PO PRN (07:48)
[2020-02-26 12:00] VITALS: BP 105/72
[2020-02-26] MEDS: magnesium Cl slow-release 64mg tablet PO PRN (16:29)
[2020-02-26 18:15] VITALS: BP 126/61
--- NOTE | 2020-02-26 18:31 | NUR ---
Gave report to Addis RUSSO.
--- NOTE | 2020-02-26 18:50 | NUR ---
Patient in room IGOR 359. I have received report from RAFAELA Douglass and had the opportunity to ask questions and assume patient care.
[2020-02-26] MEDS: gabapentin 100mg capsule PO SCH (19:55)
[2020-02-26] MEDS: amLODIPine 5mg tablet PO SCH (19:56)
[2020-02-26] MEDS: risperiDONE 0.5mg tablet PO SCH (19:56)
[2020-02-27] MEDS: magnesium Cl slow-release 64mg tablet PO PRN (04:13)
--- NOTE | 2020-02-27 06:17 | NUR ---
Problems reprioritized. Patient report given, questions answered & plan of care reviewed with RAFAELA Douglass.
[2020-02-27 07:00] VITALS: BP 146/75
[2020-02-27] MEDS: folic acid 1mg tablet PO SCH (08:35)
[2020-02-27] MEDS: acetaminophen 325mg tablet PO PRN ×2 (08:35→19:53)
[2020-02-27] MEDS: docusate sod 100mg capsule PO SCH ×2 (08:35→19:53)
[2020-02-27] MEDS: metoprolol succinate 25mg (24-HOUR) SR. Tablet PO SCH (08:35)
[2020-02-27] MEDS: lisinopril 20mg tablet PO SCH ×2 (08:36→19:53)
[2020-02-27] MEDS: thiamine 100mg tablet PO SCH (08:36)
[2020-02-27] MEDS: allopurinol 100mg tablet PO SCH (08:36)
[2020-02-27 11:36] VITALS: BP 141/69
[2020-02-27 18:15] VITALS: BP 140/63
--- NOTE | 2020-02-27 18:18 | NUR ---
Patient report given, questions answered & plan of care reviewed with Addis RUSSO.
--- NOTE | 2020-02-27 18:42 | NUR ---
Patient in room IGOR 359. I have received report from RAFAELA Douglass and had the opportunity to ask questions and assume patient care.
[2020-02-27] MEDS: gabapentin 100mg capsule PO SCH (19:51)
[2020-02-27] MEDS: amLODIPine 5mg tablet PO SCH (19:52)
[2020-02-27] MEDS: risperiDONE 0.5mg tablet PO SCH (19:53)
--- NOTE | 2020-02-28 06:05 | NUR ---
Problems reprioritized. Patient report given, questions answered & plan of care reviewed with RAFAELA Steinberg.
--- NOTE | 2020-02-28 06:40 | NUR ---
Patient in room IGOR 359. I have received report from RAFAELA Mancini and had the opportunity to ask questions and assume patient care.
[2020-02-28 07:00] VITALS: BP 156/72
[2020-02-28] MEDS: acetaminophen 325mg tablet PO PRN (07:13)
[2020-02-28] MEDS: thiamine 100mg tablet PO SCH (07:13)
[2020-02-28] MEDS: folic acid 1mg tablet PO SCH (07:13)
[2020-02-28] MEDS: docusate sod 100mg capsule PO SCH ×2 (07:13→19:16)
[2020-02-28] MEDS: allopurinol 100mg tablet PO SCH (07:13)
[2020-02-28] MEDS: lisinopril 20mg tablet PO SCH ×2 (07:13→19:16)
[2020-02-28] MEDS: metoprolol succinate 25mg (24-HOUR) SR. Tablet PO SCH (07:13)
[2020-02-28 11:00] VITALS: BP 133/58
--- NOTE | 2020-02-28 11:57 | NUR ---
Reassessment: Pt no longer DNR and comfort care, currently on a limited code status. Fluid restriction has been increased to 2.5 L and last serum Na WNL (02/25). Pt continues with 100% PO intake on regular diet. D/w dietary to send double protein TID for satiety given consistently with 100% PO intake. [facility] 02/26, receiving routine bowel care. Will continue to follow and monitor need for further nutrition intervention. Recommendations: 1) Continue regular diet with 2.5 L fluid restriction per MD 2) Double eggs q breakfast, double protein BIDLD 3) Ensure pudding q breakfast, yogurt BIDLD 4) Routine bowel care 5) Scaled weights per rx Addendum: 02/28/20 at [address] Amended: Links added.
--- NOTE | 2020-02-28 17:57 | NUR ---
Problems reprioritized. Patient report given, questions answered & plan of care reviewed with RAFAELA Mancini.
--- NOTE | 2020-02-28 18:11 | NUR ---
Patient in room IGOR 359. I have received report from RAFAELA Steinberg and had the opportunity to ask questions and assume patient care.
[2020-02-28 18:15] VITALS: BP 144/58
[2020-02-28] MEDS: risperiDONE 0.5mg tablet PO SCH (19:17)
[2020-02-28] MEDS: amLODIPine 5mg tablet PO SCH (19:17)
[2020-02-28] MEDS: gabapentin 100mg capsule PO SCH (19:17)
[2020-02-29] MEDS: acetaminophen 325mg tablet PO PRN ×3 (02:21→21:39)
[2020-02-29 06:30] VITALS: BP 122/63
--- NOTE | 2020-02-29 06:30 | NUR ---
Patient in room IGOR 359. I have received report from RAFAELA Mancini and had the opportunity to ask questions and assume patient care.
--- NOTE | 2020-02-29 06:37 | NUR ---
Problems reprioritized. Patient report given, questions answered & plan of care reviewed with RAFAELA Pacheco.
[2020-02-29] MEDS: folic acid 1mg tablet PO SCH (07:31)
[2020-02-29] MEDS: metoprolol succinate 25mg (24-HOUR) SR. Tablet PO SCH (07:32)
[2020-02-29] MEDS: thiamine 100mg tablet PO SCH (07:32)
[2020-02-29] MEDS: lisinopril 20mg tablet PO SCH ×2 (07:32→21:35)
[2020-02-29] MEDS: allopurinol 100mg tablet PO SCH (07:32)
[2020-02-29] MEDS: docusate sod 100mg capsule PO SCH ×2 (07:33→21:34)
[2020-02-29 11:00] VITALS: BP 102/66
[2020-02-29 18:00] VITALS: BP 148/68
--- NOTE | 2020-02-29 18:25 | NUR ---
Problems reprioritized. Patient report given, questions answered & plan of care reviewed with RAFAELA Farmer.
--- NOTE | 2020-02-29 18:40 | NUR ---
Patient in room IGOR 359. I have received report from Tara RUSSO and had the opportunity to ask questions and assume patient care.
[2020-02-29 21:32] VITALS: BP 127/53
[2020-02-29] MEDS: amLODIPine 5mg tablet PO SCH (21:35)
[2020-02-29] MEDS: risperiDONE 0.5mg tablet PO SCH (21:35)
[2020-02-29] MEDS: gabapentin 100mg capsule PO SCH (21:35)
--- NOTE | 2020-03-01 06:22 | NUR ---
Patient in room IG[facility] 359. I have received report from Marleny RUSSO and had the opportunity to ask questions and assume patient care.
--- NOTE | 2020-03-01 06:55 | NUR ---
Problems reprioritized. Patient report given, questions answered & plan of care reviewed with Lili RUSSO.
[2020-03-01 08:00] VITALS: BP 137/64
[2020-03-01] MEDS: allopurinol 100mg tablet PO SCH (08:05)
[2020-03-01] MEDS: thiamine 100mg tablet PO SCH (08:05)
[2020-03-01] MEDS: folic acid 1mg tablet PO SCH (08:05)
[2020-03-01] MEDS: metoprolol succinate 25mg (24-HOUR) SR. Tablet PO SCH (08:05)
[2020-03-01] MEDS: docusate sod 100mg capsule PO SCH ×2 (08:05→20:32)
[2020-03-01] MEDS: lisinopril 20mg tablet PO SCH ×2 (08:06→20:32)
[2020-03-01 11:54] VITALS: BP 130/64
--- NOTE | 2020-03-01 18:48 | NUR ---
Patient in room IGOR 359. I have received report from Lili RUSSO and had the opportunity to ask questions and assume patient care. Pt sitting on the side of the bed watching tv. No signs of distress, will continue to monitor.
[2020-03-01 19:38] VITALS: BP 104/74
[2020-03-01] MEDS: gabapentin 100mg capsule PO SCH (20:32)
[2020-03-01] MEDS: amLODIPine 5mg tablet PO SCH (20:32)
[2020-03-01] MEDS: risperiDONE 0.5mg tablet PO SCH (20:33)
[2020-03-01] MEDS: naphazoline/pheniramine eye 1 DROP BOTTLE EACHEYE PRN (23:31)
[2020-03-02] VITALS: BP 120/72
--- NOTE | 2020-03-02 06:21 | NUR ---
Problems reprioritized. Patient report given, questions answered & plan of care reviewed with Lili RUSSO.
--- NOTE | 2020-03-02 06:25 | NUR ---
I have received report from Shelia RUSSO and had the opportunity to ask questions and assume patient care.
[2020-03-02 07:00] VITALS: BP 139/60
[2020-03-02 07:29] VITALS: BP 139/60
[2020-03-02] MEDS: allopurinol 100mg tablet PO SCH (08:02)
[2020-03-02] MEDS: folic acid 1mg tablet PO SCH (08:02)
[2020-03-02] MEDS: metoprolol succinate 25mg (24-HOUR) SR. Tablet PO SCH (08:02)
[2020-03-02] MEDS: docusate sod 100mg capsule PO SCH ×2 (08:02→20:33)
[2020-03-02] MEDS: lisinopril 20mg tablet PO SCH ×2 (08:02→20:34)
[2020-03-02] MEDS: thiamine 100mg tablet PO SCH (08:02)
--- NOTE | 2020-03-02 09:00 | NUR ---
Patient in room IGOR 359. I have received report from Lili RUSSO and had the opportunity to ask questions and assume patient care. Addendum: 03/02/20 at 1349 by Tammy Littlejohn RN Pt is A & O x4, Pt is pleasant and in no apparent pain. Pt was assess and AM Physical from Lili RUSSO was reviewed in detail and I agreed with all her findings. Pt is so kind and sweet it is my pleasure to care for him.
[2020-03-02 11:00] VITALS: BP 146/70
--- NOTE | 2020-03-02 18:39 | NUR ---
Patient in room IGOR 354. I have received report from Dominique RUSSO and had the opportunity to ask questions and assume patient care.
[2020-03-02 20:00] VITALS: BP 135/60
[2020-03-02] MEDS: gabapentin 100mg capsule PO SCH (20:34)
[2020-03-02] MEDS: risperiDONE 0.5mg tablet PO SCH (20:35)
[2020-03-02] MEDS: amLODIPine 5mg tablet PO SCH (20:35)
--- NOTE | 2020-03-02 22:02 | NUR ---
pt reminded to use urinal so I&O can be recorded Addendum: 03/02/20 at 2205 by Shelia Herrera RN Amended: Links added.
[2020-03-03] VITALS: BP 133/67
--- NOTE | 2020-03-03 06:55 | NUR ---
Problems reprioritized. Patient report given, questions answered & plan of care reviewed with Abi RUSSO.
--- NOTE | 2020-03-03 06:58 | NUR ---
Patient in room IGOR 359. I have received report from Shelia Hodges RN and had the opportunity to ask questions and assume patient care.
[2020-03-03 07:00] VITALS: BP 135/65
[2020-03-03] MEDS: metoprolol succinate 25mg (24-HOUR) SR. Tablet PO SCH (08:03)
[2020-03-03] MEDS: lisinopril 20mg tablet PO SCH ×2 (08:03→20:39)
[2020-03-03] MEDS: acetaminophen 325mg tablet PO PRN (08:04)
[2020-03-03] MEDS: allopurinol 100mg tablet PO SCH (08:04)
[2020-03-03] MEDS: docusate sod 100mg capsule PO SCH ×2 (08:04→20:39)
[2020-03-03] MEDS: thiamine 100mg tablet PO SCH (08:04)
[2020-03-03] MEDS: folic acid 1mg tablet PO SCH (08:04)
[2020-03-03 11:00] VITALS: BP 147/73
--- NOTE | 2020-03-03 15:43 | NUR ---
PAGER ID: [phone] MESSAGE: Re: Sandra Bolton Rm 359A Pt has been on fluid restrict. No labs since 02/25. Thank you, [facility] [phone]
--- NOTE | 2020-03-03 18:40 | NUR ---
Patient in room IGOR 354. I have received report from Abi RUSSO and had the opportunity to ask questions and assume patient care.
--- NOTE | 2020-03-03 18:53 | NUR ---
Problems reprioritized. Patient report given, questions answered & plan of care reviewed with Shelia Hodges RN.
[2020-03-03 20:00] VITALS: BP 132/56
[2020-03-03] MEDS: gabapentin 100mg capsule PO SCH (20:40)
[2020-03-03] MEDS: risperiDONE 0.5mg tablet PO SCH (20:40)
[2020-03-03] MEDS: amLODIPine 5mg tablet PO SCH (20:40)
[2020-03-04 06:12] LABS: BASOPHILS # (AUTO) 0.1 X10'3 (0-0.2); BASOPHILS % (AUTO) 0.9 % (0-1); EOSINOPHILS # (AUTO) 0.1 X10'3 (0-0.9); EOSINOPHILS % (AUTO) 1.1 % (0-6); HEMATOCRIT 36.3 % (42.0-52.0); HEMOGLOBIN 12.2 g/dl (14.0-17.9); LYMPHOCYTES # (AUTO) 2.4 X10'3 (1.1-4.8); LYMPHOCYTES % (AUTO) 37.5 % (21-51); MEAN CORPUSCULAR HEMOGLOBIN 33.1 PG (27.0-31.0); MEAN CORPUSCULAR HGB CONC 33.7 g/dL (33.0-36.5); MEAN CORPUSCULAR VOLUME 98.2 FL (78-98); MEAN PLATELET VOLUME 8.6 FL (7.4-10.4); MONOCYTES # (AUTO) 0.7 X10'3 (0-0.9); MONOCYTES % (AUTO) 10.6 % (2-12); NEUTROPHILS # (AUTO) 3.2 X10'3 (1.8-7.7); NEUTROPHILS % (AUTO) 49.9 % (42-75); PLATELET COUNT 205 X10'3 (140-440); RED CELL DISTRIBUTION WIDTH 13.9 % (11.5-14.5); WHITE BLOOD COUNT 6.3 X10'3 (4.5-11.0)
[2020-03-04 06:37] LABS: ALBUMIN 3.3 G/DL (3.4-5.0); ANION GAP 10 (8-16); BLOOD UREA NITROGEN 27 MG/DL (7-18); BUN/CREATININE RATIO 22.3 (5.4-32.0); CHLORIDE 104 MMOL/L (99-107); CREATININE 1.21 MG/DL (0.60-1.10); GLUCOSE 87 MG/DL (70-104); POTASSIUM 3.7 MMOL/L (3.5-5.1); SODIUM 137 MMOL/L (135-145); TOTAL CARBON DIOXIDE 23.5 MMOL/L (24-32); eGFR 60 ML/MIN
--- NOTE | 2020-03-04 06:53 | NUR ---
Problems reprioritized. Patient report given, questions answered & plan of care reviewed with Abi RUSSO.
[2020-03-04 07:00] VITALS: BP 135/67
--- NOTE | 2020-03-04 07:25 | NUR ---
Patient in room IGOR 359. I have received report from Shelia Hodges RN and had the opportunity to ask questions and assume patient care.
[2020-03-04] MEDS: allopurinol 100mg tablet PO SCH (08:37)
[2020-03-04] MEDS: thiamine 100mg tablet PO SCH (08:37)
[2020-03-04] MEDS: metoprolol succinate 25mg (24-HOUR) SR. Tablet PO SCH (08:37)
[2020-03-04] MEDS: folic acid 1mg tablet PO SCH (08:38)
[2020-03-04] MEDS: docusate sod 100mg capsule PO SCH ×2 (08:38→20:37)
[2020-03-04] MEDS: lisinopril 20mg tablet PO SCH ×2 (08:38→20:37)
[2020-03-04] MEDS: acetaminophen 325mg tablet PO PRN (08:54)
[2020-03-04 12:00] VITALS: BP 126/66
--- NOTE | 2020-03-04 15:08 | NUR ---
PAGER ID: [phone] MESSAGE: Re: Sandra Bolton Room 359A; pt's Na+ is 137. Continue Fluid Restrict? Thank you, [facility] [phone]
[2020-03-04 18:00] VITALS: BP 130/60
--- NOTE | 2020-03-04 18:30 | NUR ---
Problems reprioritized. Patient report given, questions answered & plan of care reviewed with Shelia Hodges RN.
--- NOTE | 2020-03-04 18:43 | NUR ---
Patient in room IGOR 349. I have received report from Abi RUSSO and had the opportunity to ask questions and assume patient care.
[2020-03-04 20:00] VITALS: BP 130/60
[2020-03-04] MEDS: gabapentin 100mg capsule PO SCH (20:38)
[2020-03-04] MEDS: amLODIPine 5mg tablet PO SCH (20:38)
[2020-03-04] MEDS: risperiDONE 0.5mg tablet PO SCH (20:39)
[2020-03-05] VITALS: BP 124/55
--- NOTE | 2020-03-05 06:35 | NUR ---
Patient in room IGOR 359. I have received report from Shelia RUSSO and had the opportunity to ask questions and assume patient care.
--- NOTE | 2020-03-05 06:35 | NUR ---
Problems reprioritized. Patient report given, questions answered & plan of care reviewed with Varsha RUSSO.
[2020-03-05 07:36] VITALS: BP 141/69
[2020-03-05] MEDS: folic acid 1mg tablet PO SCH (08:10)
[2020-03-05] MEDS: docusate sod 100mg capsule PO SCH ×2 (08:11→20:28)
[2020-03-05] MEDS: lisinopril 20mg tablet PO SCH ×2 (08:11→20:28)
[2020-03-05] MEDS: allopurinol 100mg tablet PO SCH (08:11)
[2020-03-05] MEDS: thiamine 100mg tablet PO SCH (08:11)
[2020-03-05] MEDS: metoprolol succinate 25mg (24-HOUR) SR. Tablet PO SCH (08:11)
[2020-03-05] MEDS: acetaminophen 325mg tablet PO PRN (08:13)
--- NOTE | 2020-03-05 13:40 | NUR ---
Reassessment: Wernicke's encephalopathy likely resolved per MD notes. Pt continues with 100% PO intake while receiving double protein TID meeting nutrient needs. [facility] 03/04. No further nutrition intervention warranted at this time. Will continue to follow. Recommendations: 1) Continue regular diet with 2.5 L fluid restriction per MD 2) Double eggs q breakfast, double protein BIDLD 3) Ensure pudding q breakfast, yogurt BIDLD 4) Routine bowel care 5) Scaled weights per rx Addendum: 03/05/20 at [address] Amended: Links added.
--- NOTE | 2020-03-05 18:19 | NUR ---
Problems reprioritized. Patient report given, questions answered & plan of care reviewed with Carola RUSSO.
--- NOTE | 2020-03-05 18:30 | NUR ---
Patient in room IGOR 359. I have received report from ANNA RUSSO and had the opportunity to ask questions and assume patient care.
[2020-03-05 20:00] VITALS: BP 155/72
[2020-03-05] MEDS: amLODIPine 5mg tablet PO SCH (20:27)
[2020-03-05] MEDS: gabapentin 100mg capsule PO SCH (20:27)
[2020-03-05] MEDS: risperiDONE 0.5mg tablet PO SCH (20:31)
[2020-03-06] VITALS: BP 119/53
--- NOTE | 2020-03-06 06:00 | NUR ---
Patient in room IGOR 359. I have received report from RAFAELA Le and had the opportunity to ask questions and assume patient care.
--- NOTE | 2020-03-06 06:24 | NUR ---
Problems reprioritized. Patient report given, questions answered & plan of care reviewed with MIR RUSSO.
[2020-03-06 07:00] VITALS: BP 101/62
[2020-03-06 07:25] VITALS: BP 130/80
[2020-03-06] MEDS: thiamine 100mg tablet PO SCH (07:30)
[2020-03-06] MEDS: metoprolol succinate 25mg (24-HOUR) SR. Tablet PO SCH (07:30)
[2020-03-06] MEDS: folic acid 1mg tablet PO SCH (07:30)
[2020-03-06] MEDS: lisinopril 20mg tablet PO SCH ×2 (07:31→20:28)
[2020-03-06] MEDS: docusate sod 100mg capsule PO SCH ×2 (07:31→20:27)
[2020-03-06] MEDS: allopurinol 100mg tablet PO SCH (07:31)
[2020-03-06] MEDS: acetaminophen 325mg tablet PO PRN (07:31)
[2020-03-06 11:09] VITALS: BP 136/65
[2020-03-06 18:00] VITALS: BP 149/71
--- NOTE | 2020-03-06 18:16 | NUR ---
Problems reprioritized. Patient report given, questions answered & plan of care reviewed with RAFAELA Bai.
[2020-03-06] MEDS: gabapentin 100mg capsule PO SCH (20:28)
[2020-03-06] MEDS: amLODIPine 5mg tablet PO SCH (20:29)
[2020-03-06] MEDS: risperiDONE 0.5mg tablet PO SCH (20:31)
--- NOTE | 2020-03-07 06:48 | NUR ---
Patient in room IGOR 359. I have received report from RAFAELA Zee and had the opportunity to ask questions and assume patient care.
[2020-03-07 07:00] VITALS: BP 112/55
[2020-03-07] MEDS: allopurinol 100mg tablet PO SCH (07:38)
[2020-03-07] MEDS: thiamine 100mg tablet PO SCH (07:38)
[2020-03-07] MEDS: docusate sod 100mg capsule PO SCH ×2 (07:38→19:55)
[2020-03-07] MEDS: folic acid 1mg tablet PO SCH (07:39)
[2020-03-07] MEDS: metoprolol succinate 25mg (24-HOUR) SR. Tablet PO SCH (07:39)
[2020-03-07] MEDS: lisinopril 20mg tablet PO SCH ×2 (07:39→19:56)
[2020-03-07] MEDS: acetaminophen 325mg tablet PO PRN (07:39)
[2020-03-07 11:00] VITALS: BP 136/66
--- NOTE | 2020-03-07 18:20 | NUR ---
Problems reprioritized. Patient report given, questions answered & plan of care reviewed with RAFAELA Goel, .
--- NOTE | 2020-03-07 18:29 | NUR ---
Patient in room IGOR 359. I have received report from Kelly RUSSO and had the opportunity to ask questions and assume patient care.
[2020-03-07 20:00] VITALS: BP 127/59
[2020-03-07] MEDS: risperiDONE 0.5mg tablet PO SCH (20:00)
[2020-03-07] MEDS: amLODIPine 5mg tablet PO SCH (20:01)
[2020-03-07] MEDS: gabapentin 100mg capsule PO SCH (20:01)
--- NOTE | 2020-03-08 05:47 | NUR ---
Problems reprioritized. Patient report given, questions answered & plan of care reviewed with Kelly RUSSO.
--- NOTE | 2020-03-08 06:00 | NUR ---
Patient in room IGOR 359. I have received report from RAFAELA Goel and had the opportunity to ask questions and assume patient care.
[2020-03-08 07:00] VITALS: BP 138/77
[2020-03-08] MEDS: metoprolol succinate 25mg (24-HOUR) SR. Tablet PO SCH (07:45)
[2020-03-08] MEDS: docusate sod 100mg capsule PO SCH ×2 (07:45→20:04)
[2020-03-08] MEDS: folic acid 1mg tablet PO SCH (07:45)
[2020-03-08] MEDS: allopurinol 100mg tablet PO SCH (07:46)
[2020-03-08] MEDS: acetaminophen 325mg tablet PO PRN (07:46)
[2020-03-08] MEDS: thiamine 100mg tablet PO SCH (07:46)
[2020-03-08] MEDS: lisinopril 20mg tablet PO SCH ×2 (07:46→20:03)
[2020-03-08 11:00] VITALS: BP 149/73
--- NOTE | 2020-03-08 18:00 | NUR ---
Patient in room IGOR 359. I have received report from Kelly RUSSO and had the opportunity to ask questions and assume patient care.
--- NOTE | 2020-03-08 18:00 | NUR ---
Problems reprioritized. Patient report given, questions answered & plan of care reviewed with RAFAELA Goel.
[2020-03-08 20:00] VITALS: BP 114/60
[2020-03-08] MEDS: risperiDONE 0.5mg tablet PO SCH (20:02)
[2020-03-08] MEDS: gabapentin 100mg capsule PO SCH (20:02)
[2020-03-08] MEDS: amLODIPine 5mg tablet PO SCH (20:04)
--- NOTE | 2020-03-09 06:07 | NUR ---
Problems reprioritized. Patient report given, questions answered & plan of care reviewed with Dale RN.
--- NOTE | 2020-03-09 06:13 | NUR ---
Patient in room [facility] 359. I have received report from Manasa RUSSO and had the opportunity to ask questions and assume patient care.
[2020-03-09 06:24] LABS: ALBUMIN 3.5 G/DL (3.4-5.0); ANION GAP 10 (8-16); BLOOD UREA NITROGEN 26 MG/DL (7-18); BUN/CREATININE RATIO 22.4 (5.4-32.0); CALCIUM 9.2 MG/DL (8.5-10.1); CHLORIDE 103 MMOL/L (99-107); CREATININE 1.16 MG/DL (0.60-1.10); GLUCOSE 100 MG/DL (70-104); POTASSIUM 3.8 MMOL/L (3.5-5.1); SODIUM 135 MMOL/L (135-145); TOTAL CARBON DIOXIDE 22.4 MMOL/L (24-32); eGFR 63 ML/MIN
[2020-03-09] MEDS: docusate sod 100mg capsule PO SCH ×2 (07:47→20:11)
[2020-03-09] MEDS: allopurinol 100mg tablet PO SCH (07:48)
[2020-03-09] MEDS: thiamine 100mg tablet PO SCH (07:48)
[2020-03-09] MEDS: lisinopril 20mg tablet PO SCH ×2 (07:48→20:11)
[2020-03-09] MEDS: metoprolol succinate 25mg (24-HOUR) SR. Tablet PO SCH (07:49)
[2020-03-09] MEDS: folic acid 1mg tablet PO SCH (07:49)
[2020-03-09] MEDS: acetaminophen 325mg tablet PO PRN (07:50)
[2020-03-09 09:09] VITALS: BP 161/77
--- NOTE | 2020-03-09 18:21 | NUR ---
Problems reprioritized. Patient report given, questions answered & plan of care reviewed with Manasa RUSSO.
--- NOTE | 2020-03-09 18:31 | NUR ---
Patient in room IGOR 359. I have received report from Dale RUSSO and had the opportunity to ask questions and assume patient care.
[2020-03-09 20:00] VITALS: BP 168/78
[2020-03-09] MEDS: gabapentin 100mg capsule PO SCH (20:11)
[2020-03-09] MEDS: risperiDONE 0.5mg tablet PO SCH (20:11)
[2020-03-09] MEDS: amLODIPine 5mg tablet PO SCH (20:11)
--- NOTE | 2020-03-10 06:15 | NUR ---
Patient in room IGOR 359. I have received report from KATERINE RUSSO and had the opportunity to ask questions and assume patient care.
--- NOTE | 2020-03-10 06:21 | NUR ---
Problems reprioritized. Patient report given, questions answered & plan of care reviewed with Dale RN.
[2020-03-10] MEDS: thiamine 100mg tablet PO SCH (07:32)
[2020-03-10] MEDS: lisinopril 20mg tablet PO SCH ×2 (07:33→19:44)
[2020-03-10] MEDS: allopurinol 100mg tablet PO SCH (07:33)
[2020-03-10] MEDS: docusate sod 100mg capsule PO SCH ×2 (07:33→19:43)
[2020-03-10] MEDS: metoprolol succinate 25mg (24-HOUR) SR. Tablet PO SCH (07:34)
[2020-03-10] MEDS: folic acid 1mg tablet PO SCH (07:34)
[2020-03-10] MEDS: acetaminophen 325mg tablet PO PRN (07:35)
[2020-03-10 09:33] VITALS: BP 160/78
[2020-03-10 11:24] VITALS: BP 141/64
--- NOTE | 2020-03-10 18:27 | NUR ---
Problems reprioritized. Patient report given, questions answered & plan of care reviewed with Lulu RUSSO.
[2020-03-10] MEDS: amLODIPine 5mg tablet PO SCH (19:44)
[2020-03-10] MEDS: gabapentin 100mg capsule PO SCH (19:44)
[2020-03-10] MEDS: risperiDONE 0.5mg tablet PO SCH (19:45)
[2020-03-10 20:00] VITALS: BP 149/69
--- NOTE | 2020-03-11 06:25 | NUR ---
Reported off to Maggie RUSSO. Patient is resting with relaxed and unlabored respirations on room air. In no apparent distress. Call light and items of frequent use within reach.
--- NOTE | 2020-03-11 06:34 | NUR ---
Patient in room IGOR 359A. I have received report from RAFAELA ESCALONA and had the opportunity to ask questions and assume patient care.
[2020-03-11 07:00] VITALS: BP 152/72
[2020-03-11] MEDS: allopurinol 100mg tablet PO SCH (08:46)
[2020-03-11] MEDS: metoprolol succinate 25mg (24-HOUR) SR. Tablet PO SCH (08:46)
[2020-03-11] MEDS: thiamine 100mg tablet PO SCH (08:46)
[2020-03-11] MEDS: lisinopril 20mg tablet PO SCH ×2 (08:46→19:49)
[2020-03-11] MEDS: docusate sod 100mg capsule PO SCH ×2 (08:46→19:49)
[2020-03-11] MEDS: folic acid 1mg tablet PO SCH (08:46)
[2020-03-11] MEDS: acetaminophen 325mg tablet PO PRN (08:47)
--- NOTE | 2020-03-11 18:20 | NUR ---
Received report from primary care nurse Marlene RUSSO. Assumed patient care. Patient is awake and alert on room air in no apparent distress awaiting his dinner. Call light and items of frequent use within reach. Will continue to monitor for changes.
--- NOTE | 2020-03-11 18:44 | NUR ---
Problems reprioritized. Patient report given, questions answered & plan of care reviewed with RAFAELA ESCALONA.
[2020-03-11] MEDS: gabapentin 100mg capsule PO SCH (19:49)
[2020-03-11] MEDS: amLODIPine 5mg tablet PO SCH (19:49)
[2020-03-11] MEDS: risperiDONE 0.5mg tablet PO SCH (19:58)
--- NOTE | 2020-03-12 06:03 | NUR ---
Reported off to Marlene RUSSO. Patient is awake and alert on room air. In no apparent distress. Call light and items of frequent use within reach.
--- NOTE | 2020-03-12 06:10 | NUR ---
Patient in room IGOR 359A. I have received report from RAFAELA ESCALONA and had the opportunity to ask questions and assume patient care.
[2020-03-12 07:00] VITALS: BP 146/80
[2020-03-12 07:27] VITALS: BP_SYST 146
[2020-03-12] MEDS: metoprolol succinate 25mg (24-HOUR) SR. Tablet PO SCH (07:27)
[2020-03-12] MEDS: allopurinol 100mg tablet PO SCH (07:27)
[2020-03-12] MEDS: docusate sod 100mg capsule PO SCH (07:27)
[2020-03-12] MEDS: thiamine 100mg tablet PO SCH (07:27)
[2020-03-12] MEDS: folic acid 1mg tablet PO SCH (07:27)
[2020-03-12] MEDS: lisinopril 20mg tablet PO SCH (07:27)
[2020-03-12] MEDS: acetaminophen 325mg tablet PO PRN (07:28)
--- NOTE | 2020-03-12 13:45 | NUR ---
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
== END 2020-03-12 13:44 | disposition home health service (06) | DRG 640 ==
LOC: ER 18:41 → ED HOLD 11-18 09:12 → UNDOADMIN 11-18 09:12 → ER 11-18 11:17 → SUR 3N 11-18 11:29 → ED HOLD 11-18 11:29 → SUR 3N 11-18 11:40 → ED HOLD 11-20 08:27 → SUR 3N 11-20 18:23 → PCU 3S 12-05 14:22 → SUR 3N 12-16 15:45 → ORTHO 4S 01-09 07:00 → SUR 3N 01-17 14:13
PROVIDERS: ADMIT Internal Medicine; ATTEND Internal Medicine
DX: E51.2 Wernicke's encephalopathy (principal); N17.0 Acute kidney failure with tubular necrosis; E87.1 Hypo-osmolality and hyponatremia; F10.231 Alcohol dependence with withdrawal delirium; F32.3 Major depressive disorder, single episode, severe with psychotic features; E83.42 Hypomagnesemia; M19.90 Unspecified osteoarthritis, unspecified site; Z82.49 Family history of ischemic heart disease and other diseases of the circulatory system; Z79.899 Other long term (current) drug therapy; Z78.1 Physical restraint status; Z66 Do not resuscitate; I12.9 Hypertensive chronic kidney disease with stage 1 through stage 4 chronic kidney disease, or unspecified chronic kidney disease; K21.9 Gastro-esophageal reflux disease without esophagitis; K43.9 Ventral hernia without obstruction or gangrene; M10.9 Gout, unspecified; N18.9 Chronic kidney disease, unspecified; Z51.5 Encounter for palliative care; E86.0 Dehydration; D53.9 Nutritional anemia, unspecified; B18.2 Chronic viral hepatitis C; E87.6 Hypokalemia; K72.90 Hepatic failure, unspecified without coma
CPT/HCPCS: 36415; 70450; 70544; 70551; 71045; 76937; 80048; 80051; 80053; 80305; 80320; 81003; 82140; 82150; 82607; 82948; 83605; 83690; 83735; 84100; 84132; 84145; 84443; 84550; 85025; 85610; 86592; 87040; 87081; 92508; 92523; 92616; 97110; 97112; 97116; 97161; 97530; 97535; 99285; C9113; G0378; J0360; J1200; J1630; J1644; J2060; J3411; J3480; J3490; J7030; J7042; J7060; J7070; Q0163